=== PATIENT | male | born 1965 | race Caucasian/White ===

== ENCOUNTER 2017-07-10 09:02 | Day surgery (SDC) | payer OTHER ==
[~2017-07-10] VITALS: Ht 177.8 cm; Wt 61.7 kg
[~2017-07-10 09:02] MED LIST: ARPZ10T PO; CITA40TA19 PO; CLON0.5T3 PO; CPR500T PO; FLUC200T45 PO; HYDR25CA5 PO; METO10TA3 PO; NF-ESOM40C PO; NFPRILOC40 PO; NITR-65 PO; PANT40TA2 PO; QUET100T PO; SERT100T PO; SERT50TA9 PO; SUCR1TAB36 PO; TRAM50TA2 PO; TRAZ150T42 PO; TRM50T PO
[2017-07-10] MEDS ORDERED: LACTATED RINGERS 1,000 ML IV STA (09:16)
--- NOTE | 2017-07-10 09:20 | Progress Note-Pre Operative ---
Pre-Operative Progress Note H&P Reviewed The H&P was reviewed, patient examined and no changes noted. Date Seen by Provider: Jul 10, 2017 Time Seen by Provider: 09:20 Date H&P Reviewed: Jul 10, 2017 Time H&P Reviewed: 09:20 Pre-Operative Diagnosis: epigastric abdominal pain, reflux, melena JEFFREY RICHMOND DO Jul 10, 2017 09:20
[2017-07-10 09:24] VITALS: BP 116/77
[2017-07-10] MEDS ORDERED: HURRICAINE EXT TUBE (BENZOCAINE) ONE (09:27)
[2017-07-10] MEDS ORDERED: HURRICAINE EXT TUBE (BENZOCAINE) XX PRN (09:30)
[2017-07-10] MEDS ORDERED: PROPOFOL INJECTION 50 ML IV ONE (09:31)
[2017-07-10] MEDS ORDERED: MIDAZOLAM 2 MG/2 ML (VERSED) VIAL ONE (09:32)
--- NOTE | 2017-07-10 09:35 | Progress Note-Post Operative ---
Post-Operative Progess Note Surgeon (s)/Flare Maker (s) Surgeon JEFFREY RICHMOND DO Flare Maker: na Pre-Operative Diagnosis epigastric abdominal pain, reflux, melena Post-Operative Diagnosis antral mucosal change, hiatal hernia Procedure & Operative Findings Date of Procedure 07/10/17 Procedure Performed/Findings egd c biopsy antrum Anesthesia Type per galvanizing pot runner Estimated Blood Loss Estimated blood loss (mL): none Specimens/Packing Specimens Removed antrum JEFFREY RICHMOND DO Jul 10, 2017 09:35
--- NOTE | 2017-07-10 10:39 | Progress Note-Post Operative ---
Post-Operative Progess Note Surgeon (s)/Rim Roller Setter (s) Surgeon JEFFREY RICHMOND DO Rim Roller Setter: na Pre-Operative Diagnosis epigastric abdominal pain, reflux, melena Post-Operative Diagnosis small hiatal hernia, small bowel with healing ulceration, healing antral ulcer c small punctate ulcerations, esophageal inflammation likely mathis's colonoscopy normal except slight mucosal change descending colon Procedure & Operative Findings Date of Procedure 07/10/17 Procedure Performed/Findings egd c biopsies, colonoscopy with cold biopsy descending colon Anesthesia Type per heat treater helper Estimated Blood Loss Estimated blood loss (mL): scant Specimens/Packing Specimens Removed antrum, body stomach, distal esophagus, descending colon JEFFREY RICHMOND DO Jul 10, 2017 10:39
[2017-07-10] MEDS ORDERED: SUCR1TAB36 PO (10:40)
[2017-07-10] MEDS ORDERED: PANT40TA2 PO (10:40)
--- NOTE | 2017-07-10 10:41 | Discharge Inst-Simple/Standard ---
Discharge Inst-Standard Discharge Medications New, Converted or Re-Newed RX: Transmitted to Pharmacy Patient Instructions/Follow Up Plan of Care/Instructions/FU: 3 weeks Malissa Activity as Tolerated: Yes Discharge Diet: Regular Diet JEFFREY RICHMOND DO Jul 10, 2017 10:41
[2017-07-10 10:50] VITALS: BP 101/62
[2017-07-10 11:20] VITALS: BP 102/63
[2017-07-10 11:30] VITALS: BP 102/63
--- NOTE | 2017-07-10 22:08 | OPERATIVE REPORT ---
DATE OF SERVICE: 07/10/2017 PREOPERATIVE DIAGNOSES: Epigastric abdominal pain, reflux, melena. POSTOPERATIVE DIAGNOSES: Small hiatal hernia, small bowel with healing antral ulceration with small punctate ulcerations present as well, esophageal inflammation likely Damian's, colonoscopy normal except for some slight mucosal changes of the descending colon. PROCEDURE: EGD with biopsies, colonoscopy with cold biopsy descending colon. SURGEON: Jeffrey Leonardo DO. ANESTHESIA: Per CROP DUSTER. ESTIMATED BLOOD LOSS: Scant. COMPLICATIONS: None. INDICATIONS: The patient is a 51-year-old male who has history of SMA syndrome. He underwent significant bowel surgery resecting small bowel. He understands risks and benefits of procedures going to be performed today and wished to proceed. Consent was signed and on the chart. DESCRIPTION OF PROCEDURE: The patient was taken to the endoscopy suite, placed in left lateral recumbent position. Timeout was performed. Scope was inserted in mouth, down the esophagus, stomach, through the pylorus into the first portion of the duodenum that then had the appearance of two limbs of small bowel that were attached to it. Down one limb, there was question of slight AV malformation or a small ulceration. There is no active bleeding present. The other limb had normal appearance that was able to be visualized. The scope was then slowly retracted back. There was no other pathology from this point to the pylorus. In the antrum, the antrum had small punctate ulcerations and also the appearance of a small healing ulcer almost completely healed. Biopsy of this area was obtained. The scope was also retroflexed noting some mucosal changes to the body of the stomach, which biopsy was obtained. Small hiatal hernia noted. The scope was then returned to its normal position, slowly withdrawn into the distal esophagus, which had erythematous changes consistent with Damian's. There was one area that had a little bit of firmness by feel. Multiple biopsies were obtained from this area circumferentially. The scope was slowly retracted back noting no other pathology. Digital rectal exam was performed and there were no palpable polyps, mass or ulcerations. The scope was inserted in the rectum and advanced all the way to the cecum with minimal difficulty. Prep was adequate with irrigation and suction. The scope was then slowly retracted back. There were no polyps, masses or ulcerations in the cecum, ascending and transverse colon. Within the descending colon there was some slight mucosal change in one small section. Therefore, a cold biopsy was obtained. Scope was continued and slowly retracted back noting no other pathology. There were no polyps, masses or ulcerations within the descending or sigmoid colon. Once in the rectum, scope was also retroflexed noting no other pathology. Scope was then returned to its normal position, slowly withdrawn until completely removed. RECOMMENDATIONS: The patient will be started on Protonix 40 mg daily and Carafate 1 gram four times a day. We would recommend repeating EGD in approximately three to six months and depending upon pathology. The patient's colonoscopy, if family history of colon cancer or any issues, we would recommend repeat colonoscopy in 5 years. If he begins having symptoms or any change in bowels, we would consider repeating at that time. If he has no family history or no problems, we would recommend repeat colonoscopy in 10 years. The patient will follow up in the office in approximately 3 weeks. If he has any problems prior to that, he should be seen at that time. Job ID: [id number] DocumentID: [id number] Dictated Date: 07/10/2017 10:48:43 Band Straightener Date: 07/10/2017 19:32:30 Dictated By: JEFFREY LEONARDO DO
== END 2017-07-10 11:30 | disposition home or self-care (01) ==
LOC: ENDO 09:02
PROVIDERS: ATTEND Surgery
DX: K92.1 Melena (principal); K21.9 Gastro-esophageal reflux disease without esophagitis; K44.9 Diaphragmatic hernia without obstruction or gangrene; K25.9 Gastric ulcer, unspecified as acute or chronic, without hemorrhage or perforation; F17.210 Nicotine dependence, cigarettes, uncomplicated
CPT/HCPCS: 88305

== ENCOUNTER 2018-10-04 06:26 | Outpatient (CLI) | payer BC ==
[~2018-10-04] VITALS: Ht 177.8 cm; Wt 61.7 kg
[2018-10-04] MEDS ORDERED: ZINC50TA4 PO (14:14)
[2018-10-04] MEDS ORDERED: MULT-351 PO (14:14)
[2018-10-04] MEDS ORDERED: ASCO500C17 PO (14:14)
== END 2018-10-04 14:59 | disposition home or self-care (01) ==
LOC: PREOP 06:26
PROVIDERS: ATTEND Surgery
DX: Z01.818 Encounter for other preprocedural examination (principal)

== ENCOUNTER 2018-10-08 14:27 | Day surgery (SDC) | payer BC ==
[~2018-10-08] VITALS: Ht 177.8 cm; Wt 61.7 kg
[~2018-10-08 14:27] MED LIST changes: +ASCO500C17 PO; +MULT-351 PO; +ZINC50TA4 PO
--- OUTSIDE RECORDS SUMMARY | 2018-10-08 14:29 | XMS REPORT ---
Author Author GORDON KEATING [facility] Address [address] [place] [address] Care Team Providers Care Manufacturing Process Technician Name Role Phone GORDON KEATING Unavailable PROBLEMS Type Condition ICD9-CM Code FBX09-PP Code Onset Dates Condition Status SNOMED Code Problem Other chronic pain G89.29 Active 37991721 Problem Paranoid ideation F22 Active 903878729 Problem Anxiety, generalized F41.1 Active 53849228 Problem Damian''s esophagus without dysplasia K22.70 Active 040215120 Problem Mixed hyperlipidemia E78.2 Active 821859180 Problem Eosinophilia D72.1 Active 271340919 Problem Low back pain M54.5 Active 282757078 Problem GERD with esophagitis K21.0 Active 094379030 Problem Insomnia, unspecified type G47.00 Active 070163248 Problem Chronic fatigue R53.82 Active 87588960 Problem Moderate episode of recurrent major depressive disorder F33.1 Active 964587246 Problem Erectile dysfunction, unspecified erectile dysfunction type N52.9 Active 070656895 Problem Arthritis M19.90 Active 6584789 ALLERGIES No Known Allergies ENCOUNTERS Encounter Location Date Diagnosis [facility] [id number] [place] [address] Jul, Acute sinusitis J01.90 and Acute bronchitis J20.9 [facility] [id number] [place] [address] 16[address] Jul, Arthritis M19.90 [facility] [address] [address] Jun, Arthritis M19.90 [facility] [address] [id number] [place] [address]- 1404 May, Damian''s esophagus without dysplasia K22.70 ; Other chronic pain G89.29 ; Low back pain M54.5 ; Arthritis M19.90 ; Insomnia, unspecified type G47.00 ; GERD with esophagitis K21.0 and Anxiety, generalized F41.1 [place] [address] [address] May, [place] [address] [address] Jan, Other chronic pain G89.29 [place] [address] [address]- 4843 Nov, Other chronic pain G89.29 [place] [address] [address] Oct, Other chronic pain G89.29 [place] [address] [address] Sep, Moderate episode of recurrent major depressive disorder F33.1 ; GERD with esophagitis K21.0 ; Erectile dysfunction, unspecified erectile dysfunction type N52.9 ; Other chronic pain G89.29 ; Damian''s esophagus without dysplasia K22.70 and Mixed hyperlipidemia E78.2 [place] [address] [address]- [address] Sep, Low back pain M54.5 [place] [address] [address] Aug, GERD with esophagitis K21.0 ; Reactive depression F32.9 ; Chronic fatigue R53.82 ; Arthritis M19.90 ; Other chronic pain G89.29 and Low back pain M54.5 [place] [id number] [place] [address]- [address] Jul, Encounter to establish care with new doctor Z76.89 [place] [address] [address] Jun, Other chronic pain G89.29 [place] [address] [address]- 58[address] Jun, Other chronic pain G89.29 [place] [address] [address] [id number] [place] [address]- [address] May, GERD with esophagitis K21.0 and Other chronic pain G89.29 [place] [address] [id number] [place] [address] 23[address]- 1277 Apr, Low back pain M54.5 [place] [address] [address]- [address] Apr, Reactive depression F32.9 [place] [address] [address]- [address] Mar, Encounter to establish care with new doctor Z76.89 ; Weight loss, unintentional R63.4 ; Moderate episode of recurrent major depressive disorder F33.1 ; Chronic fatigue R53.82 ; Low back pain M54.5 ; Arthritis M19.90 ; Controlled substance agreement signed Z79.899 and High risk medication use Z79.899 [place] [address] [id number] [place] [address] 00248- 7666 Mar, Low back pain M54.5 [place] [address] [id number] [place] [address] 67148- 9[address] Mar, Reactive depression F32.9 ; Paranoid ideation F22 and Anxiety, generalized F41.1 [place] [address] [id number] [place] [address] 80943- 7196 Mar, [place] [address] [id number] [place] [address] 95510- 3922 Feb, [place] [address] [id number] [place] [address]28- 7904 Feb, [place] [address] [id number] [place] [address] 85717- 4626 Feb, Epigastric pain R10.13 ; Weight loss R63.4 and Eustachian tube dysfunction, left H69.82 [place] [id number] [place] [address] 98828- 4594 Jan, Reactive depression F32.9 and Low back pain M54.5 [place] [address] [id number] [place] [address] 61159- 6089 Sep, Reactive depression F32.9 and Irritable bowel syndrome without diarrhea K58.9 [place] [address] [id number] [place] [address] 44850- 7738 Aug, [place] [address] [id number] [place] [address] 76657- 6778 May, [place] [address] [id number] [place] [address] 87795- 4248 May, [place] [address] [id number] [place] [address] 47102- 6721 Mar, [place] [address] [id number] [place] [address] 72294- 8281 Mar, Leukocytosis, unspecified type D72.829 [place] [id number] [place] [address] 12348- 9072 Mar, Leukocytosis, unspecified type D72.829 [place] [address] [id number] [place] [address] 97159- 1329 Feb, Weight loss R63.4 ; Syncope, unspecified syncope type R55 ; Low back pain M54.5 ; Other chronic pain G89.29 and Reactive depression F32.9 [place] [address] [id number] [place] [address] 54294- 1566 Jul, [place] [address] [id number] [place] [address] 76529- 8891 May, Arthritis M19.90 [place] [address] [address] [id number] [place] [address] 11682- 5554 Apr, Chronic pain 338.29 [place] [address] [address] [id number] [place] [address] 36773- 3196 Apr, Anxiety state, unspecified 300.00 [facility] [address] [address] 17 Jan, 2015 Anxiety state, unspecified 300.00 [facility] [address] [address] 15 Jan, 2015 Chronic pain 338.29 and Anxiety state, unspecified 300.00 [facility] [address] [address] 12 Jan, 2015 [facility] [address] [address] 1611 Nov, [facility] [address] [address] 2199 Nov, [facility] [address] [address]- 7856 Oct, [facility] [address] [address]- 1455 Oct, [facility] [address] [address]- 5008 Oct, [facility] [address] [address]- 4990 Oct, [facility] [address] [address]- 0929 Sep, [facility] [place] [facility] [address] [address]- 7076 Sep, [facility] [place] [facility] [address] [address]- 7699 Sep, [facility] [place] [facility] [address] [address] Sep, [facility] [place] [facility] [address] [address]- 0364 May, [facility] [place] [facility] [address] [facility] [id number] [place] [address]- 5265 May, [facility] [place] [facility] [address] [id number] [place] [address]- 3814 Apr, [facility] [place] [facility] [address] [id number] [place] [address] Apr, [facility] [place] [facility] [address] [id number] [place] [address]- 4457 Jan, [facility] [place] [facility] [address] [id number] [place] [address]- 2958 Jan, [facility] [place] [facility] [address] [id number] [place] [address]- 7827 Jan, [facility] [place] [facility] [address] [id number] [place] [address]- 5432 Jan, [facility] [place] [facility] [address] [id number] [place] [address]- 6984 Jan, [facility] [place] [facility] [address] [id number] [place] [address]- 0418 December, [facility] [place] [facility] [address] [id number] [place] [address]- 5692 December, [facility] [place] [facility] [address] [id number] [place] [address]- 1729 Sep, [facility] [place] [facility] [address] [id number] [place] [address]- 2585 Sep, [facility] [place] [facility] [address] [id number] [place] [address] Aug, [facility] [place] [facility] [address] [id number] [place] [address]- 9754 Aug, [facility] [place] [facility] [address] [id number] [place] [address]- 3973 Jun, [facility] [place] [facility] [address] [id number] [place] [address]- 7258 Jun, [facility] [address] [id number] [place] [address]- 7850 May, [facility] [place] [facility] [address] [id number] [place] [address]- 6596 May, [facility] [place] [facility] [address] [facility] [id number] [place] [address] 2546 May, [facility] [place] [facility] [address] [id number] [place] [address]- 4367 Feb, [facility] [place] [facility] [address] [id number] [place] [address]- 6752 Jan, [facility] [place] [facility] [address] [id number] [place] [address]- 8766 Jan, [facility] [place] [facility] [address] [id number] [place] [address]- 7766 Jan, [facility] [place] [facility] [address] [id number] [place] [address]- 5165 Nov, [facility] [place] [facility] [address] [id number] [place] [address]- 8421 Sep, [facility] [place] [facility] [address] [id number] [place] [address]- 0876 Aug, [facility] [place] [facility] [address] [id number] [address]- 4047 Jul, [facility] [place] [facility] [address] [id number] [address]- 1421 Jul, [facility] [place] [facility] [address] [id number] [place] [address]- 1735 Jul, [facility] [place] [facility] [address] [facility] [id number] [place] [address]- 9752 Jul, [facility] [place] [facility] [address] [facility] [id number] [place] [address]- 3303 Jul, [facility] [place] [facility] [id number] Jul, [facility] [address] [address]- 8071 Jun, [facility] [address] [address]- 5309 Jun, [facility] [address] [address]- 6581 Jun, [facility] [address] [address]- 1187 Jun, [facility] [address] [address]- 0993 Feb, [facility] [address] [address]- 1212 Jan, [facility] [address] [address]- 6243 Jan, [facility] [address] [address]- 8982 Feb, [facility] [address] [address]- 4968 Jan, IMMUNIZATIONS No Known Immunizations SOCIAL HISTORY Never Assessed REASON FOR VISIT congestion,chest tightness, cough, head feels full, dizzy feeling, pt doesn't report any fevers but night sweats last night, vomitted yellow mucus that was thick Shelly Argueta PLAN OF CARE Activity Details Follow Up if not improving with PCP or reg follow up Reason: VITAL SIGNS Height 69 in 2018-08-02 Weight 147.2 lbs 2018-08-02 Temperature 97.9 degrees Fahrenheit 2018-08-02 Heart Rate 83 bpm 2018-08-02 Respiratory Rate 20 2018-08-02 BMI 21.74 kg/m2 2018-08-02 Blood pressure systolic 96 mmHg 2018-08-02 Blood pressure diastolic 62 mmHg 2018-08-02 MEDICATIONS Medication Instructions Dosage Frequency Start Date End Date Duration Status Pantoprazole Sodium 40 mg Orally Once a day 1 tablet 24h Aug, 90 days Active Vistaril 25 MG Orally 2 times a day 1 capsule as needed 12h 30 days Active PredniSONE 20 MG Orally Once a day 2 tablet 24h Jul, 5 days Active Doxycycline Monohydrate 100 MG Orally every 12 hrs 1 capsule 12h Jul, 10 day(s) Active Vitamin B Complex Active Tramadol HCl 50 mg Orally 2 times a day 1 tablet as needed 12h 28 days Active Reglan 5 mg Orally 4 times a day, ac & HS 2 tablets Feb, Active Fish Oil 1000 MG Orally Once a day 1 capsule 24h 30 day(s) Active Multi For Him 50+ - as directed Active RESULTS No Results PROCEDURES No Known procedures INSTRUCTIONS MEDICATIONS ADMINISTERED No Known Medications MEDICAL (GENERAL) HISTORY Type Description Date Medical History cardiovascular disorder-murmur as a child Medical History migraine headaches Medical History epilepsy and recurrent seizures as a child Medical History urologic disorder-hx of kidney infections Medical History endocrine disorder-hypoglycemia Surgical History muscle biopsy for trichinosis?? Surgical History abdominal surgery: bowel- unknown cause Surgical History EGD/colonoscopy 07/2017 Hospitalization History Hospitalization for surgery only
--- OUTSIDE RECORDS SUMMARY | 2018-10-08 14:30 | XMS REPORT ---
Author Author TIEN MARTÍNEZ Organization [facility] Address [address] [place] [address] Care Team Providers Care Logistics Clerk Name Role Phone TIEN MARTÍNEZ Unavailable PROBLEMS Type Condition ICD9-CM Code [id number] Code Onset Dates Condition Status SNOMED Code Problem Other chronic pain G89.29 Active 75904874 Problem Paranoid ideation F22 Active 106161493 Problem Anxiety, generalized F41.1 Active 78489601 Problem Damian''s esophagus without dysplasia K22.70 Active 340175352 Problem Mixed hyperlipidemia E78.2 Active 571838677 Problem Eosinophilia D72.1 Active 025687832 Problem Low back pain M54.5 Active 255004648 Problem GERD with esophagitis K21.0 Active 393735327 Problem Insomnia, unspecified type G47.00 Active 524864507 Problem Chronic fatigue R53.82 Active 54433317 Problem Moderate episode of recurrent major depressive disorder F33.1 Active 237494417 Problem Erectile dysfunction, unspecified erectile dysfunction type N52.9 Active 554120596 Problem Arthritis M19.90 Active 3341864 ALLERGIES No Information ENCOUNTERS Encounter Location Date Diagnosis [place] [id number] [place] [address] 02204- 3847 Jun, Arthritis M19.90 [facility] [id number] [place] [address] 72657- 7781 May, Damian''s esophagus without dysplasia K22.70 ; Other chronic pain G89.29 ; Low back pain M54.5 ; Arthritis M19.90 ; Insomnia, unspecified type G47.00 ; GERD with esophagitis K21.0 and Anxiety, generalized F41.1 [facility] [id number] [place] [address] 12514- 6345 May, [facility] [id number] [place] [address] 61500- 7254 Jan, Other chronic pain G89.29 [place] [id number] [place] [address] 06559- 8639 Nov, Other chronic pain G89.29 [place] [id number] [place] [address] 40142- 9159 Oct, Other chronic pain G89.29 [place] [id number] [place] [address] 72717- 8359 Sep, Moderate episode of recurrent major depressive disorder F33.1 ; GERD with esophagitis K21.0 ; Erectile dysfunction, unspecified erectile dysfunction type N52.9 ; Other chronic pain G89.29 ; Damian''s esophagus without dysplasia K22.70 and Mixed hyperlipidemia E78.2 [place] [id number] [place] [address] 56012- 2050 Sep, Low back pain M54.5 [place] [id number] [place] [address] 61243- 2311 Aug, GERD with esophagitis K21.0 ; Reactive depression F32.9 ; Chronic fatigue R53.82 ; Arthritis M19.90 ; Other chronic pain G89.29 and Low back pain M54.5 [place] [id number] [place] [address] 49314- 5623 Jul, Encounter to establish care with new doctor Z76.89 [place] [id number] [place] [address] 07938- 6050 Jun, Other chronic pain G89.29 [place] [id number] [place] [address] 67935- 1059 Jun, Other chronic pain G89.29 [place] [id number] [place] [address] 64170- 7529 May, GERD with esophagitis K21.0 and Other chronic pain G89.29 [place] [id number] [place] [address] 04121- 0716 Apr, Low back pain M54.5 [facility] [id number] [place] [address] 79028- 0403 Apr, Reactive depression F32.9 [place] [id number] [place] [address] 94079- 1047 Mar, Encounter to establish care with new doctor Z76.89 ; Weight loss, unintentional R63.4 ; Moderate episode of recurrent major depressive disorder F33.1 ; Chronic fatigue R53.82 ; Low back pain M54.5 ; Arthritis M19.90 ; Controlled substance agreement signed Z79.899 and High risk medication use Z79.899 [place] [address] 75779- 3854 Mar, Low back pain M54.5 [place] [address] 60803- 7168 Mar, Reactive depression F32.9 ; Paranoid ideation F22 and Anxiety, generalized F41.1 [place] [id number] [place] [address] 67388- 9795 Mar, [place] [id number] [place] [address] 41513- 7287 Feb, [place] [id number] [place] [address] 66388- 1090 Feb, [place] [address] 90546- 0786 Feb, Epigastric pain R10.13 ; Weight loss R63.4 and Eustachian tube dysfunction, left H69.82 [place] [address] 22324- 5709 Jan, Reactive depression F32.9 and Low back pain M54.5 [place] [id number] [place] [address] 11979- 8123 14 Sep, 2016 Reactive depression F32.9 and Irritable bowel syndrome without diarrhea K58.9 [facility] [id number] [place] [address] 30927- 2072 Aug, [facility] [id number] [place] [address] 86133- 4846 May, [facility] [id number] [place] [address] 51658- 0872 May, [facility] [address] 07108- 1745 Mar, [place] [id number] [place] [address] 94751- 8759 Mar, Leukocytosis, unspecified type D72.829 [place] [id number] [place] [address] 67219- 3469 Mar, Leukocytosis, unspecified type D72.829 [place] [id number] [place] [address] 44727- 6814 Feb, Weight loss R63.4 ; Syncope, unspecified syncope type R55 ; Low back pain M54.5 ; Other chronic pain G89.29 and Reactive depression F32.9 [place] [id number] [place] [address] 64203- 0383 Jul, [place] [id number] [place] [address] 08260- 3762 May, Arthritis M19.90 [place] [id number] [place] [address] 13205- 4691 Apr, Chronic pain 338.29 [place] [id number] [place] [address] 35951- 5505 Apr, Anxiety state, unspecified 300.00 [place] [id number] [place] [address] 31105- 3918 Jan, Anxiety state, unspecified 300.00 [place] [id number] [place] [address] 38769- 4984 Jan, Chronic pain 338.29 and Anxiety state, unspecified 300.00 [facility] [address] [address]- 4151 12 Jan, 2015 [facility] [address] [facility] [id number] [address]- 6272 14 Nov, 2014 [facility] [address] [facility] [id number], [place] [address]- 1316 Nov, [facility] [address] [facility] [id number], [place] [address]- 5227 Oct, [facility] [address] [place] [address] 67567- 0668 Oct, [facility] [id number] [address]- 4508 Oct, [facility] [address] [place] [address] 15460- 3695 Oct, [facility] [id number] [address]- 3085 Sep, [facility] [address] [address]- 9946 Sep, [facility] [address] [address]- 3623 Sep, [facility] [address] [address]- 1216 Sep, [facility] [id number], [place] [address]- 7736 May, [facility] [address] [address]- 7060 May, [facility] [id number], [place] [address]- 7530 Apr, [facility] [address] [place] [address]- 5200 Apr, [facility] [place] [facility] [address] [id number] [place] [address]- 1894 Jan, [facility] [place] [facility] [address] [id number] [place] [address]- 8670 Jan, [facility] [place] [facility] [address] [id number] [place] [address]- 2993 Jan, [facility] [place] [facility] [address] [id number] [place] [address]- 9793 Jan, [facility] [place] [facility] [address] [id number] [place] [address]- 7205 Jan, [facility] [place] [facility] [address] [id number] [place] [address]- 5257 December, [facility] [place] [facility] [address] [id number] [place] [address]- 5070 December, [facility] [place] [facility] [address] [id number] [place] [address]- 1604 Sep, [facility] [place] [facility] [address] [id number] [place] [address]- 1332 Sep, [facility] [place] [facility] [address] [id number], [place] [address]- 5944 Aug, [facility] [place] [facility] [address] [id number], [place] [address]- 1681 Aug, [facility] [place] [facility] [address] [id number], [place] [address]- 9857 Jun, [facility] [place] [facility] [address] [id number] [place] [address]- 9523 Jun, [facility] [place] [facility] [address] [id number] [place] [address]- 5379 May, [facility] [place] [facility] [address] [id number], [place] [address]- 7390 May, [facility] [place] [facility] [address] [id number], [place] [address]- 7586 May, [facility] [address] [id number] [place] [address]- 5283 Feb, [facility] [place] [facility] [address] [id number] [place] [address]- 1093 Jan, [facility] [place] [facility] [address] [facility] [id number] [place] [address]- 4616 Jan, [facility] [place] [facility] [address] [id number] [place] [address]- 2718 Jan, [facility] [place] [facility] [address] [id number] [place] [address]- 0648 Nov, [facility] [place] [facility] [address] [id number] [place] [address]- 4892 Sep, [facility] [address] [facility] [id number] [place] [address]- 7944 Aug, [facility] [place] [facility] [address] [id number] [place] [address]- 3343 Jul, [facility] [address] [id number] [place] [address]- 4672 Jul, [facility] [place] [facility] [address] [facility] [id number] [place] [address]- 3663 Jul, [facility] [place] [facility] [address] [id number] [place] [address]- 6476 Jul, [facility] [place] [facility] [address] [id number] [place] [address]- 2548 Jul, [facility] [place] [facility] [address] [id number] [place] 7301 Jul, [facility] [place] [facility] [address] [facility] [id number] [place] 4155 Jun, [facility] [place] [facility] [address] [facility] [id number] [place] 9501 Jun, [facility] [place] [facility] [id number], [place] [address]- 5076 Jun, [facility] [id number], [place] [address]- 7358 Jun, [facility] [address], [place] [address]- 6592 Feb, [facility] [id number], [place] [address]- 2134 Jan, [facility] [id number], [place] [address]- 3237 Jan, [facility] [id number], [place] [address]- 9166 Feb, [facility] [id number], [place] [address]- 7725 Jan, IMMUNIZATIONS No Known Immunizations SOCIAL HISTORY Never Assessed REASON FOR VISIT Controlled Med Refill 07/25 PLAN OF CARE VITAL SIGNS MEDICATIONS Medication Instructions Dosage Frequency Start Date End Date Duration Status Tramadol HCl 50 mg Orally 2 times a day 1 tablet as needed 12h 28 days Active RESULTS No Results PROCEDURES No Known [...]
--- OUTSIDE RECORDS SUMMARY | 2018-10-08 14:30 | XMS REPORT ---
Author Author IVORY JOHNSON [facility] Address [address] [place] [address] Care Team Providers Care Database Security Administrator Name Role Phone ALEX IVORY Unavailable PROBLEMS Type Condition ICD9-CM Code [id number] Code Onset Dates Condition Status SNOMED Code Problem Eosinophilia D72.1 Active 366123429 Problem Other chronic pain G89.29 Active 60031203 Problem Low back pain M54.5 Active 881053149 Problem Damian''s esophagus without dysplasia K22.70 Active 083990350 Problem Mixed hyperlipidemia E78.2 Active 880659144 Problem Erectile dysfunction, unspecified erectile dysfunction type N52.9 Active 948550403 Problem Moderate episode of recurrent major depressive disorder F33.1 Active 334587100 Problem Anxiety, generalized F41.1 Active 50613917 Problem Paranoid ideation F22 Active 763999802 Problem Arthritis M19.90 Active 4685381 Problem Chronic fatigue R53.82 Active 36079404 ALLERGIES No Information ENCOUNTERS Encounter Location Date Diagnosis [place] [id number] [place] [address] 27742- 4159 May, [facility] [id number] [place] [address] 79970- 2287 May, [facility] [id number] [place] [address] 93021- 7435 Jan, Other chronic pain G89.29 [facility] [id number] [place] [address] 41068- 0911 Nov, Other chronic pain G89.29 [facility] [address] 66110- 2631 Oct, Other chronic pain G89.29 [place] [address] 30208- 1661 Sep, Moderate episode of recurrent major depressive disorder F33.1 ; GERD with esophagitis K21.0 ; Erectile dysfunction, unspecified erectile dysfunction type N52.9 ; Other chronic pain G89.29 ; Damian''s esophagus without dysplasia K22.70 and Mixed hyperlipidemia E78.2 [place] [id number] [place] [address] 12029- 8555 Sep, Low back pain M54.5 [place] [address] 67774- 4301 Aug, GERD with esophagitis K21.0 ; Reactive depression F32.9 ; Chronic fatigue R53.82 ; Arthritis M19.90 ; Other chronic pain G89.29 and Low back pain M54.5 [place] [address] 14862- 1685 Jul, Encounter to establish care with new doctor Z76.89 [place] [address] 37344- 4515 Jun, Other chronic pain G89.29 [place] [address] 27802- 9736 Jun, Other chronic pain G89.29 [place] [address] 64540- 6957 May, GERD with esophagitis K21.0 and Other chronic pain G89.29 [place] [id number] [place] [address] 38115- 5007 Apr, Low back pain M54.5 [place] [address] 72547- 8852 Apr, Reactive depression F32.9 [place] [id number] [place] [address] 02482- 0386 Mar, Encounter to establish care with new doctor Z76.89 ; Weight loss, unintentional R63.4 ; Moderate episode of recurrent major depressive disorder F33.1 ; Chronic fatigue R53.82 ; Low back pain M54.5 ; Arthritis M19.90 ; Controlled substance agreement signed Z79.899 and High risk medication use Z79.899 [place] [address] 50364- 3396 Mar, Low back pain M54.5 [place] [id number] [place] [address] 71024- 8742 Mar, Reactive depression F32.9 ; Paranoid ideation F22 and Anxiety, generalized F41.1 [place] [id number] [place] [address] 71819- 5396 Mar, [place] [address] 48965- 1069 Feb, [place] [address] 88564- 3330 Feb, [place] [address] 61156- 0607 Feb, Epigastric pain R10.13 ; Weight loss R63.4 and Eustachian tube dysfunction, left H69.82 [place] [address] 11595- 4481 Jan, Reactive depression F32.9 and Low back pain M54.5 [place] [id number] [place] [address] 14758- 2204 14 Sep, 2016 Reactive depression F32.9 and Irritable bowel syndrome without diarrhea K58.9 [place] [id number] [place] [address] 80521- 9298 Aug, [place] [address] 23915- 6943 May, [facility] [id number] [place] [address] 02620- 5576 May, [place] [address] 00864- 8198 Mar, [facility] [id number] [place] [address] 94688- 5062 Mar, Leukocytosis, unspecified type D72.829 [facility] [id number] [place] [address] 75547- 0749 Mar, Leukocytosis, unspecified type D72.829 [facility] [id number] [place] [address] 07045- 3563 Feb, Weight loss R63.4 ; Syncope, unspecified syncope type R55 ; Low back pain M54.5 ; Other chronic pain G89.29 and Reactive depression F32.9 [facility] [address] 62288- 1062 Jul, [place] [id number] [place] [address] 35064- 1705 May, Arthritis M19.90 [facility] [address] 21100- 3292 Apr, Chronic pain 338.29 [facility] [id number] [place] [address] 13523- 4460 Apr, Anxiety state, unspecified 300.00 [facility] [id number] [place] [address] 33575- 7034 17 Jan, 2015 Anxiety state, unspecified 300.00 [facility] [id number] [place] [address] 94445- 5803 15 Jan, 2015 Chronic pain 338.29 and Anxiety state, unspecified 300.00 [facility] [id number] [place] [address] 17191- 6455 12 Jan, 2015 [facility] [id number] [place] [address] 32968- 0955 14 Nov, 2014 [facility] [id number] [place] [address] 77788- 7506 Nov, [facility] [address] [place] [address]- 1068 Oct, [facility] [place] [facility] [address] [id number] [place] [address]- 0289 Oct, 2014 [facility] [place] [facility] [address] [id number] [place] [address]- 1923 Oct, 2014 [facility] [place] [facility] [address] [id number] [place] [address]- 9516 Oct, 2014 [facility] [place] [facility] [address] [id number] [place] [address]- 9144 Sep, 2014 [facility] [place] [facility] [address] [id number] [place] [address]- 3291 Sep, 2014 [facility] [place] [facility] [address] [facility] [id number] [place] [address]- 5972 Sep, 2014 [facility] [place] [facility] [address] [facility] [id number] [place] [address]- 5462 Sep, 2014 [facility] [place] [facility] [address] [facility] [id number] [place] [address]- 6218 May, [facility] [place] [facility] [address] [facility] [id number] [place] [address]- 5441 May, [facility] [place] [facility] [address] [facility] [id number] [place] [address]- 9465 Apr, [facility] [place] [facility] [address] [facility] [id number] [place] [address]- 9473 Apr, [facility] [place] [facility] [address] [facility] [id number] [place] [address]- 3619 Jan, [facility] [place] [facility] [address] [facility] [id number] [place] 3395 Jan, [facility] [place] [facility] [address] [facility] [id number] [place] [address]- 1502 Jan, [facility] [place] [facility] [address] [facility] [id number] [place] [address]- 2228 Jan, [facility] [place] [facility] [address] [id number] [place] [address]- 5596 Jan, [facility] [place] [facility] [address] [id number] [place] [address]- 0712 December, [facility] [place] [facility] [address] [id number] [place] [address]- 1770 December, [facility] [place] [facility] [address] [id number] [place] [address]- 9556 Sep, [facility] [place] [facility] [address] [id number] [place] [address]- 9405 Sep, [facility] [place] [facility] [address] [id number] [place] [address]- 3336 Aug, [facility] [place] [facility] [address] [id number] [place] [address]- 1287 Aug, [facility] [place] [facility] [address] [id number] [place] [address]- 7059 Jun, [facility] [place] [facility] [address] [id number] [place] [address]- 2260 Jun, [facility] [place] [facility] [address] [id number] [place] [address]- 1797 May, [facility] [place] [facility] [address] [id number] [place] [address]- 0026 May, [facility] [place] [facility] [address] [id number] [place] [address]- 7256 May, [facility] [place] [facility] [address] [id number] [place] [address]- 1380 Feb, [facility] [place] [facility] [address] [id number] [place] [address]- 5536 Jan, [facility] [place] [facility] [address] [id number] [place] [address]- 5116 Jan, [facility] [place] [facility] [address] [id number] [place] [address]- 1732 Jan, [facility] [address] [id number] [place] [address]- 8162 Nov, [facility] [place] [facility] [address] [id number] [place] [address] Sep, [facility] [place] [facility] [address] [id number] [place] [address] Aug, [facility] [place] [facility] [address] [id number] [place] [address] Jul, [facility] [place] [facility] [address] [id number] [place] [address] Jul, [facility] [place] [facility] [address] [id number] [place] [address] Jul, [facility] [address] [id number] [place] [address] Jul, [facility] [place] [facility] [address] [id number] [place] [address] Jul, [facility] [place] [facility] [address] [id number] [place] [address] Jul, [facility] [place] [facility] [address] [id number] [place] [address] Jun, [facility] [place] [facility] [address] [id number] [place] [address] Jun, [facility] [place] [facility] [address] [id number] [place] [address] Jun, [facility] [place] [facility] [address] [id number] [place] [address] Jun, [facility] [place] [facility] [address] [id number] [place] [address] Feb, [facility] [place] [facility] [address] [id number] [place] [address] Jan, [facility] [place] [facility] [address] [facility] [id number] [place] [address] Jan, [facility] [address] [facility] [id number] [address] Feb, [facility] [address] [facility] [id number] [place] [address] Jan, IMMUNIZATIONS No Known Immunizations SOCIAL HISTORY Never Assessed REASON FOR VISIT NIS- Narcotic refill denied PLAN OF CARE VITAL SIGNS MEDICATIONS Unknown Medications RESULTS No Results PROCEDURES No Known procedures [...]
--- OUTSIDE RECORDS SUMMARY | 2018-10-08 14:30 | XMS REPORT ---
Author Author LISA SIMEON Organization [facility] Address [address] [place] [address] Care Team Providers Care Senior Patient Account Representative Name Role Phone LISA SIMEON Unavailable PROBLEMS Type Condition ICD9-CM Code VZN03-DV Code Onset Dates Condition Status SNOMED Code Problem Eosinophilia D72.1 Active 351282855 Problem Other chronic pain G89.29 Active 59218688 Problem Low back pain M54.5 Active 490139002 Problem Damian''s esophagus without dysplasia K22.70 Active 799167178 Problem Mixed hyperlipidemia E78.2 Active 474681504 Problem Erectile dysfunction, unspecified erectile dysfunction type N52.9 Active 384274002 Problem Moderate episode of recurrent major depressive disorder F33.1 Active 766204672 Problem Anxiety, generalized F41.1 Active 79600146 Problem Paranoid ideation F22 Active 239184126 Problem Arthritis M19.90 Active 0975460 Problem Chronic fatigue R53.82 Active 80877318 ALLERGIES No Information ENCOUNTERS Encounter Location Date Diagnosis [place] [address] 97679- 8049 Jan, Other chronic pain G89.29 [place] [address] [place] [id number] [place] [address] 84532- 3979 Nov, Other chronic pain G89.29 [facility] [id number] [place] [address] 96455- 9627 Oct, Other chronic pain G89.29 [place] [address] 41082- 6346 Sep, Moderate episode of recurrent major depressive disorder F33.1 ; GERD with esophagitis K21.0 ; Erectile dysfunction, unspecified erectile dysfunction type N52.9 ; Other chronic pain G89.29 ; Damian''s esophagus without dysplasia K22.70 and Mixed hyperlipidemia E78.2 [place] [address] [place] [id number] [place] [address] 93921- 0983 Sep, Low back pain M54.5 [place] [address] [place] [id number] [place] [address] 71101- 3866 Aug, GERD with esophagitis K21.0 ; Reactive depression F32.9 ; Chronic fatigue R53.82 ; Arthritis M19.90 ; Other chronic pain G89.29 and Low back pain M54.5 [place] [address] 73491- 9788 Jul, Encounter to establish care with new doctor Z76.89 [place] [address] 59009- 4507 Jun, Other chronic pain G89.29 [place] [address] 35300- 4012 Jun, Other chronic pain G89.29 [place] [address] 03330- 0105 May, GERD with esophagitis K21.0 and Other chronic pain G89.29 [place] [address] 41817- 9086 Apr, Low back pain M54.5 [place] [address] [place] [id number] [place] [address] 38374- 5897 Apr, Reactive depression F32.9 [place] [address] 78050- 2482 Mar, Encounter to establish care with new doctor Z76.89 ; Weight loss, unintentional R63.4 ; Moderate episode of recurrent major depressive disorder F33.1 ; Chronic fatigue R53.82 ; Low back pain M54.5 ; Arthritis M19.90 ; Controlled substance agreement signed Z79.899 and High risk medication use Z79.899 [place] [address] 19763- 0289 Mar, Low back pain M54.5 [facility] [address] [id number] [place] [address] 36359- 5105 Mar, Reactive depression F32.9 ; Paranoid ideation F22 and Anxiety, generalized F41.1 [facility] [address] [id number] [place] [address] 95580- 0389 Mar, [facility] [address] [place] [id number] [place] [address] 92578- 5011 Feb, [facility] [address] [place] [id number] [place] [address] 62531- 0148 Feb, [facility] [address] 15816- 3719 Feb, Epigastric pain R10.13 ; Weight loss R63.4 and Eustachian tube dysfunction, left H69.82 [facility] [address] [place] [id number] [place] [address] 71243- 6538 Jan, Reactive depression F32.9 and Low back pain M54.5 [facility] [address] [place] [id number] [place] [address] 06205- 5928 14 Sep, 2016 Reactive depression F32.9 and Irritable bowel syndrome without diarrhea K58.9 [facility] [address] [place] [id number] [place] [address] 62704- 7158 Aug, [facility] [address] [place] [id number] [place] [address] 45319- 2356 May, [facility] [address] [id number] [place] [address] 82416- 5025 May, [facility] [address] [place] [id number] [place] [address] 79148- 4353 Mar, [facility] [address] [place] [id number] [place] [address] 66409- 7482 Mar, Leukocytosis, unspecified type D72.829 [facility] [address] [place] [id number] [place] [address] 21063- 4562 Mar, Leukocytosis, unspecified type D72.829 [place] [address] [place] [id number] [place] [address] 51069- 2832 Feb, Weight loss R63.4 ; Syncope, unspecified syncope type R55 ; Low back pain M54.5 ; Other chronic pain G89.29 and Reactive depression F32.9 [place] [address] 45704- 1811 Jul, [facility] [address] 84494- 8051 May, Arthritis M19.90 [place] [address] 97342- 1497 Apr, Chronic pain 338.29 [place] [address] [place] [id number] [place] [address] 76699- 7047 Apr, Anxiety state, unspecified 300.00 [facility] [address] [place] [id number] [place] [address] 17083- 7971 Jan, Anxiety state, unspecified 300.00 [facility] [address] [place] [id number] [place] [address] 35772- 0474 Jan, Chronic pain 338.29 and Anxiety state, unspecified 300.00 [facility] [address] [place] [id number] [place] [address] 40079- 7289 Jan, [facility] [address] [place] [id number] [place] [address] 00941- 4210 Nov, [facility] [address] [place] [id number] [place] [address] 99279- 1189 Nov, [facility] [address] [place] [id number] [place] [address] 273730- 7369 Oct, [facility] [address] [place] [id number] [place] [address] 64723- 9383 Oct, [facility] [address] [place] [address] [place] [address] 1533 13 Oct, 2014 [facility] [place] [facility] [address] [id number] [place] [address]- 3815 Oct, [facility] [place] [facility] [address] [id number] [place] [address]- 3925 Sep, 2014 [facility] [place] [facility] [address] [id number] [place] [address]- 1713 Sep, 2014 [facility] [place] [facility] [address] [id number] [place] [address]- 0433 Sep, 2014 [facility] [place] [facility] [address] [id number] [place] [address]- 9688 Sep, 2014 [facility] [place] [facility] [address] [facility] [id number] [place] [address]- 4490 May, [facility] [place] [facility] [address] [id number] [place] [address]- 4308 May, [facility] [place] [facility] [address] [id number] [place] [address]- 3002 Apr, [facility] [place] [facility] [address] [id number] [place] [address]- 3437 Apr, [facility] [place] [facility] [address] [facility] [id number] [place] [address]- 0109 Jan, [facility] [place] [facility] [address] [id number] [place] [address]- 5220 Jan, [facility] [place] [facility] [address] [id number] [place] [address]- 4278 Jan, [facility] [place] [facility] [address] [id number] [place] [address]- 5354 Jan, [facility] [place] [facility] [address] [id number] [place] [address]- 1931 Jan, [facility] [place] [facility] [address] [id number] [place] [address]- 2158 December, [facility] [place] [facility] [address] [id number] [place] [address]- 5673 December, [facility] [place] [facility] [address] [id number] [place] [address]- 5514 Sep, [facility] [place] [facility] [address] [id number] [place] [address]- 6859 Sep, [facility] [place] [facility] [address] [id number] [place] [address]- 2011 Aug, [facility] [place] [facility] [address] [id number] [place] [address]- 0371 Aug, [facility] [place] [facility] [address] [id number] [place] [address]- 6060 Jun, [facility] [place] [facility] [address] [id number] [place] [address]- 3256 Jun, [facility] [place] [facility] [address] [id number] [place] [address]- 0498 May, [facility] [place] [facility] [address] [id number] [place] [address]- 9902 May, [facility] [place] [facility] [address] [id number] [place] [address]- 3334 May, [facility] [place] [facility] [address] [id number], [place] [address]- 7099 Feb, [facility] [place] [facility] [address] [id number], [place] [address]- 1117 Jan, [facility] [place] [facility] [address] [id number] [place] [address]- 7203 Jan, [facility] [place] [facility] [address] [id number], [place] [address]- 8106 Jan, [facility] [place] [facility] [address] [id number] [place] [address]- 6794 Nov, [facility] [place] [facility] [address] [id number] [place] [address]- 4995 Sep, [facility] [place] [facility] [address] [id number] [place] [address]- 0105 Aug, [facility] [place] [facility] [address] [id number] [place] [address]- 8086 Jul, [facility] [place] [facility] [address] [id number] [place] [address]- 7346 Jul, [facility] [place] [facility] [address] [id number] [place] [address]- 9256 Jul, [facility] [place] [facility] [address] [id number] [place] [address]- 8106 Jul, [facility] [place] [facility] [address] [id number] [place] [address]- 3274 Jul, [facility] [place] [facility] [address] [id number] [place] [address]- 5120 Jul, [facility] [place] [facility] [address] [id number] [place] [address]- 0857 Jun, [facility] [place] [facility] [address] [id number] [place] [address]- 7359 Jun, [facility] [place] [facility] [address] [id number] [place] [address]- 0563 Jun, [facility] [place] [facility] [address] [id number] [place] [address]- 9426 Jun, [facility] [place] [facility] [address] [id number] [place] [address]- 9571 Feb, [facility] [place] [facility] [address] [id number] [place] [address]- 2767 Jan, [facility] [place] [facility] [address] [id number] [place] [address]- 7836 Jan, [facility] [place] [facility] [address] [id number] [place] [address]- 2741 Feb, [facility] [address] [facility] [id number] [place] [address]- 8942 16 Jan, 2011 IMMUNIZATIONS No Known Immunizations SOCIAL HISTORY Never Assessed REASON FOR VISIT Controlled Med Refill PLAN OF CARE VITAL SIGNS MEDICATIONS Medication [...]
--- OUTSIDE RECORDS SUMMARY | 2018-10-08 14:30 | XMS REPORT ---
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 Name Role Phone TIEN MARTÍNEZ Unavailable PROBLEMS Type Condition ICD9-CM Code FDT36-QM Code Onset Dates Condition Status SNOMED Code Problem Other chronic pain G89.29 Active 27805342 Problem Paranoid ideation F22 Active 472143318 Problem Anxiety, generalized F41.1 Active 37526757 Problem Damian''s esophagus without dysplasia K22.70 Active 287145011 Problem Mixed hyperlipidemia E78.2 Active 301497215 Problem Eosinophilia D72.1 Active 422349248 Problem Low back pain M54.5 Active 225409957 Problem GERD with esophagitis K21.0 Active 370914355 Problem Insomnia, unspecified type G47.00 Active 724989077 Problem Chronic fatigue R53.82 Active 69708890 Problem Moderate episode of recurrent major depressive disorder F33.1 Active 500733740 Problem Erectile dysfunction, unspecified erectile dysfunction type N52.9 Active 001379103 Problem Arthritis M19.90 Active 7112900 ALLERGIES No Known Allergies ENCOUNTERS Encounter Location Date Diagnosis [place] [address] [place] [id number] [place] [address] 57945- 2833 18 May, 2018 Damian''s esophagus without dysplasia K22.70 ; Other chronic pain G89.29 ; Low back pain M54.5 ; Arthritis M19.90 ; Insomnia, unspecified type G47.00 ; GERD with esophagitis K21.0 and Anxiety, generalized F41.1 [facility] [address] [place] [id number] [place] [address] 71507- 8880 May, [facility] [address] [place] [id number] [place] [address] 33302- 4430 07 Jan, 2018 Other chronic pain G89.29 [facility] [address] [place] [address] [address]14- 8730 Nov, Other chronic pain G89.29 [place] [address] 03089- 3387 Oct, Other chronic pain G89.29 [place] [address] 83963- 9455 Sep, Moderate episode of recurrent major depressive disorder F33.1 ; GERD with esophagitis K21.0 ; Erectile dysfunction, unspecified erectile dysfunction type N52.9 ; Other chronic pain G89.29 ; Damian''s esophagus without dysplasia K22.70 and Mixed hyperlipidemia E78.2 [place] [address] 09846- 4255 Sep, Low back pain M54.5 [place] [address] 97433- 2765 Aug, GERD with esophagitis K21.0 ; Reactive depression F32.9 ; Chronic fatigue R53.82 ; Arthritis M19.90 ; Other chronic pain G89.29 and Low back pain M54.5 [place] [address] 11304- 8384 Jul, Encounter to establish care with new doctor Z76.89 [place] [address] [place] [id number] [place] [address] 62218- 0049 Jun, Other chronic pain G89.29 [place] [address] 61379- 0146 Jun, Other chronic pain G89.29 [place] [address] [place] [id number] [place] [address] 63111- 4655 May, GERD with esophagitis K21.0 and Other chronic pain G89.29 [place] [address] [place] [id number] [place] [address] 56887- 1984 Apr, Low back pain M54.5 [place] [address] 37406- 3432 Apr, Reactive depression F32.9 [place] [address] [place] [id number] [place] [address] 95884- 0622 Mar, Encounter to establish care with new doctor Z76.89 ; Weight loss, unintentional R63.4 ; Moderate episode of recurrent major depressive disorder F33.1 ; Chronic fatigue R53.82 ; Low back pain M54.5 ; Arthritis M19.90 ; Controlled substance agreement signed Z79.899 and High risk medication use Z79.899 [place] [address] [place] [id number] [place] [address] 13346- 0255 Mar, Low back pain M54.5 [place] [address] [place] [id number] [place] [address] 08785- 8647 Mar, Reactive depression F32.9 ; Paranoid ideation F22 and Anxiety, generalized F41.1 [place] [address] 17954- 8601 Mar, [place] [address] [place] [id number] [place] [address] 21412- 0444 Feb, [place] [address] 48601- 2919 Feb, [place] [address] [place] [id number] [place] [address] 05730- 1214 Feb, Epigastric pain R10.13 ; Weight loss R63.4 and Eustachian tube dysfunction, left H69.82 [place] [address] [place] [id number] [place] [address] 80396- 6407 Jan, Reactive depression F32.9 and Low back pain M54.5 [place] [address] 14453- 6873 14 Sep, 2016 Reactive depression F32.9 and Irritable bowel syndrome without diarrhea K58.9 [place] [address] [place] [id number] [place] [address] 06173- 5099 Aug, [place] [address] [address]- 9281 May, [facility] [address] [place] [id number] [place] [address] 92893- 4462 May, [facility] [address] [place] [address] 47685- 5524 Mar, [facility] [address] [place] [id number] [place] [address] 73435- 7039 Mar, Leukocytosis, unspecified type D72.829 [facility] [address] [place] [id number] [place] [address] 79255- 8866 Mar, Leukocytosis, unspecified type D72.829 [facility] [address] [place] [id number] [place] [address] 38787- 6312 Feb, Weight loss R63.4 ; Syncope, unspecified syncope type R55 ; Low back pain M54.5 ; Other chronic pain G89.29 and Reactive depression F32.9 [place] [address] [place] [id number] [place] [address] 29537- 5683 Jul, [place] [address] [place] [id number] [place] [address] 22187- 5412 May, Arthritis M19.90 [place] [address] [place] [id number] [place] [address] 65961- 1776 Apr, Chronic pain 338.29 [facility] [address] [place] [id number] [place] [address] 47281- 6999 Apr, Anxiety state, unspecified 300.00 [facility] [address] [place] [address] 18245- 6246 Jan, Anxiety state, unspecified 300.00 [facility] [address] [place] [id number] [place] [address] 90067- 6010 Jan, Chronic pain 338.29 and Anxiety state, unspecified 300.00 [facility] [address] [place] [id number] [place] [address] 47523- 2821 Jan, [facility] [place] [facility] [address] [id number] [place] [address]- 4243 14 Nov, 2014 [facility] [place] [facility] [address] [id number] [place] [address]- 0426 Nov, [facility] [place] [facility] [address] [facility] [id number] [place] [address]- 0015 Oct, [facility] [place] [facility] [address] [facility] [id number] [place] [address]- 5808 Oct, [facility] [place] [facility] [address] [id number] [place] [address]- 2892 Oct, [facility] [place] [facility] [address] [facility] [id number] [place] [address]- 0269 Oct, [facility] [place] [facility] [id number] [place] [address]- 4843 Sep, [facility] [place] [facility] [address] [facility] [id number] [place] [address]- 8879 Sep, [facility] [place] [facility] [address] [facility] [id number] [place] [address]- 9101 Sep, [facility] [place] [facility] [address] [facility] [id number] [place] [address]- 8737 Sep, [facility] [place] [facility] [address] [facility] [id number] [place] [address]- 5217 May, [facility] [place] [facility] [address] [facility] [id number], [place] [address]- 4833 May, [facility] [place] [facility] [address] [facility] [id number], [place] [address]- 6052 Apr, [facility] [place] [facility] [address] [facility] [id number] [place] [address]- 3083 Apr, [facility] [place] [facility] [address] [facility] [id number][place] [address]- 3312 Jan, [facility] [place] [facility] [address] [id number] [place] [address]- 6875 Jan, [facility] [place] [facility] [address] [id number] [place] [address]- 4611 Jan, [facility] [place] [facility] [address] [id number] [place] [address]- 1553 Jan, [facility] [place] [facility] [address] [id number] [place] [address]- 2292 Jan, [facility] [place] [facility] [address] [id number] [place] [address]- 9348 December, [facility] [place] [facility] [address] [id number] [place] [address]- 6626 December, [facility] [place] [facility] [address] [id number] [place] [address]- 7529 Sep, [facility] [place] [facility] [address] [id number] [place] [address]- 1645 Sep, [facility] [place] [facility] [address] [id number] [place] [address]- 5221 Aug, [facility] [place] [facility] [address] [id number] [place] [address]- 7420 Aug, [facility] [place] [facility] [address] [id number] [place] [address]- 4762 Jun, [facility] [place] [facility] [address] [id number] [place] [address]- 0834 Jun, [facility] [place] [facility] [address] [id number] [place] [address]- 0091 May, [facility] [place] [facility] [address] [id number] [place] [address]- 9033 May, [facility] [place] [facility] [address] [id number] [place] [address]- 2014 May, [facility] [place] [facility] [address] [id number] [place] [address]- 2546 Feb, [facility] [place] [facility] [address] [id number] [place] [address]- 9824 Jan, [facility] [place] [facility] [address] [id number] [place] [address]- 9856 Jan, [facility] [place] [facility] [address] [id number] [place] [address]- 6416 Jan, [facility] [place] [facility] [address] [id number] [place] [address]- 7828 Nov, [facility] [place] [facility] [address] [id number] [place] [address]- 2512 Sep, [facility] [place] [facility] [address] [id number] [place] [address] Aug, [facility] [place] [facility] [address] [id number] [place] [address] Jul, [facility] [place] [facility] [address] [id number] [place] [address] Jul, [facility] [place] [facility] [address] [id number] [place] [address] Jul, [facility] [place] [facility] [address] [id number] [place] [address] Jul, [facility] [place] [facility] [address] [id number] [place] [address] Jul, [facility] [place] [facility] [address] [id number] [place] [address] Jul, [facility] [place] [facility] [address] [id number] [place] [address] Jun, [facility] [place] [facility] [address] [id number] [place] [address] Jun, [facility] [place] [facility] [address] [id number] [place] [address] Jun, [facility] [place] [facility] [address] [facility] [id number] [place] [address] Jun, [facility] [address] [facility] [id number] [address] Feb, [facility] [address] [id number] [address] Jan, [facility] [address] [id number] [address] Jan, [facility] [address] [id number] [address] Feb, [facility] [id number] [address] Jan, IMMUNIZATIONS No Known Immunizations SOCIAL HISTORY Never Assessed REASON FOR VISIT New provider visit-[place],RMA, pt needs refill on meds PLAN OF CARE Activity Details Follow Up 3 months or as indicated by lab Reason: VITAL SIGNS Height 69 in 2018-06-13 Weight 142.7 lbs 2018-06-13 Temperature 98.2 degrees Fahrenheit 2018-06-13 Heart Rate 58 bpm 2018-06-13 Respiratory Rate 20 2018-06-13 Oximetry on room air:97 % 2018-06-13 BMI 21.07 kg/m2 2018-06-13 Blood pressure systolic 110 mmHg 2018-06-13 Blood pressure diastolic 60 mmHg 2018-06-13 MEDICATIONS Medication Instructions Dosage Frequency Start Date End Date Duration Status Vistaril 25 MG Orally 2 times a day 1 capsule as needed 12h 30 days Not-Taking Tramadol HCl 50 mg Orally 2 times a day 1 tablet as needed 12h 28 days Active Vitamin B Complex Not-Taking Reglan 5 mg Orally 4 times a day, ac & HS 2 tablets Feb, Active Quetiapine Fumarate 100 mg Orally Once a day Take 1 tablet by mouth at bedtime. 24h 90 days Active Zoloft 100 mg Orally Once a day 1 tablet 24h 14 Sep, 2016 Not-Taking Pantoprazole Sodium 40 mg Orally Once a day 1 tablet 24h Aug, 90 days Active RESULTS No Results PROCEDURES No [...]
--- OUTSIDE RECORDS SUMMARY | 2018-10-08 14:30 | XMS REPORT ---
Author Author TIEN MARTÍNEZ Organization [facility] Address [address] [place] [address] Care Team Providers Care Electrotype Molder Name Role Phone TIEN MARTÍNEZ Unavailable PROBLEMS Type Condition ICD9-CM Code SJG73-MD Code Onset Dates Condition Status SNOMED Code Problem Other chronic pain G89.29 Active 77597226 Problem Paranoid ideation F22 Active 333823842 Problem Anxiety, generalized F41.1 Active 49985329 Problem Damian''s esophagus without dysplasia K22.70 Active 187454154 Problem Mixed hyperlipidemia E78.2 Active 490835558 Problem Eosinophilia D72.1 Active 810664203 Problem Low back pain M54.5 Active 272672637 Problem GERD with esophagitis K21.0 Active 142016670 Problem Insomnia, unspecified type G47.00 Active 260325809 Problem Chronic fatigue R53.82 Active 36660034 Problem Moderate episode of recurrent major depressive disorder F33.1 Active 013880333 Problem Erectile dysfunction, unspecified erectile dysfunction type N52.9 Active 858003492 Problem Arthritis M19.90 Active 7830257 ALLERGIES No Information ENCOUNTERS Encounter Location Date Diagnosis [place] [id number] [place] [address]11- 8449 Jul, Arthritis M19.90 [facility] [id number] [place] [address] 30770- 2480 Jun, Arthritis M19.90 [facility] [id number] [place] [address] 51472- 9284 May, Damian''s esophagus without dysplasia K22.70 ; Other chronic pain G89.29 ; Low back pain M54.5 ; Arthritis M19.90 ; Insomnia, unspecified type G47.00 ; GERD with esophagitis K21.0 and Anxiety, generalized F41.1 [place] [address] [place] [address] May, [place] [id number] [place] [address] 20800- 1002 Jan, Other chronic pain G89.29 [place] [id number] [place] [address] 54232- 7104 Nov, Other chronic pain G89.29 [place] [address] 35173- 4707 Oct, Other chronic pain G89.29 [place] [address] 55508- 8711 Sep, Moderate episode of recurrent major depressive disorder F33.1 ; GERD with esophagitis K21.0 ; Erectile dysfunction, unspecified erectile dysfunction type N52.9 ; Other chronic pain G89.29 ; Damian''s esophagus without dysplasia K22.70 and Mixed hyperlipidemia E78.2 [place] [address] 50834- 2354 Sep, Low back pain M54.5 [place] [address] 36870- 5255 Aug, GERD with esophagitis K21.0 ; Reactive depression F32.9 ; Chronic fatigue R53.82 ; Arthritis M19.90 ; Other chronic pain G89.29 and Low back pain M54.5 [place] [id number] [place] [address] 09095- 8592 Jul, Encounter to establish care with new doctor Z76.89 [place] [id number] [place] [address] 23171- 4596 Jun, Other chronic pain G89.29 [place] [id number] [place] [address] 01328- 1093 Jun, Other chronic pain G89.29 [place] [id number] [place] [address] 06383- 4175 20 Oct, 2017 GERD with esophagitis K21.0 and Other chronic pain G89.29 [place] [id number] [place] [address] 04287- 8636 Apr, Low back pain M54.5 [place] [id number] [place] [address] 78535- 2734 Apr, Reactive depression F32.9 [place] [address] 35411- 8800 Mar, Encounter to establish care with new doctor Z76.89 ; Weight loss, unintentional R63.4 ; Moderate episode of recurrent major depressive disorder F33.1 ; Chronic fatigue R53.82 ; Low back pain M54.5 ; Arthritis M19.90 ; Controlled substance agreement signed Z79.899 and High risk medication use Z79.899 [place] [address] 89591- 5796 Mar, Low back pain M54.5 [place] [address] 48009- 1769 Mar, Reactive depression F32.9 ; Paranoid ideation F22 and Anxiety, generalized F41.1 [place] [id number] [place] [address] 40555- 0627 Mar, [place] [id number] [place] [address] 93098- 9738 Feb, [place] [address] 76287- 2434 Feb, [place] [id number] [place] [address] 03035- 7103 Feb, Epigastric pain R10.13 ; Weight loss R63.4 and Eustachian tube dysfunction, left H69.82 [place] [id number] [place] [address] 20683- 1519 Jan, Reactive depression F32.9 and Low back pain M54.5 [place] [id number] [place] [address] 3968 14 Sep, 2016 Reactive depression F32.9 and Irritable bowel syndrome without diarrhea K58.9 [facility] [id number] [place] [address] 15306- 1783 Aug, [facility] [id number] [place] [address] 00866- 3230 May, [facility] [id number] [place] [address] 06689- 9612 May, [facility] [id number] [place] [address] 08154- 1283 Mar, [place] [id number] [place] [address] 90148- 6782 Mar, Leukocytosis, unspecified type D72.829 [place] [id number] [place] [address] 68103- 1574 Mar, Leukocytosis, unspecified type D72.829 [place] [id number] [place] [address] 82950- 6474 Feb, Weight loss R63.4 ; Syncope, unspecified syncope type R55 ; Low back pain M54.5 ; Other chronic pain G89.29 and Reactive depression F32.9 [place] [id number] [place] [address] 15974- 3852 Jul, [place] [id number] [place] [address] 17308- 4548 May, Arthritis M19.90 [facility] [id number] [place] [address] 26358- 7114 Apr, Chronic pain 338.29 [place] [id number] [place] [address] 66134- 3118 Apr, Anxiety state, unspecified 300.00 [facility] [id number] [place] [address] 01134- 8814 Jan, Anxiety state, unspecified 300.00 [facility] [id number] [place] [address]- 68[address] 15 Jan, 2015 Chronic pain 338.29 and Anxiety state, unspecified 300.00 [facility] [address] [facility] [id number] [place] [address]- 3989 12 Jan, 2015 [facility] [id number] [place] [address]- 2357 Nov, [facility] [address] [facility] [id number] [place] [address]- 9629 Nov, [facility] [id number] [place] [address], [place] [address]- 3296 Oct, [facility] [id number] [address]- 0382 Oct, [facility] [id number] [place] [address], [place] [address]- 5405 Oct, [facility] [id number] [address]- 5545 Oct, [facility] [id number] [address]- 4002 Sep, [facility] [address] [place] [address]- 6524 Sep, [facility] [address] [place] [address]- 0353 Sep, [facility] [id number] [address]- 5415 Sep, [facility] [address] May, [facility] [address] [place] [address] 1986 May, [facility] [address] [place] [address]- 4296 Apr, [facility] [place] [facility] [address] [id number] [place] [address]- 6375 Apr, [facility] [place] [facility] [address] [id number] [place] [address]- 3514 Jan, [facility] [place] [facility] [address] [id number] [place] [address] Jan, [facility] [place] [facility] [address] [id number] [place] [address]- 1182 Jan, [facility] [place] [facility] [address] [id number] [place] [address]- 1285 Jan, [facility] [place] [facility] [address] [id number] [place] [address]- 8683 Jan, [facility] [place] [facility] [address] [id number] [place] [address]- 9044 December, [facility] [place] [facility] [address] [id number] [place] [address]- 0635 December, [facility] [place] [facility] [address] [id number] [place] [address]- 4239 Sep, [facility] [place] [facility] [address] [id number] [place] [address]- 6338 Sep, [facility] [place] [facility] [address] [id number] [place] [address]- 0107 Aug, [facility] [place] [facility] [address] [id number], [place] [address]- 1440 Aug, [facility] [place] [facility] [address] [id number] [place] [address]- 9532 Jun, [facility] [place] [facility] [address] [id number] [place] [address]- 4682 Jun, [facility] [place] [facility] [address] [id number] [place] [address]- 8762 May, [facility] [place] [facility] [address] [id number] [place] [address]- 1573 May, [facility] [address] [id number] [place] [address]- 4269 May, [facility] [place] [facility] [address] [id number] [place] [address]- 2466 Feb, [facility] [address] [id number] [place] [address]- 8517 Jan, [facility] [place] [facility] [address] [id number] [place] [address]- 4350 Jan, [facility] [address] [id number] [place] [address]- 9365 Jan, [facility] [place] [facility] [address] [id number] [place] [address]- 8804 Nov, [facility] [address] [id number] [place] [address]- 0641 Sep, [facility] [address] [id number] [place] [address]- 6865 Aug, [facility] [address] [id number] [place] [address]- 6254 Jul, [facility] [address] [id number] [place] [address]- 8467 Jul, [facility] [place] [facility] [address] [id number] [place] [address] 2546 Jul, [facility] [place] [facility] [address] [id number] [place] [address]- 254 Jul, [facility] [place] [facility] [address] [id number] [place] [address] 2546 Jul, [facility] [place] [facility] [address] [id number] [place] [address]- 2542 Jul, [facility] [place] [facility] [address] [id number] [place] [address]- 3316 Jun, [facility] [id number] [address]- 1037 Jun, [facility] [id number] [address]- 0676 Jun, [facility] [id number] [address]- 2697 Jun, [facility] [address], [place] [address] 2546 Feb, [facility] [id number] [address]- 4581 Jan, [facility] [address], [place] [address]- 6649 Jan, [facility] [address], [place] [address]- 6718 Feb, [facility] [id number] [address]- 9124 Jan, IMMUNIZATIONS No Known Immunizations SOCIAL HISTORY Never Assessed REASON FOR VISIT Lab (walk-in) PLAN OF CARE Activity Details Pending Test PDM - 09 PANEL (PROFILE 1) VITAL SIGNS MEDICATIONS Unknown Medications RESULTS No Results PROCEDURES Procedure Date Ordered Result Body Site 09 PANEL (PROFILE 1) Jul 31, 2018 INSTRUCTIONS MEDICATIONS ADMINISTERED No Known Medications MEDICAL [...]
--- OUTSIDE RECORDS SUMMARY | 2018-10-08 14:31 | XMS REPORT ---
Author GORDON Benoit [facility] eClinicalWorks Address Unknown Phone Unavailable Care Team Providers Care Vulcanizer Name Role Phone GORDON SALMON CP Unavailable Allergies, Adverse Reactions, Alerts Substance Reaction Event Type N.K.D.A. Info Not Available Non Drug Allergy Problems Problem Type Condition Code Onset Dates Condition Status Problem Other malaise and fatigue 780.79 Active Problem Other abnormal glucose 790.29 Active Problem Chronic pain 338.29 Active Problem Impotence of organic origin 607.84 Active Assessment Arthritis M19.90 Active Medications Medication Code System Code Instructions Start Date End Date Status Dosage Zoloft [facility] [address]-94 50 MG Orally Once a day February 10, 2015 2 tablets Tramadol HCl [facility] [address]-62 50 MG Orally every 6 hrs 1 tablet as needed Vistaril [facility] [address]-32 25 MG Orally 2 times a day 1 capsule as needed Procedures Procedure Coding System Code Date Office Visit, Est Pt., Level 2 CPT-4 28199 Jun 10, 2015 Vital Signs Date/Time: Jun 10, 2015 Temperature 98.0 F Weight 158 lbs Height 69 in BMI 23.33 Index Blood Pressure Diastolic 68 mmHg Blood Pressure Systolic 112 mmHg Cardiac Monitoring Heart Rate 60 bpm Results No Known Results Summary Purpose eClinicalWorks Submission
--- OUTSIDE RECORDS SUMMARY | 2018-10-08 14:31 | XMS REPORT ---
Author Author LISA SIMEON Organization [facility] Address [address] [place] [address] Care Team Providers Care Producer Assistant Name Role Phone LISA SIMEON Unavailable PROBLEMS Type Condition ICD9-CM Code AWK70-BS Code Onset Dates Condition Status SNOMED Code Problem Eosinophilia D72.1 Active 862200096 Problem Other chronic pain G89.29 Active 46269228 Problem Low back pain M54.5 Active 995827968 Problem Damian''s esophagus without dysplasia K22.70 Active 537210691 Problem Mixed hyperlipidemia E78.2 Active 379104330 Problem Erectile dysfunction, unspecified erectile dysfunction type N52.9 Active 892830345 Problem Moderate episode of recurrent major depressive disorder F33.1 Active 948862452 Problem Anxiety, generalized F41.1 Active 21047627 Problem Paranoid ideation F22 Active 477940065 Problem Arthritis M19.90 Active 7077764 Problem Chronic fatigue R53.82 Active 83899615 ALLERGIES No Information ENCOUNTERS Encounter Location Date Diagnosis [place] [address] 11875- 2746 Jan, Other chronic pain G89.29 [place] [address] [place] [id number] [place] [address] 15620- 5754 Nov, Other chronic pain G89.29 [facility] [address] [place] [id number] [place] [address] 56852- 0745 Oct, Other chronic pain G89.29 [place] [address] 91784- 5025 Sep, Moderate episode of recurrent major depressive disorder F33.1 ; GERD with esophagitis K21.0 ; Erectile dysfunction, unspecified erectile dysfunction type N52.9 ; Other chronic pain G89.29 ; Damian''s esophagus without dysplasia K22.70 and Mixed hyperlipidemia E78.2 [place] [address] [place] [id number] [place] [address] 94374- 9843 Sep, Low back pain M54.5 [place] [address] [place] [id number] [place] [address] 94056- 0106 Aug, GERD with esophagitis K21.0 ; Reactive depression F32.9 ; Chronic fatigue R53.82 ; Arthritis M19.90 ; Other chronic pain G89.29 and Low back pain M54.5 [place] [address] 24054- 1071 Jul, Encounter to establish care with new doctor Z76.89 [place] [address] 97406- 4252 Jun, Other chronic pain G89.29 [place] [address] 76951- 8217 Jun, Other chronic pain G89.29 [place] [address] 66769- 5123 May, GERD with esophagitis K21.0 and Other chronic pain G89.29 [place] [address] 40192- 7774 Apr, Low back pain M54.5 [place] [address] [place] [id number] [place] [address] 78215- 0579 Apr, Reactive depression F32.9 [place] [address] 18148- 3590 Mar, Encounter to establish care with new doctor Z76.89 ; Weight loss, unintentional R63.4 ; Moderate episode of recurrent major depressive disorder F33.1 ; Chronic fatigue R53.82 ; Low back pain M54.5 ; Arthritis M19.90 ; Controlled substance agreement signed Z79.899 and High risk medication use Z79.899 [place] [address] 51052- 0108 Mar, Low back pain M54.5 [facility] [address] [place] [id number] [place] [address] 73248- 4747 Mar, Reactive depression F32.9 ; Paranoid ideation F22 and Anxiety, generalized F41.1 [facility] [address] [place] [id number] [place] [address] 06241- 1045 Mar, [facility] [address] [place] [address] [id number] [place] [address] 85973- 8510 Feb, [facility] [address] [place] [address] [id number] [place] [address] 98816- 8734 Feb, [facility] [address] 69432- 7568 Feb, Epigastric pain R10.13 ; Weight loss R63.4 and Eustachian tube dysfunction, left H69.82 [facility] [address] [place] [id number] [place] [address] 61446- 6125 Jan, Reactive depression F32.9 and Low back pain M54.5 [facility] [address] [place] [id number] [place] [address] 47030- 3761 14 Sep, 2016 Reactive depression F32.9 and Irritable bowel syndrome without diarrhea K58.9 [facility] [address] [place] [id number] [place] [address] 74913- 1034 Aug, [facility] [address] [place] [id number] [place] [address] 17713- 1097 May, [facility] [address] [place] [id number] [place] [address] 26204- 1695 May, [facility] [address] [place] [id number] [place] [address] 08097- 3198 Mar, [facility] [address] [place] [id number] [place] [address] 38293- 0773 Mar, Leukocytosis, unspecified type D72.829 [facility] [address] [place] [id number] [place] [address] 61494- 7635 Mar, Leukocytosis, unspecified type D72.829 [place] [address] [place] [id number] [place] [address] 98502- 7421 Feb, Weight loss R63.4 ; Syncope, unspecified syncope type R55 ; Low back pain M54.5 ; Other chronic pain G89.29 and Reactive depression F32.9 [place] [address] 75014- 1650 Jul, [facility] [address] 84708- 9493 May, Arthritis M19.90 [place] [address] 28178- 2902 Apr, Chronic pain 338.29 [place] [address] [place] [id number] [place] [address] 05280- 4585 Apr, Anxiety state, unspecified 300.00 [facility] [address] [place] [id number] [place] [address] 93002- 5787 Jan, Anxiety state, unspecified 300.00 [facility] [address] [place] [id number] [place] [address] 65794- 4114 Jan, Chronic pain 338.29 and Anxiety state, unspecified 300.00 [facility] [address] [place] [id number] [place] [address] 27751- 5912 Jan, [facility] [address] [place] [id number] [place] [address] 26907- 7893 Nov, [facility] [address] [place] [id number] [place] [address] 03056- 4493 Nov, [facility] [address] [place] [id number] [place] [address] 608627- 7187 Oct, [facility] [address] [place] [id number] [place] [address] 05019- 8074 Oct, [facility] [address] [place] [address] [address] 7570 13 Oct, 2014 [facility] [place] [facility] [address] [id number] [place] [address]- 6855 Oct, [facility] [place] [facility] [address] [id number] [place] [address]- 8451 Sep, 2014 [facility] [place] [facility] [address] [id number] [place] [address]- 6513 Sep, 2014 [facility] [place] [facility] [address] [id number] [place] [address]- 5330 Sep, 2014 [facility] [place] [facility] [address] [id number] [place] [address]- 3309 Sep, 2014 [facility] [place] [facility] [address] [facility] [id number] [place] [address]- 7483 May, [facility] [place] [facility] [address] [id number] [place] [address]- 5144 May, [facility] [place] [facility] [address] [id number] [place] [address]- 5952 Apr, [facility] [place] [facility] [address] [id number] [place] [address]- 9766 Apr, [facility] [place] [facility] [address] [facility] [id number] [place] [address]- 6479 Jan, [facility] [place] [facility] [address] [id number] [place] [address]- 3441 Jan, [facility] [place] [facility] [address] [id number] [place] [address]- 9619 Jan, [facility] [place] [facility] [address] [id number] [place] [address]- 1030 Jan, [facility] [place] [facility] [address] [id number] [place] [address]- 3402 Jan, [facility] [place] [facility] [address] [id number] [place] [address]- 2599 December, [facility] [place] [facility] [address] [id number] [place] [address]- 1304 December, [facility] [place] [facility] [address] [id number] [place] [address]- 4949 Sep, [facility] [place] [facility] [address] [id number] [place] [address]- 0723 Sep, [facility] [place] [facility] [address] [id number] [place] [address]- 0047 Aug, [facility] [place] [facility] [address] [id number] [place] [address]- 1793 Aug, [facility] [place] [facility] [address] [id number] [place] [address]- 3145 Jun, [facility] [place] [facility] [address] [id number] [place] [address]- 9361 Jun, [facility] [place] [facility] [address] [id number] [place] [address]- 8915 May, [facility] [place] [facility] [address] [id number] [place] [address]- 2976 May, [facility] [place] [facility] [address] [id number] [place] [address]- 8752 May, [facility] [place] [facility] [address] [id number] [address]- 6652 Feb, [facility] [place] [facility] [address] [id number] [address]- 8397 Jan, [facility] [place] [facility] [address] [id number] [place] [address]- 7109 Jan, [facility] [place] [facility] [address] [id number] [address]- 6896 Jan, [facility] [place] [facility] [address] [id number] [place] [address]- 4985 Nov, [facility] [place] [facility] [address] [id number] [place] [address]- 9445 Sep, [facility] [place] [facility] [address] [id number] [place] [address]- 6466 Aug, [facility] [place] [facility] [address] [id number] [place] [address]- 7716 Jul, [facility] [place] [facility] [address] [id number] [place] [address]- 9716 Jul, [facility] [place] [facility] [address] [id number] [place] [address]- 4586 Jul, [facility] [place] [facility] [address] [id number] [place] [address]- 1576 Jul, [facility] [place] [facility] [address] [id number] [place] [address]- 1356 Jul, [facility] [place] [facility] [address] [id number] [place] [address]- 7946 Jul, [facility] [place] [facility] [address] [id number] [place] [address]- 4978 Jun, [facility] [place] [facility] [address] [id number] [place] [address]- 7923 Jun, [facility] [place] [facility] [address] [id number] [place] [address]- 3281 Jun, [facility] [place] [facility] [address] [id number] [place] [address]- 6076 Jun, [facility] [place] [facility] [address] [id number] [place] [address]- 0172 Feb, [facility] [place] [facility] [address] [id number] [place] [address]- 4872 Jan, [facility] [place] [facility] [address] [id number] [place] [address]- 0056 Jan, [facility] [place] [facility] [address] [id number] [place] [address]- 2935 Feb, [facility] [address] [facility] [id number] [place] [address]- 2347 16 Jan, 2011 IMMUNIZATIONS No Known Immunizations [...]
--- OUTSIDE RECORDS SUMMARY | 2018-10-08 14:31 | XMS REPORT ---
Author Author LISA SIMEON Organization [facility] Address [address] [place] [address] Care Team Providers Care Heading And Priming Operator Name Role Phone LISA SIMEON Unavailable PROBLEMS Type Condition ICD9-CM Code CBS26-MM Code Onset Dates Condition Status SNOMED Code Problem Eosinophilia D72.1 Active 887006078 Problem Other chronic pain G89.29 Active 95446295 Problem Low back pain M54.5 Active 625546965 Problem Damian''s esophagus without dysplasia K22.70 Active 948309063 Problem Mixed hyperlipidemia E78.2 Active 296761656 Problem Erectile dysfunction, unspecified erectile dysfunction type N52.9 Active 476443982 Problem Moderate episode of recurrent major depressive disorder F33.1 Active 410557631 Problem Anxiety, generalized F41.1 Active 18764835 Problem Paranoid ideation F22 Active 750526770 Problem Arthritis M19.90 Active 4045395 Problem Chronic fatigue R53.82 Active 95724002 ALLERGIES No Information ENCOUNTERS Encounter Location Date Diagnosis [place] [address] 00962- 8078 Jan, Other chronic pain G89.29 [place] [address] [place] [id number] [place] [address] 34952- 6100 Nov, Other chronic pain G89.29 [facility] [address] [place] [id number] [place] [address] 20869- 8389 Oct, Other chronic pain G89.29 [place] [address] 04295- 2778 Sep, Moderate episode of recurrent major depressive disorder F33.1 ; GERD with esophagitis K21.0 ; Erectile dysfunction, unspecified erectile dysfunction type N52.9 ; Other chronic pain G89.29 ; Damian''s esophagus without dysplasia K22.70 and Mixed hyperlipidemia E78.2 [place] [address] [place] [id number] [place] [address] 13902- 1642 Sep, Low back pain M54.5 [place] [address] [place] [id number] [place] [address] 42473- 2778 Aug, GERD with esophagitis K21.0 ; Reactive depression F32.9 ; Chronic fatigue R53.82 ; Arthritis M19.90 ; Other chronic pain G89.29 and Low back pain M54.5 [place] [address] 02601- 2489 Jul, Encounter to establish care with new doctor Z76.89 [place] [address] 84696- 7327 Jun, Other chronic pain G89.29 [place] [address] 50857- 8132 Jun, Other chronic pain G89.29 [place] [address] 54456- 8470 May, GERD with esophagitis K21.0 and Other chronic pain G89.29 [place] [address] 13901- 0514 Apr, Low back pain M54.5 [place] [address] [place] [id number] [place] [address] 90621- 6035 Apr, Reactive depression F32.9 [place] [address] 86690- 6768 Mar, Encounter to establish care with new doctor Z76.89 ; Weight loss, unintentional R63.4 ; Moderate episode of recurrent major depressive disorder F33.1 ; Chronic fatigue R53.82 ; Low back pain M54.5 ; Arthritis M19.90 ; Controlled substance agreement signed Z79.899 and High risk medication use Z79.899 [place] [address] 45627- 2196 Mar, Low back pain M54.5 [facility] [address] [place] [id number] [place] [address] 77379- 4419 Mar, Reactive depression F32.9 ; Paranoid ideation F22 and Anxiety, generalized F41.1 [facility] [address] [place] [id number] [place] [address] 56996- 1405 Mar, [facility] [address] [place] [id number] [place] [address] 03328- 8466 Feb, [facility] [address] [place] [id number] [place] [address] 25476- 5215 Feb, [facility] [address] 28507- 8557 Feb, Epigastric pain R10.13 ; Weight loss R63.4 and Eustachian tube dysfunction, left H69.82 [facility] [address] [place] [id number] [place] [address] 67712- 5329 Jan, Reactive depression F32.9 and Low back pain M54.5 [facility] [address] [place] [id number] [place] [address] 93761- 9000 14 Sep, 2016 Reactive depression F32.9 and Irritable bowel syndrome without diarrhea K58.9 [facility] [address] [place] [id number] [place] [address] 67248- 2712 Aug, [facility] [address] [place] [id number] [place] [address] 99030- 1486 May, [facility] [address] [place] [id number] [place] [address] 40044- 0929 May, [facility] [address] [place] [id number] [place] [address] 34536- 7918 Mar, [facility] [address] [place] [id number] [place] [address] 87565- 8614 Mar, Leukocytosis, unspecified type D72.829 [facility] [address] [place] [id number] [place] [address] 96689- 9798 Mar, Leukocytosis, unspecified type D72.829 [place] [address] [place] [id number] [place] [address] 20107- 7507 Feb, Weight loss R63.4 ; Syncope, unspecified syncope type R55 ; Low back pain M54.5 ; Other chronic pain G89.29 and Reactive depression F32.9 [place] [address] 46420- 4094 Jul, [facility] [address] 84439- 8464 May, Arthritis M19.90 [place] [address] 32103- 7277 Apr, Chronic pain 338.29 [place] [address] [place] [id number] [place] [address] 54572- 8827 Apr, Anxiety state, unspecified 300.00 [facility] [address] [place] [id number] [place] [address] 20079- 8065 Jan, Anxiety state, unspecified 300.00 [facility] [address] [place] [id number] [place] [address] 18279- 0370 Jan, Chronic pain 338.29 and Anxiety state, unspecified 300.00 [facility] [address] [place] [id number] [place] [address] 70255- 0120 Jan, [facility] [address] [place] [id number] [place] [address] 51645- 7020 Nov, [facility] [address] [place] [id number] [place] [address] 36307- 5502 Nov, [facility] [address] [place] [id number] [place] [address] 197121- 7066 Oct, [facility] [address] [id number] [place] [address] 54443- 5924 Oct, [facility] [address] [place] [address] [place] [address]- 8689 13 Oct, 2014 [facility] [place] [facility] [address] [id number] [place] [address]- 8582 Oct, [facility] [place] [facility] [address] [id number] [place] [address]- 3591 Sep, 2014 [facility] [place] [facility] [address] [id number] [place] [address]- 6375 Sep, 2014 [facility] [place] [facility] [address] [id number] [place] [address]- 3981 Sep, 2014 [facility] [place] [facility] [address] [id number] [place] [address]- 3710 Sep, 2014 [facility] [place] [facility] [address] [facility] [id number] [place] [address]- 9994 May, [facility] [place] [facility] [address] [id number] [place] [address]- 3532 May, [facility] [place] [facility] [address] [id number] [place] [address]- 7524 Apr, [facility] [place] [facility] [address] [id number] [place] [address]- 1521 Apr, [facility] [place] [facility] [address] [facility] [id number] [place] [address]- 5091 Jan, [facility] [place] [facility] [address] [id number] [place] [address]- 5471 Jan, [facility] [place] [facility] [address] [id number] [place] [address]- 0411 Jan, [facility] [place] [facility] [address] [id number] [place] [address]- 9465 Jan, [facility] [place] [facility] [address] [id number] [place] [address]- 0010 Jan, [facility] [place] [facility] [address] [id number] [place] [address]- 5740 December, [facility] [place] [facility] [address] [id number] [place] [address]- 6274 December, [facility] [place] [facility] [address] [id number] [place] [address]- 6757 Sep, [facility] [place] [facility] [address] [id number] [place] [address]- 7824 Sep, [facility] [place] [facility] [address] [id number] [place] [address]- 5333 Aug, [facility] [place] [facility] [address] [id number] [place] [address]- 6122 Aug, [facility] [place] [facility] [address] [id number] [place] [address]- 5080 Jun, [facility] [place] [facility] [address] [id number] [place] [address]- 8024 Jun, [facility] [place] [facility] [address] [id number] [place] [address]- 9756 May, [facility] [place] [facility] [address] [id number] [place] [address]- 7680 May, [facility] [place] [facility] [address] [id number] [place] [address]- 0870 May, [facility] [place] [facility] [address] [id number] [place] [address]- 2019 Feb, [facility] [place] [facility] [address] [id number] [place] [address]- 8711 Jan, [facility] [place] [facility] [address] [id number] [place] [address]- 8811 Jan, [facility] [place] [facility] [address] [id number] [place] [address]- 7038 Jan, [facility] [place] [facility] [address] [id number] [place] [address]- 8179 Nov, [facility] [place] [facility] [address] [id number] [place] [address]- 1063 Sep, [facility] [place] [facility] [address] [id number] [place] [address]- 7732 Aug, [facility] [place] [facility] [address] [id number] [place] [address]- 8536 Jul, [facility] [place] [facility] [address] [id number] [place] [address]- 3836 Jul, [facility] [place] [facility] [address] [id number] [place] [address]- 2346 Jul, [facility] [place] [facility] [address] [id number] [place] [address]- 4616 Jul, [facility] [place] [facility] [address] [id number] [place] [address] Jul, [facility] [place] [facility] [address] [id number] [place] [address] Jul, [facility] [place] [facility] [address] [id number] [place] [address] Jun, [facility] [place] [facility] [address] [id number] [place] [address] 2017 Jun, [facility] [place] [facility] [address] [id number] [place] [address] Jun, [facility] [place] [facility] [address] [id number] [place] [address] Jun, [facility] [place] [facility] [address] [id number] [place] [address] Feb, [facility] [place] [facility] [address] [id number] [place] [address] Jan, [facility] [place] [facility] [address] [id number] [place] [address] Jan, [facility] [place] [facility] [address] [id number] [place] [address] Feb, [facility] [address] [facility] [id number] [place] [address] 16 Jan, 2011 IMMUNIZATIONS No Known Immunizations SOCIAL HISTORY Never Assessed REASON FOR VISIT Controlled Med Refill PLAN OF CARE VITAL SIGNS MEDICATIONS Medication Instructions Dosage Frequency Start Date End Date Duration Status Tramadol HCl 50 mg Orally 2 times a day 1 tablet as needed 12h Nov, 28 days Active RESULTS No Results PROCEDURES [...]
--- OUTSIDE RECORDS SUMMARY | 2018-10-08 14:31 | XMS REPORT ---
Author Author LISA SIMEON Organization [facility] Address [address] [place] [address] Care Team Providers Care Pharmacy Laboratory Technician Name Role Phone LISA SIMEON Unavailable PROBLEMS Type Condition ICD9-CM Code LJB18-PH Code Onset Dates Condition Status SNOMED Code Problem Eosinophilia D72.1 Active 869128726 Problem Other chronic pain G89.29 Active 23427567 Problem Low back pain M54.5 Active 622401918 Problem Damian''s esophagus without dysplasia K22.70 Active 809626116 Problem Mixed hyperlipidemia E78.2 Active 234829338 Problem Erectile dysfunction, unspecified erectile dysfunction type N52.9 Active 356919111 Problem Moderate episode of recurrent major depressive disorder F33.1 Active 807347935 Problem Anxiety, generalized F41.1 Active 49746322 Problem Paranoid ideation F22 Active 373183940 Problem Arthritis M19.90 Active 5563684 Problem Chronic fatigue R53.82 Active 03576793 ALLERGIES No Known Allergies ENCOUNTERS Encounter Location Date Diagnosis [place] [id number] [address] Nov, Other chronic pain G89.29 [facility] [address] [place] [id number] [place] [address]- 2682 Oct, Other chronic pain G89.29 [facility] [address] [address] Sep, Moderate episode of recurrent major depressive disorder F33.1 ; GERD with esophagitis K21.0 ; Erectile dysfunction, unspecified erectile dysfunction type N52.9 ; Other chronic pain G89.29 ; Damian''s esophagus without dysplasia K22.70 and Mixed hyperlipidemia E78.2 [facility] [address] [place] [place] [id number] [place] [address] 68698- 9776 Sep, Low back pain M54.5 [place] [address] [place] [id number] [place] [address]85- 8369 Aug, GERD with esophagitis K21.0 ; Reactive depression F32.9 ; Chronic fatigue R53.82 ; Arthritis M19.90 ; Other chronic pain G89.29 and Low back pain M54.5 [place] [address] [place] [id number] [place] [address] 34681- 9958 Jul, Encounter to establish care with new doctor Z76.89 [place] [address] [address] Jun, Other chronic pain G89.29 [place] [address] [address] Jun, Other chronic pain G89.29 [place] [address] [address]- [address] May, GERD with esophagitis K21.0 and Other chronic pain G89.29 [place] [address] [id number] [place] [address]48- 2019 Apr, Low back pain M54.5 [place] [address] [address]- [address] Apr, Reactive depression F32.9 [place] [address] [place] [id number] [place] [address] 37886- 5394 Mar, Encounter to establish care with new doctor Z76.89 ; Weight loss, unintentional R63.4 ; Moderate episode of recurrent major depressive disorder F33.1 ; Chronic fatigue R53.82 ; Low back pain M54.5 ; Arthritis M19.90 ; Controlled substance agreement signed Z79.899 and High risk medication use Z79.899 [place] [address] [place] [id number] [place] [address] 86866- 9186 Mar, Low back pain M54.5 [place] [address] [address]- 83[address] Mar, Reactive depression F32.9 ; Paranoid ideation F22 and Anxiety, generalized F41.1 [facility] [address] [place] [id number] [place] [address] 46360- 8748 Mar, [facility] [address] [place] [id number] [place] [address] 01763- 1764 Feb, [facility] [address] [place] [id number] [place] [address] 36658- 6776 Feb, [facility] [address] [place] [id number] [place] [address] 95157- 1608 Feb, Epigastric pain R10.13 ; Weight loss R63.4 and Eustachian tube dysfunction, left H69.82 [place] [address] [place] [id number] [place] [address] 11403- 2802 Jan, Reactive depression F32.9 and Low back pain M54.5 [place] [address] [place] [id number] [place] [address] 48397- 6684 14 Sep, 2016 Reactive depression F32.9 and Irritable bowel syndrome without diarrhea K58.9 [place] [address] [place] [id number] [place] [address] 79195- 8009 Aug, [facility] [address] [place] [id number] [place] [address] 25004- 5898 May, [facility] [address] [place] [id number] [place] [address] 17805- 1888 May, [facility] [address] [place] [id number] [place] [address] 14880- 2264 Mar, [facility] [address] [place] [id number] [place] [address] 70528- 7574 Mar, Leukocytosis, unspecified type D72.829 [facility] [id number] [place] [address] 73418- 3663 Mar, Leukocytosis, unspecified type D72.829 [place] [address] [place] [id number] [place] [address] Feb, Weight loss R63.4 ; Syncope, unspecified syncope type R55 ; Low back pain M54.5 ; Other chronic pain G89.29 and Reactive depression F32.9 [facility] [address] [place] [id number] [place] [address] 51697- 5145 Jul, [facility] [address] 84094- 5752 May, Arthritis M19.90 [facility] [address] 51419- 6[address] Apr, Chronic pain 338.29 [facility] [address] 47464- 7720 Apr, Anxiety state, unspecified 300.00 [facility] [address] [place] [id number] [place] [address] 41924- 4789 17 Jan, 2015 Anxiety state, unspecified 300.00 [facility] [address] [id number] [place] [address]- [address] 15 Jan, 2015 Chronic pain 338.29 and Anxiety state, unspecified 300.00 [facility] [address] [place] [id number] [place] [address] 98371- 1070 Jan, [facility] [address] [place] [id number] [place] [address] 86662- 1034 14 Nov, 2014 [facility] [address] [id number] [place] [address] 68423- 9570 Nov, [facility] [address] [place] [id number] [place] [address] 81177- 3584 Oct, [facility] [address] [place] [id number] [place] [address] 76181- 1403 Oct, [facility] [address] [place] [id number] [place] [address] 45040- 4515 Oct, [facility] [address] [place] [id number] [place] [address] 49808- 8433 Oct, [facility] [place] [facility] [address] [id number] [place] [address]- 4955 Sep, [facility] [place] [facility] [address] [id number] [place] [address]- 3964 Sep, 2014 [facility] [place] [facility] [address] [id number] [place] [address]- 6190 Sep, [facility] [place] [facility] [address] [id number] [place] [address]- 0828 Sep, [facility] [place] [facility] [address] [id number] [place] [address]- 8379 May, [facility] [place] [facility] [address] [id number] [place] [address]- 9259 May, [facility] [place] [facility] [address] [id number] [place] [address]- 7004 Apr, [facility] [place] [facility] [address] [id number] [place] [address]- 0231 Apr, [facility] [place] [facility] [address] [id number] [place] [address]- 3089 Jan, [facility] [place] [facility] [address] [facility] [id number] [place] [address]- 0266 Jan, [facility] [place] [facility] [address] [id number] [place] [address]- 1294 Jan, [facility] [place] [facility] [address] [id number] [place] [address]- 3241 Jan, [facility] [place] [facility] [address] [id number] [place] [address]- 9886 Jan, [facility] [place] [facility] [address] [id number] [place] [address]- 5805 December, [facility] [place] [facility] [address] [id number] [place] [address]- 6931 December, [facility] [place] [facility] [address] [id number] [place] [address]- 2289 Sep, [facility] [place] [facility] [address] [id number] [place] [address]- 1174 Sep, [facility] [place] [facility] [address] [id number] [place] [address]- 7627 Aug, [facility] [place] [facility] [address] [id number] [place] [address]- 6432 Aug, [facility] [place] [facility] [address] [id number] [place] [address]- 0907 Jun, [facility] [place] [facility] [address] [id number] [place] [address]- 1392 Jun, [facility] [place] [facility] [address] [id number] [place] [address]- 9725 May, [facility] [place] [facility] [address] [id number] [place] [address]- 9996 May, [facility] [place] [facility] [address] [id number] [place] [address]- 3531 May, [facility] [place] [facility] [address] [id number] [place] [address]- 5114 Feb, [facility] [place] [facility] [address] [id number] [place] [address]- 8958 Jan, [facility] [place] [facility] [address] [id number], [place] [address]- 0465 Jan, [facility] [place] [facility] [address] [id number] [place] [address]- 3162 Jan, [facility] [place] [facility] [address] [id number] [place] [address]- 3426 Nov, [facility] [place] [facility] [address] [id number] [place] [address]- 9003 Sep, [facility] [place] [facility] [address] [id number], [place] [address]- 2[address] Aug, [facility] [address] [facility] [id number] [place] [address]- 2826 Jul, [facility] [address] [facility] [id number] [place] [address]- 7696 Jul, [facility] [address] [facility] [id number] [place] [address]- 7016 Jul, [facility] [address] [facility] [id number] [place] [address]- 8404 Jul, [facility] [address] [facility] [id number] [place] [address]- 2895 Jul, [facility] [address] [facility] [id number] [place] [address]- 3801 Jul, [facility] [address] [place] [address]- 6795 Jun, [facility] [address] [facility] [id number], [place] [address]- 0687 Jun, [facility] [address] [facility] [id number], [place] [address]- 4598 Jun, [facility] [address] [facility] [id number], [place] [address]- 1507 Jun, [facility] [address] [facility] [id number], [place] [address]- 1587 Feb, [facility] [address] [facility] [id number], [place] [address]- 3678 Jan, [facility] [address] [facility] [id number][place] [address] Jan, [facility] [address] [facility] [id number][place] [address] Feb, [facility] [address] [facility] [id number], [place] [address]- 63[address] 16 Jan, 2011 IMMUNIZATIONS No Known Immunizations SOCIAL HISTORY Never Assessed REASON FOR VISIT Pain management (chronic)---DBennettSAADIA PLAN OF CARE Activity Details Follow Up 3 Months Reason:chm/dm VITAL SIGNS Height 69 in 2017-06-15 Weight 136 lbs 2017-06-15 Temperature 98.0 degrees Fahrenheit 2017-06-15 Heart Rate 70 bpm 2017-06-15 Respiratory Rate 20 2017-06-15 BMI 20.08 kg/m2 2017-06-15 Blood pressure systolic 96 mmHg 2017-06-15 Blood pressure diastolic 60 mmHg 2017-06-15 MEDICATIONS Medication Instructions Dosage Frequency Start Date End Date Duration Status Quetiapine Fumarate 100 MG Take 1 tablet by mouth at bedtime. 30 Active Tramadol HCl 50 mg Orally 2 times a day 1 tablet as needed 12h Active Reglan 10 mg Orally 4 times a day, ac & HS 1 tablet Feb, 30 days Active Vitamin B Complex Active Zoloft 100 mg Orally Once a day 1 tablet 24h 14 Sep, 2016 90 days Active Nexium 24HR 20 MG Orally Once a day 1 capsule 24h Active RESULTS No Results PROCEDURES No Known [...]
--- OUTSIDE RECORDS SUMMARY | 2018-10-08 14:32 | XMS REPORT ---
Author GORDON Benoit [facility] eClinicalWorks Address Unknown Phone Unavailable Care Team Providers Care Back Seam Stitcher Name Role Phone GORDON SALMON CP Unavailable Allergies, Adverse Reactions, Alerts Substance Reaction Event Type N.K.D.A. Info Not Available Non Drug Allergy Problems Problem Type Condition Code Onset Dates Condition Status Problem Other malaise and fatigue 780.79 Active Problem Other abnormal glucose 790.29 Active Problem Chronic pain 338.29 Active Problem Impotence of organic origin 607.84 Active Assessment Chronic pain 338.29 Active Medications Medication Code System Code Instructions Start Date End Date Status Dosage Zoloft [facility] [address]-70 50 MG Orally Once a day February 10, 2015 2 tablets Tramadol HCl [facility] [address]-24 50 MG Orally every 6 hrs 1 tablet as needed Vistaril [facility] [address]-74 25 MG Orally 2 times a day 1 capsule as needed Trazodone HCl [facility] [address]-21 100 MG Orally Once a day May 17, 2015 1 tablet at bedtime Procedures Procedure Coding System Code Date Office Visit, Est Pt., Level 2 CPT-4 89059 May 18, 2015 Vital Signs Date/Time: May 18, 2015 Temperature 98.0 F Weight 155 lbs Height 69 in BMI 22.89 Index Blood Pressure Diastolic 62 mmHg Blood Pressure Systolic 110 mmHg Cardiac Monitoring Heart Rate 62 bpm Results No Known Results Summary Purpose eClinicalWorks Submission
--- OUTSIDE RECORDS SUMMARY | 2018-10-08 14:32 | XMS REPORT ---
Author Author GORDON SALMON [facility] eClinicalWorks Address Unknown Phone Unavailable Care Team Providers Care Harmonica Maker Name Role Phone GORDON SALMON CP Unavailable Allergies, Adverse Reactions, Alerts Substance Reaction Event Type N.K.D.A. Info Not Available Non Drug Allergy Problems Problem Type Condition Code Onset Dates Condition Status Assessment Reactive depression F32.9 Active Problem Other chronic pain G89.29 Active Problem Reactive depression F32.9 Active Problem Low back pain M54.5 Active Assessment Low back pain M54.5 Active Assessment Other chronic pain G89.29 Active Assessment Weight loss R63.4 Active Assessment Syncope, unspecified syncope type R55 Active Medications Medication Code System Code Instructions Start Date End Date Status Dosage Tramadol HCl [facility] [address]-49 50 MG Orally every 6 hrs 1 tablet as needed Procedures Procedure Coding System Code Date ASSAY THYROID STIM HORMONE CPT-4 62104 March 23, 2016 COMPLETE CBC W/AUTO DIFF WBC CPT-4 56329 March 23, 2016 COMPREHEN METABOLIC PANEL CPT-4 79887 March 23, 2016 Office Visit, Est Pt., Level 4 CPT-4 85287 March 23, 2016 VENIPUNCT, ROUTINE* CPT-4 37399 March 23, 2016 Vital Signs Date/Time: March 23, 2016 Cardiac Monitoring Heart Rate 80 bpm Weight 141.1 lbs Height 69 in BMI 20.83 Index Blood Pressure Diastolic 60 mmHg Blood Pressure Systolic 112 mmHg Results No Known Results Summary Purpose eClinicalWorks Submission
--- OUTSIDE RECORDS SUMMARY | 2018-10-08 14:32 | XMS REPORT ---
Author Author GORDON SALMON [facility] Address [address] [place] [address] Care Team Providers Care It Architect Name Role Phone GORDON SALMON Unavailable PROBLEMS Type Condition ICD9-CM Code QFY27-OY Code Onset Dates Condition Status SNOMED Code Problem Reactive depression F32.9 Active 37733099 Problem Low back pain M54.5 Active 085720469 Problem Other chronic pain G89.29 Active 63411679 Problem Arthritis M19.90 Active 9931722 Problem Chronic fatigue R53.82 Active 14313425 Problem Paranoid ideation F22 Active 986380561 Problem Irritable bowel syndrome without diarrhea K58.9 Active 93406560 Problem Moderate episode of recurrent major depressive disorder F33.1 Active 378674118 Problem Anxiety, generalized F41.1 Active 70800511 ALLERGIES No Known Allergies SOCIAL HISTORY Never Assessed PLAN OF CARE Activity Details Follow Up 2 Months Reason: VITAL SIGNS Height 69 in 2016-10-10 Weight 143.0 lbs 2016-10-10 Temperature 98.2 degrees Fahrenheit 2016-10-10 Heart Rate 84 bpm 2016-10-10 Respiratory Rate 20 2016-10-10 BMI 21.12 kg/m2 2016-10-10 Blood pressure systolic 116 mmHg 2016-10-10 Blood pressure diastolic 68 mmHg 2016-10-10 MEDICATIONS Medication Instructions Dosage Frequency Start Date End Date Duration Status Tramadol HCl 50 MG Orally every 6 hrs 1 tablet as needed 6h Active Zoloft 100 mg Orally Once a day 1 tablet 24h Sep, 180 days Active Librax 5-2.5 MG Orally Twice a day 1 capsule before meals 12h Sep, December, 30 day(s) Active RESULTS No Results PROCEDURES No Known procedures IMMUNIZATIONS No Known Immunizations MEDICAL (GENERAL) HISTORY Type Description Date Medical History cardiovascular disorder-murmur as a child Medical History migraine headaches Medical History epilepsy and recurrent seizures as a child Medical History urologic disorder-hx of kidney infections Medical History endocrine disorder-hypoglycemia Surgical History muscle biopsy for trichinosis?? Surgical History abdominal surgery: bowel- unknown cause Hospitalization History Hospitalization for surgery only
--- OUTSIDE RECORDS SUMMARY | 2018-10-08 14:32 | XMS REPORT ---
Author Author GORDON SALMON Organization [employer] Address Unknown Phone Unavailable Care Team Providers Care Battery Loader Name Role Phone GORDON SALMON CP Unavailable Allergies No Known Allergies Problems Problem Type Condition Code Onset Dates Condition Status Problem Other chronic pain G89.29 Active Problem Reactive depression F32.9 Active Problem Low back pain M54.5 Active Assessment Leukocytosis, unspecified type D72.829 Active Medications No Known Medications Results No Known Results Summary Purpose eClinicalWorks Submission
--- OUTSIDE RECORDS SUMMARY | 2018-10-08 14:32 | XMS REPORT ---
Author Author LISA SIMEON Organization [facility] Address [address] [place] [address] Care Team Providers Care Foil Wrapper Name Role Phone LISA SIMEON Unavailable PROBLEMS Type Condition ICD9-CM Code KXE33-SZ Code Onset Dates Condition Status SNOMED Code Problem Eosinophilia D72.1 Active 360280153 Problem Other chronic pain G89.29 Active 29382801 Problem Low back pain M54.5 Active 811470543 Problem Damian''s esophagus without dysplasia K22.70 Active 237601705 Problem Mixed hyperlipidemia E78.2 Active 019340419 Problem Erectile dysfunction, unspecified erectile dysfunction type N52.9 Active 649347200 Problem Moderate episode of recurrent major depressive disorder F33.1 Active 723503618 Problem Anxiety, generalized F41.1 Active 64576039 Problem Paranoid ideation F22 Active 692794413 Problem Arthritis M19.90 Active 0193462 Problem Chronic fatigue R53.82 Active 71601745 ALLERGIES No Information ENCOUNTERS Encounter Location Date Diagnosis [place] [id number] [place] [address] 51978- 2131 Jan, [place] [id number] [place] [address] 23600- 9776 Nov, Other chronic pain G89.29 [place] [id number] 18[address]- 7140 Oct, Other chronic pain G89.29 [place] [address] 89202- 3040 Sep, Moderate episode of recurrent major depressive disorder F33.1 ; GERD with esophagitis K21.0 ; Erectile dysfunction, unspecified erectile dysfunction type N52.9 ; Other chronic pain G89.29 ; Damian''s esophagus without dysplasia K22.70 and Mixed hyperlipidemia E78.2 [place] [id number] [place] [address] 63285- 9549 Sep, Low back pain M54.5 [place] [address] 54691- 6866 Aug, GERD with esophagitis K21.0 ; Reactive depression F32.9 ; Chronic fatigue R53.82 ; Arthritis M19.90 ; Other chronic pain G89.29 and Low back pain M54.5 [place] [address] 01330- 9029 Jul, Encounter to establish care with new doctor Z76.89 [place] [address] 59824- 3157 Jun, Other chronic pain G89.29 [place] [address] 04661- 2901 Jun, Other chronic pain G89.29 [place] [address] 61340- 1838 May, GERD with esophagitis K21.0 and Other chronic pain G89.29 [place] [address] 10775- 3624 Apr, Low back pain M54.5 [place] [id number] [place] [address] 88637- 2679 Apr, Reactive depression F32.9 [place] [id number] [place] [address] 72069- 0071 Mar, Encounter to establish care with new doctor Z76.89 ; Weight loss, unintentional R63.4 ; Moderate episode of recurrent major depressive disorder F33.1 ; Chronic fatigue R53.82 ; Low back pain M54.5 ; Arthritis M19.90 ; Controlled substance agreement signed Z79.899 and High risk medication use Z79.899 [place] [id number] [place] [address] 02226- 4397 Mar, Low back pain M54.5 [facility] [id number] [place] [address] 49118- 1493 Mar, Reactive depression F32.9 ; Paranoid ideation F22 and Anxiety, generalized F41.1 [facility] [id number] [place] [address] 72433- 3386 Mar, [facility] [id number] [place] [address] 57433- 3219 Feb, [facility] [id number] [place] [address] 26674- 6152 Feb, [place] [address] 58778- 1186 Feb, Epigastric pain R10.13 ; Weight loss R63.4 and Eustachian tube dysfunction, left H69.82 [place] [id number] [place] [address] 70913- 2870 Jan, Reactive depression F32.9 and Low back pain M54.5 [facility] [id number] [place] [address] 86411- 5267 14 Sep, 2016 Reactive depression F32.9 and Irritable bowel syndrome without diarrhea K58.9 [facility] [id number] [place] [address] 89907- 0725 Aug, [facility] [id number] [place] [address] 98067- 9456 May, [facility] [id number] [place] [address] 84571- 3230 May, [facility] [id number] [place] [address] 93106- 0394 Mar, [facility] [id number] [place] [address] 30548- 9298 Mar, Leukocytosis, unspecified type D72.829 [facility] [id number] [place] [address] 62759- 0325 Mar, Leukocytosis, unspecified type D72.829 [facility] [id number] [place] [address] 98681- 6632 Feb, Weight loss R63.4 ; Syncope, unspecified syncope type R55 ; Low back pain M54.5 ; Other chronic pain G89.29 and Reactive depression F32.9 [place] [address] 54248- 4066 Jul, [facility] [address] 56691- 2574 May, Arthritis M19.90 [place] [address] 67856- 0899 Apr, Chronic pain 338.29 [place] [address] 74965- 9206 Apr, Anxiety state, unspecified 300.00 [facility] [address] 50013- 4143 Jan, Anxiety state, unspecified 300.00 [facility] [id number] [place] [address] 48964- 6162 Jan, Chronic pain 338.29 and Anxiety state, unspecified 300.00 [facility] [id number] [place] [address] 55348- 7840 Jan, [facility] [id number] [place] [address] 39615- 0619 14 Nov, 2014 [facility] [id number] [place] [address] 53580- 5643 Nov, [facility] [address] 35150- 4386 Oct, [facility] [id number] [place] [address] 81291- 9679 Oct, [facility] [address] 55551- 5363 Oct, [facility] [place] [facility] [address] [id number] [place] [address]- 2613 Oct, [facility] [place] [facility] [address] [id number] [place] [address]- 6287 Sep, 2014 [facility] [place] [facility] [address] [id number] [place] [address]- 9815 Sep, [facility] [place] [facility] [address] [id number] [place] [address]- 6648 Sep, [facility] [place] [facility] [address] [id number] [place] [address]- 6144 Sep, [facility] [place] [facility] [address] [id number] [place] [address]- 5751 May, [facility] [place] [facility] [address] [id number] [place] [address]- 5210 May, [facility] [place] [facility] [address] [id number] [place] [address]- 6988 Apr, [facility] [place] [facility] [address] [id number] [place] [address]- 0939 Apr, [facility] [place] [facility] [address] [facility] [id number] [place] [address]- 4438 Jan, [facility] [place] [facility] [address] [id number] [place] [address]- 3609 Jan, [facility] [place] [facility] [address] [id number] [place] [address]- 0673 Jan, [facility] [place] [facility] [address] [id number] [place] [address]- 5877 Jan, [facility] [place] [facility] [address] [id number] [place] [address]- 2296 Jan, [facility] [place] [facility] [address] [facility] [id number] [place] [address]- 2776 December, [facility] [place] [facility] [address] [id number] [place] [address]- 5726 December, [facility] [place] [facility] [address] [id number] [place] [address]- 1143 Sep, [facility] [place] [facility] [address] [id number] [place] [address]- 0419 Sep, [facility] [place] [facility] [address] [id number] [place] [address]- 3418 Aug, [facility] [place] [facility] [address] [id number] [place] [address]- 4239 Aug, [facility] [place] [facility] [address] [id number] [place] [address]- 9843 Jun, [facility] [place] [facility] [address] [id number] [place] [address]- 5438 Jun, [facility] [place] [facility] [address] [id number] [place] [address]- 1631 May, [facility] [place] [facility] [address] [id number] [place] [address]- 0594 May, [facility] [place] [facility] [address] [id number] [place] [address]- 7048 May, [facility] [place] [facility] [address] [id number] [place] [address]- 5100 Feb, [facility] [place] [facility] [address] [id number] [place] [address]- 6970 Jan, [facility] [place] [facility] [address] [id number] [place] [address]- 6297 Jan, [facility] [place] [facility] [address] [id number] [place] [address]- 9401 Jan, [facility] [place] [facility] [address] [id number] [place] [address]- 2849 Nov, [facility] [place] [facility] [address] [id number] [place] [address]- 1240 Sep, [facility] [place] [facility] [address] [id number] [place] [address]- 5937 Aug, [facility] [place] [facility] [address] [id number] [place] [address]- 3506 Jul, [facility] [place] [facility] [address] [id number] [place] [address]- 2786 Jul, [facility] [place] [facility] [address] [id number] [place] [address]- 4456 Jul, [facility] [place] [facility] [address] [id number] [place] [address]- 1811 Jul, [facility] [place] [facility] [address] [id number] [place] [address]- 0517 Jul, [facility] [place] [facility] [address] [id number] [place] [address]- 9149 Jul, [facility] [place] [facility] [address] [id number] [place] [address]- 3167 Jun, [facility] [place] [facility] [address] [id number] [place] [address]- 1066 Jun, [facility] [place] [facility] [address] [id number] [place] [address]- 2515 Jun, [facility] [place] [facility] [address] [id number] [place] [address]- 7820 Jun, [facility] [place] [facility] [address] [id number] [place] [address]- 9476 Feb, [facility] [place] [facility] [address] [id number] [place] [address]- 9276 Jan, [facility] [place] [facility] [address] [id number] [place] [address]- 7643 Jan, [facility] [place] [facility] [address] [id number] [place] [address]- 9087 Feb, [facility] [place] [facility] [address] [facility] [id number] [place] [address]- 5026 16 Jan, 2011 IMMUNIZATIONS No Known Immunizations SOCIAL HISTORY Never Assessed REASON FOR VISIT Repository Medication PLAN OF CARE VITAL SIGNS MEDICATIONS Medication Instructions Dosage Frequency Start Date End Date Duration Status Zoloft 100 mg Orally Once a day 1 tablet 24h Sep, 90 days Active RESULTS No Results PROCEDURES [...]
--- OUTSIDE RECORDS SUMMARY | 2018-10-08 14:32 | XMS REPORT ---
Author GORDON Benoit Organization [employer] Address Unknown Phone Unavailable Care Team Providers Care Scalder Name Role Phone GORDON SALMON CP Unavailable Allergies No Known Allergies Problems Problem Type Condition Code Onset Dates Condition Status Problem Other chronic pain G89.29 Active Problem Reactive depression F32.9 Active Problem Low back pain M54.5 Active Medications No Known Medications Results No Known Results Summary Purpose [employer] Submission
--- OUTSIDE RECORDS SUMMARY | 2018-10-08 14:32 | XMS REPORT ---
Author GORDON Benoit Organization [employer] Address Unknown Phone Unavailable Care Team Providers Care Hydraulic Technician Name Role Phone GORDON SALMON CP Unavailable Allergies No Known Allergies Problems Problem Type Condition Code Onset Dates Condition Status Problem Other chronic pain G89.29 Active Problem Reactive depression F32.9 Active Problem Low back pain M54.5 Active Medications No Known Medications Results No Known Results Summary Purpose [employer] Submission
--- OUTSIDE RECORDS SUMMARY | 2018-10-08 14:32 | XMS REPORT ---
Author Author GORDON SALMON [facility] [employer] Address Unknown Phone Unavailable Care Team Providers Care Sales Representative Adding Machines Name Role Phone GORDON SALMON CP Unavailable Allergies No Known Allergies Problems Problem Type Condition Code Onset Dates Condition Status Problem Other chronic pain G89.29 Active Problem Reactive depression F32.9 Active Problem Low back pain M54.5 Active Assessment Leukocytosis, unspecified type D72.829 Active Medications No Known Medications Procedures Procedure Coding System Code Date C-REACTIVE PROTEIN CPT-4 93648 Apr 06, 2016 VENIPUNCT, ROUTINE* CPT-4 13325 Apr 06, 2016 COMPLETE CBC W/AUTO DIFF WBC CPT-4 23830 Apr 06, 2016 Results No Known Results Summary Purpose [employer] Submission
--- OUTSIDE RECORDS SUMMARY | 2018-10-08 14:32 | XMS REPORT ---
Author Author LISA SIMEON Organization [facility] Address [address] [place] [address] Care Team Providers Care Solo Truck Driver Name Role Phone LISA SIMEON Unavailable PROBLEMS Type Condition ICD9-CM Code [id number] Code Onset Dates Condition Status SNOMED Code Problem Eosinophilia D72.1 Active 954001725 Problem Other chronic pain G89.29 Active 99123143 Problem Low back pain M54.5 Active 823780996 Problem Damian''s esophagus without dysplasia K22.70 Active 062481321 Problem Mixed hyperlipidemia E78.2 Active 312022526 Problem Erectile dysfunction, unspecified erectile dysfunction type N52.9 Active 859476847 Problem Moderate episode of recurrent major depressive disorder F33.1 Active 497980333 Problem Anxiety, generalized F41.1 Active 95306447 Problem Paranoid ideation F22 Active 230205021 Problem Arthritis M19.90 Active 9453207 Problem Chronic fatigue R53.82 Active 61686123 ALLERGIES No Known Allergies ENCOUNTERS Encounter Location Date Diagnosis [place] [id number] [place] [address] 58946- 2568 Oct, Other chronic pain G89.29 [facility] [id number] [place] [address] 81272- 0215 Sep, Moderate episode of recurrent major depressive disorder F33.1 ; GERD with esophagitis K21.0 ; Erectile dysfunction, unspecified erectile dysfunction type N52.9 ; Other chronic pain G89.29 ; Damian''s esophagus without dysplasia K22.70 and Mixed hyperlipidemia E78.2 [facility] [id number] [place] [address] 43486- 4599 Sep, Low back pain M54.5 [facility] [id number] [place] [address] 16357- 0658 Aug, GERD with esophagitis K21.0 ; Reactive depression F32.9 ; Chronic fatigue R53.82 ; Arthritis M19.90 ; Other chronic pain G89.29 and Low back pain M54.5 [place] [id number] [place] [address] 12111- 6163 Jul, Encounter to establish care with new doctor Z76.89 [place] [address] 64999- 1605 Jun, Other chronic pain G89.29 [place] [address] 29812- 5866 Jun, Other chronic pain G89.29 [place] [address] 03624- 6357 May, GERD with esophagitis K21.0 and Other chronic pain G89.29 [place] [address] 64515- 2647 Apr, Low back pain M54.5 [place] [id number] [place] [address] 08505- 5801 Apr, Reactive depression F32.9 [place] [address] 83074- 2161 Mar, Encounter to establish care with new doctor Z76.89 ; Weight loss, unintentional R63.4 ; Moderate episode of recurrent major depressive disorder F33.1 ; Chronic fatigue R53.82 ; Low back pain M54.5 ; Arthritis M19.90 ; Controlled substance agreement signed Z79.899 and High risk medication use Z79.899 [place] [id number] [place] [address] 54137- 9247 Mar, Low back pain M54.5 [place] [address] 18814- 6299 Mar, Reactive depression F32.9 ; Paranoid ideation F22 and Anxiety, generalized F41.1 [place] [address] [place] [address]- 2071 Mar, [facility] [id number] [place] [address] 53279- 1615 Feb, [facility] [id number] [place] [address] 77979- 4600 Feb, [facility] [id number] [place] [address] 18994- 9610 Feb, Epigastric pain R10.13 ; Weight loss R63.4 and Eustachian tube dysfunction, left H69.82 [facility] [id number] [place] [address] 20961- 5616 Jan, Reactive depression F32.9 and Low back pain M54.5 [place] [id number] [place] [address] 93687- 4170 Sep, Reactive depression F32.9 and Irritable bowel syndrome without diarrhea K58.9 [facility] [id number] [place] [address] 57012- 5088 Aug, [facility] [id number] [place] [address] 34524- 1884 May, [facility] [id number] [place] [address] 17808- 7471 May, [facility] [address] [place] [address] 31121- 2217 Mar, [facility] [id number] [place] [address] 09531- 4940 Mar, Leukocytosis, unspecified type D72.829 [facility] [id number] [place] [address] 86631- 9300 Mar, Leukocytosis, unspecified type D72.829 [facility] [address] [place] [address] 92037- 3824 Feb, Weight loss R63.4 ; Syncope, unspecified syncope type R55 ; Low back pain M54.5 ; Other chronic pain G89.29 and Reactive depression F32.9 [facility] [id number] [place] [address] 24024- 1549 Jul, [facility] [id number] [place] [address] 70925- 3598 May, Arthritis M19.90 [facility] [id number] [place] [address] 81499- 4414 Apr, Chronic pain 338.29 [facility] [id number] [place] [address] 17654 2545 Apr, Anxiety state, unspecified 300.00 [facility] [id number] [place] [address] 75594- 5438 17 Jan, 2015 Anxiety state, unspecified 300.00 [facility] [id number] [place] [address] 57739- 4645 Jan, Chronic pain 338.29 and Anxiety state, unspecified 300.00 [facility] [id number] [place] [address] 84754- 4051 12 Jan, 2015 [facility] [id number] [place] [address] 18281- 0989 14 Nov, 2014 [facility] [address] [place] [address] 64764- 0298 Nov, [facility] [id number] [place] [address] 67703- 1072 Oct, [facility] [id number] [place] [address] 12560- 2886 25 Oct, 2014 [facility] [id number] [place] [address] 65765- 4340 Oct, [facility] [address] [place] [address] 60410- 7691 13 Oct, 2014 [facility] [id number] [place] [address] 77572- 5919 Sep, [facility] [place] [facility] [address] [id number] [place] [address]- 2681 Sep, [facility] [place] [facility] [address] [id number] [place] [address]- 9528 Sep, [facility] [place] [facility] [address] [facility] [id number] [place] [address]- 6944 Sep, [facility] [place] [facility] [address] [id number] [place] [address]- 5903 May, [facility] [place] [facility] [address] [id number] [place] [address]- 5256 May, [facility] [place] [facility] [address] [id number] [place] [address]- 4985 Apr, [facility] [place] [facility] [address] [id number] [place] [address]- 0550 Apr, [facility] [place] [facility] [address] [id number] [place] [address]- 9915 Jan, [facility] [place] [facility] [address] [id number] [place] [address]- 9216 Jan, [facility] [place] [facility] [address] [facility] [id number] [place] [address]- 5955 Jan, [facility] [place] [facility] [address] [id number], [place] [address]- 7284 Jan, [facility] [place] [facility] [address] [id number], [place] [address]- 6699 Jan, [facility] [place] [facility] [address] [id number] [place] [address]- 4540 December, [facility] [place] [facility] [address] [facility] [id number] [place] [address]- 7253 December, [facility] [place] [facility] [address] [facility] [id number] [place] [address]- 6772 Sep, [facility] [place] [facility] [address] [id number] [place] [address]- 2546 Sep, [facility] [address] [id number] [place] [address]- 0696 Aug, [facility] [place] [facility] [address] [id number] [place] [address]- 2546 Aug, [facility] [place] [facility] [address] [id number] [place] [address]- 2546 Jun, [facility] [place] [facility] [address] [id number] [place] [address]- 2546 Jun, [facility] [place] [facility] [address] [id number] [place] [address]- 3206 May, [facility] [place] [facility] [address] [id number] [place] [address]- 2546 May, [facility] [place] [facility] [address] [id number] [place] [address]- 2546 May, [facility] [place] [facility] [address] [id number] [place] [address]- 1902 Feb, [facility] [place] [facility] [address] [id number] [place] [address]- 4896 Jan, [facility] [place] [facility] [address] [id number] [place] [address]- 2546 Jan, [facility] [place] [facility] [address] [id number] [place] [address]- 2546 Jan, [facility] [place] [facility] [address] [id number] [place] [address]- 2546 Nov, [facility] [place] [facility] [address] [id number] [place] [address]- 2546 Sep, [facility] [place] [facility] [address] [id number] [place] [address]- 2546 Aug, [facility] [place] [facility] [address] [id number] [place] [address]- 6786 Jul, [facility] [address] [id number] [address]- 2962 Jul, [facility] [address] [address]- 3193 Jul, [facility] [address] 3976 Jul, [facility] [address] [address]- 4642 Jul, [facility] [address] [address]- 8352 Jul, [facility] [address] [place] [address] 053779- 1458 Jun, [facility] [address] [address]- 8869 Jun, [facility] [address] [address]- 2496 Jun, [facility] [address] [address]- 9982 Jun, [facility] [address] [address]- 0191 Feb, [facility] [address] [address]- 6013 Jan, [facility] [id number] [address]- 1704 Jan, [facility] [id number] [address]- 4889 Feb, [facility] [address] [address] 2021 Jan, IMMUNIZATIONS No Known Immunizations SOCIAL HISTORY Never Assessed REASON FOR VISIT Transition of Care---BAR Silva PLAN OF CARE Activity Details Follow Up 4 Weeks Reason:Lab follow up VITAL SIGNS Height 69 in 2017-04-19 Weight 130.1 lbs 2017-04-19 Temperature 98.5 degrees Fahrenheit 2017-04-19 Heart Rate 80 bpm 2017-04-19 Respiratory Rate 18 2017-04-19 BMI 19.21 kg/m2 2017-04-19 Blood pressure systolic 118 mmHg 2017-04-19 Blood pressure diastolic 74 mmHg 2017-04-19 MEDICATIONS Medication Instructions Dosage Frequency Start Date End Date Duration Status Nexium 24HR 20 MG Orally Once a day 1 capsule 24h Active Reglan 10 mg Orally 4 times a day, ac & HS 1 tablet Feb, 30 days Active Seroquel 100 mg Orally Once a day, hs 1 tablet Jan, 30 day(s ) Active Tramadol HCl 50 mg Orally 2 times a day 1 tablet as needed 12h 21 Apr, 2017 28 days Active Vitamin B Complex Active Zoloft 100 mg Orally Once a day 1 tablet 24h 14 Sep, 2016 90 days Active RESULTS Name Result Date Reference Range AMERITOX 2017-04-19 PROCEDURES Procedure Date Ordered Result Body Site Hemoglobin Test Send Out 0 dollar Apr 19, 2017 COMPLETE CBC W/AUTO DIFF WBC Apr 19, 2017 No Charge Apr 19, 2017 ASSAY THYROID STIM HORMONE Apr 19, 2017 COMPREHEN METABOLIC PANEL Apr 19, 2017 ASSAY OF MAGNESIUM Apr 19, 2017 LIPID PANEL Apr 19, 2017 INSTRUCTIONS MEDICATIONS ADMINISTERED No Known Medications MEDICAL [...]
--- OUTSIDE RECORDS SUMMARY | 2018-10-08 14:32 | XMS REPORT ---
Author Author LISA SIMEON Organization [facility] Address [address] [place] [address] Care Team Providers Care Auditor Appraiser Name Role Phone LISA SIMEON Unavailable PROBLEMS Type Condition ICD9-CM Code [id number] Code Onset Dates Condition Status SNOMED Code Problem Eosinophilia D72.1 Active 444230605 Problem Other chronic pain G89.29 Active 91748175 Problem Low back pain M54.5 Active 469886618 Problem Damian''s esophagus without dysplasia K22.70 Active 001073638 Problem Mixed hyperlipidemia E78.2 Active 231744675 Problem Erectile dysfunction, unspecified erectile dysfunction type N52.9 Active 495026404 Problem Moderate episode of recurrent major depressive disorder F33.1 Active 974605108 Problem Anxiety, generalized F41.1 Active 39711577 Problem Paranoid ideation F22 Active 747150441 Problem Arthritis M19.90 Active 0932429 Problem Chronic fatigue R53.82 Active 81912711 ALLERGIES No Information ENCOUNTERS Encounter Location Date Diagnosis [place] [address] 12406- 4209 Jan, Other chronic pain G89.29 [place] [id number] [place] [address] 08096- 4065 Nov, Other chronic pain G89.29 [facility] [id number] [place] [address] 77598- 3526 Oct, Other chronic pain G89.29 [place] [address] 86987- 6225 Sep, Moderate episode of recurrent major depressive disorder F33.1 ; GERD with esophagitis K21.0 ; Erectile dysfunction, unspecified erectile dysfunction type N52.9 ; Other chronic pain G89.29 ; Damian''s esophagus without dysplasia K22.70 and Mixed hyperlipidemia E78.2 [place] [id number] [place] [address] 24595- 5894 Sep, Low back pain M54.5 [place] [id number] [place] [address] 23219- 0876 Aug, GERD with esophagitis K21.0 ; Reactive depression F32.9 ; Chronic fatigue R53.82 ; Arthritis M19.90 ; Other chronic pain G89.29 and Low back pain M54.5 [place] [address] 85898- 3019 Jul, Encounter to establish care with new doctor Z76.89 [place] [address] 60955- 8286 Jun, Other chronic pain G89.29 [place] [address] 95925- 4022 Jun, Other chronic pain G89.29 [place] [address] 98873- 2998 May, GERD with esophagitis K21.0 and Other chronic pain G89.29 [place] [address] 27842- 9415 Apr, Low back pain M54.5 [place] [id number] [place] [address] 17264- 7972 Apr, Reactive depression F32.9 [place] [address] 91158- 1038 Mar, Encounter to establish care with new doctor Z76.89 ; Weight loss, unintentional R63.4 ; Moderate episode of recurrent major depressive disorder F33.1 ; Chronic fatigue R53.82 ; Low back pain M54.5 ; Arthritis M19.90 ; Controlled substance agreement signed Z79.899 and High risk medication use Z79.899 [place] [address] 02210- 5983 Mar, Low back pain M54.5 [facility] [id number] [place] [address] 36795- 4105 Mar, Reactive depression F32.9 ; Paranoid ideation F22 and Anxiety, generalized F41.1 [facility] [id number] [place] [address] 05572- 0412 Mar, [facility] [id number] [place] [address] 45769- 8787 Feb, [facility] [id number] [place] [address] 57812- 0999 Feb, [facility] [address] 85607- 8196 Feb, Epigastric pain R10.13 ; Weight loss R63.4 and Eustachian tube dysfunction, left H69.82 [facility] [id number] [place] [address] 99654- 4428 Jan, Reactive depression F32.9 and Low back pain M54.5 [facility] [id number] [place] [address] 30322- 8446 14 Sep, 2016 Reactive depression F32.9 and Irritable bowel syndrome without diarrhea K58.9 [facility] [id number] [place] [address] 26618- 1279 Aug, [facility] [id number] [place] [address] 53517- 7113 May, [facility] [id number] [place] [address] 94912- 6583 May, [facility] [id number] [place] [address] 53479- 4762 Mar, [facility] [id number] [place] [address] 59799- 2749 Mar, Leukocytosis, unspecified type D72.829 [facility] [id number] [place] [address] 98180- 1023 Mar, Leukocytosis, unspecified type D72.829 [place] [id number] [place] [address] 62622- 7531 Feb, Weight loss R63.4 ; Syncope, unspecified syncope type R55 ; Low back pain M54.5 ; Other chronic pain G89.29 and Reactive depression F32.9 [place] [address] 33750- 6886 Jul, [facility] [address] 75649- 5411 May, Arthritis M19.90 [place] [address] 48313- 1648 Apr, Chronic pain 338.29 [place] [id number] [place] [address] 65887- 7124 Apr, Anxiety state, unspecified 300.00 [facility] [id number] [place] [address] 53585- 7019 Jan, Anxiety state, unspecified 300.00 [facility] [id number] [place] [address] 93558- 3816 Jan, Chronic pain 338.29 and Anxiety state, unspecified 300.00 [facility] [id number] [place] [address] 04307- 5837 Jan, [facility] [id number] [place] [address] 24763- 1420 Nov, [facility] [id number] [place] [address] 43314- 3518 Nov, [facility] [id number] [place] [address] 180541- 6848 Oct, [facility] [id number] [place] [address] 03529- 2304 Oct, [facility] [address] [place] [id number] [facility] [place] [address]- 2228 13 Oct, 2014 [facility] [place] [facility] [address] [id number] [place] [address]- 1378 Oct, [facility] [place] [facility] [address] [id number] [place] [address]- 8859 Sep, 2014 [facility] [place] [facility] [address] [id number] [place] [address]- 9963 Sep, 2014 [facility] [place] [facility] [address] [id number] [place] [address]- 3641 Sep, 2014 [facility] [place] [facility] [address] [id number] [place] [address]- 7518 Sep, 2014 [facility] [place] [facility] [address] [facility] [id number] [place] [address]- 7737 May, [facility] [place] [facility] [address] [id number] [place] [address]- 1496 May, [facility] [place] [facility] [address] [id number] [place] [address]- 7322 Apr, [facility] [place] [facility] [address] [id number] [place] [address]- 9526 Apr, [facility] [place] [facility] [address] [facility] [id number] [place] [address]- 5019 Jan, [facility] [place] [facility] [address] [id number] [place] [address]- 8968 Jan, [facility] [place] [facility] [address] [id number] [place] [address]- 3614 Jan, [facility] [place] [facility] [address] [id number] [place] [address]- 3303 Jan, [facility] [place] [facility] [address] [id number] [place] [address]- 6713 Jan, [facility] [place] [facility] [address] [id number] [place] [address]- 7233 December, [facility] [place] [facility] [address] [id number] [place] [address]- 2678 December, [facility] [place] [facility] [address] [id number] [place] [address]- 8692 Sep, [facility] [place] [facility] [address] [id number] [place] [address]- 0320 Sep, [facility] [place] [facility] [address] [id number] [place] [address]- 1252 Aug, [facility] [place] [facility] [address] [id number] [place] [address]- 2744 Aug, [facility] [place] [facility] [address] [id number] [place] [address]- 7546 Jun, [facility] [place] [facility] [address] [id number] [place] [address]- 9870 Jun, [facility] [place] [facility] [address] [id number] [place] [address]- 7168 May, [facility] [place] [facility] [address] [id number] [place] [address]- 1050 May, [facility] [place] [facility] [address] [id number] [place] [address]- 5884 May, [facility] [place] [facility] [address] [id number], [place] [address]- 4222 Feb, [facility] [place] [facility] [address] [id number], [place] [address]- 9123 Jan, [facility] [place] [facility] [address] [id number] [place] [address]- 6076 Jan, [facility] [place] [facility] [address] [id number], [place] [address]- 6633 Jan, [facility] [place] [facility] [address] [id number] [place] [address] Nov, [facility] [place] [facility] [address] [id number] [place] [address] Sep, [facility] [place] [facility] [address] [id number] [place] [address] Aug, [facility] [place] [facility] [address] [id number] [place] [address] Jul, [facility] [place] [facility] [address] [id number] [place] [address] Jul, [facility] [place] [facility] [address] [id number] [place] [address] Jul, [facility] [place] [facility] [address] [id number] [place] [address] Jul, [facility] [place] [facility] [address] [id number] [place] [address] Jul, [facility] [place] [facility] [address] [id number] [place] [address] Jul, [facility] [place] [facility] [address] [id number] [place] [address] Jun, [facility] [place] [facility] [address] [id number] [place] [address] Jun, [facility] [place] [facility] [address] [id number] [place] [address] Jun, [facility] [place] [facility] [address] [id number] [place] [address] Jun, [facility] [place] [facility] [address] [id number] [place] [address] Feb, [facility] [place] [facility] [address] [id number] [place] [address] Jan, [facility] [place] [facility] [address] [id number] [place] [address] Jan, [facility] [place] [facility] [address] [id number] [place] [address] Feb, [facility] [address] [facility] [place]NOTE 2[place] [id number] [place] [address] Jan, 2011 IMMUNIZATIONS No Known Immunizations [...]
--- OUTSIDE RECORDS SUMMARY | 2018-10-08 14:33 | XMS REPORT ---
Author Author GORDON SALMON Organization [employer] Address Unknown Phone Unavailable Care Team Providers Care Marriage And Family Therapist Name Role Phone GORDON SALMON CP Unavailable Allergies No Known Allergies Problems Problem Type Condition Code Onset Dates Condition Status Problem Other chronic pain G89.29 Active Problem Reactive depression F32.9 Active Problem Low back pain M54.5 Active Medications Medication Code System Code Instructions Start Date End Date Status Dosage Tramadol HCl [facility][NOTE 3] [address]-61 50 MG Orally every 6 hrs 1 tablet as needed Results No Known Results Summary Purpose [employer] Submission
--- OUTSIDE RECORDS SUMMARY | 2018-10-08 14:33 | XMS REPORT ---
Author Author LISA SIMEON Organization [facility] Address [address] [place] [address] Care Team Providers Care Inspector Canned Food Reconditioning Name Role Phone LISA SIMEON Unavailable PROBLEMS Type Condition ICD9-CM Code LUZ88-GA Code Onset Dates Condition Status SNOMED Code Problem Eosinophilia D72.1 Active 299155070 Problem Other chronic pain G89.29 Active 50428609 Problem Low back pain M54.5 Active 839986678 Problem Damian''s esophagus without dysplasia K22.70 Active 937368823 Problem Mixed hyperlipidemia E78.2 Active 473484837 Problem Erectile dysfunction, unspecified erectile dysfunction type N52.9 Active 226627707 Problem Moderate episode of recurrent major depressive disorder F33.1 Active 770845272 Problem Anxiety, generalized F41.1 Active 92949535 Problem Paranoid ideation F22 Active 554269161 Problem Arthritis M19.90 Active 8939926 Problem Chronic fatigue R53.82 Active 89597098 ALLERGIES No Information ENCOUNTERS Encounter Location Date Diagnosis [place] [id number] [place] [address] 23625- 5717 Jan, [place] [id number] [place] [address] 92533- 7994 Nov, Other chronic pain G89.29 [place] [address] 02721- 4583 Oct, Other chronic pain G89.29 [place] [address] 68080- 7981 Sep, Moderate episode of recurrent major depressive disorder F33.1 ; GERD with esophagitis K21.0 ; Erectile dysfunction, unspecified erectile dysfunction type N52.9 ; Other chronic pain G89.29 ; Damian''s esophagus without dysplasia K22.70 and Mixed hyperlipidemia E78.2 [place] [id number] [place] [address] 81701- 8803 Sep, Low back pain M54.5 [place] [address] 95118- 7405 Aug, GERD with esophagitis K21.0 ; Reactive depression F32.9 ; Chronic fatigue R53.82 ; Arthritis M19.90 ; Other chronic pain G89.29 and Low back pain M54.5 [place] [address] 37167- 1825 Jul, Encounter to establish care with new doctor Z76.89 [place] [address] 98239- 1818 Jun, Other chronic pain G89.29 [place] [address] 21800- 6088 Jun, Other chronic pain G89.29 [place] [address] 56537- 9395 May, GERD with esophagitis K21.0 and Other chronic pain G89.29 [place] [address] 65208- 8007 Apr, Low back pain M54.5 [place] [id number] [place] [address] 80232- 9921 Apr, Reactive depression F32.9 [place] [id number] [place] [address] 49451- 9002 Mar, Encounter to establish care with new doctor Z76.89 ; Weight loss, unintentional R63.4 ; Moderate episode of recurrent major depressive disorder F33.1 ; Chronic fatigue R53.82 ; Low back pain M54.5 ; Arthritis M19.90 ; Controlled substance agreement signed Z79.899 and High risk medication use Z79.899 [place] [id number] [place] [address] 01730- 9668 Mar, Low back pain M54.5 [facility] [id number] [place] [address] 53729- 5328 Mar, Reactive depression F32.9 ; Paranoid ideation F22 and Anxiety, generalized F41.1 [facility] [id number] [place] [address] 38434- 7720 Mar, [facility] [id number] [place] [address] 45934- 4005 Feb, [facility] [id number] [place] [address] 43712- 4646 Feb, [place] [address] 78377- 1349 Feb, Epigastric pain R10.13 ; Weight loss R63.4 and Eustachian tube dysfunction, left H69.82 [place] [id number] [place] [address] 54983- 5969 Jan, Reactive depression F32.9 and Low back pain M54.5 [facility] [id number] [place] [address] 17209- 3979 14 Sep, 2016 Reactive depression F32.9 and Irritable bowel syndrome without diarrhea K58.9 [facility] [id number] [place] [address] 44349- 9356 Aug, [facility] [id number] [place] [address] 01523- 2256 May, [facility] [id number] [place] [address] 06286- 9206 May, [facility] [id number] [place] [address] 88408- 4349 Mar, [facility] [id number] [place] [address] 55619- 6859 Mar, Leukocytosis, unspecified type D72.829 [facility] [id number] [place] [address] 92288- 2414 Mar, Leukocytosis, unspecified type D72.829 [facility] [id number] [place] [address] 30615- 3301 Feb, Weight loss R63.4 ; Syncope, unspecified syncope type R55 ; Low back pain M54.5 ; Other chronic pain G89.29 and Reactive depression F32.9 [place] [address] 85873- 5413 Jul, [facility] [address] 24079- 8872 May, Arthritis M19.90 [place] [address] 05745- 0866 Apr, Chronic pain 338.29 [place] [address] 01165- 3456 Apr, Anxiety state, unspecified 300.00 [facility] [address] 16540- 9815 Jan, Anxiety state, unspecified 300.00 [facility] [id number] [place] [address] 08301- 3404 Jan, Chronic pain 338.29 and Anxiety state, unspecified 300.00 [facility] [id number] [place] [address] 77024- 8953 Jan, [facility] [id number] [place] [address] 24013- 5804 [address], [address] [facility] [id number] [place] [address] 85756- 1688 Nov, [facility] [address] 68228- 6038 Oct, [facility] [id number] [place] [address] 70441- 2074 Oct, [facility] [address] 22602- 7482 Oct, [facility] [place] [facility] [address] [id number] [place] [address]- 0861 Oct, [facility] [place] [facility] [address] [id number] [place] [address]- 4483 Sep, 2014 [facility] [place] [facility] [address] [id number] [place] [address]- 8747 Sep, [facility] [place] [facility] [address] [id number] [place] [address]- 3566 Sep, [facility] [place] [facility] [address] [id number] [place] [address]- 8683 Sep, [facility] [place] [facility] [address] [id number] [place] [address]- 2208 May, [facility] [place] [facility] [address] [id number] [place] [address]- 0197 May, [facility] [place] [facility] [address] [id number] [place] [address]- 2344 Apr, [facility] [place] [facility] [address] [id number] [place] [address]- 4253 Apr, [facility] [place] [facility] [address] [facility] [id number] [place] [address]- 9197 Jan, [facility] [place] [facility] [address] [id number] [place] [address]- 5276 Jan, [facility] [place] [facility] [address] [id number] [place] [address]- 0185 Jan, [facility] [place] [facility] [address] [id number] [place] [address]- 9865 Jan, [facility] [place] [facility] [address] [id number] [place] [address]- 5749 Jan, [facility] [place] [facility] [address] [facility] [id number] [place] [address]- 2913 December, [facility] [place] [facility] [address] [id number] [place] [address]- 3341 December, [facility] [place] [facility] [address] [id number] [place] [address]- 9908 Sep, [facility] [place] [facility] [address] [id number] [place] [address]- 0518 Sep, [facility] [place] [facility] [address] [id number] [place] [address]- 7705 Aug, [facility] [place] [facility] [address] [id number] [place] [address]- 4356 Aug, [facility] [place] [facility] [address] [id number] [place] [address]- 1466 Jun, [facility] [place] [facility] [address] [id number] [place] [address]- 9704 Jun, [facility] [place] [facility] [address] [id number] [place] [address]- 0555 May, [facility] [place] [facility] [address] [id number] [place] [address]- 1876 May, [facility] [place] [facility] [address] [id number] [place] [address]- 0796 May, [facility] [place] [facility] [address] [id number] [place] [address]- 3261 Feb, [facility] [place] [facility] [address] [id number] [place] [address]- 2844 Jan, [facility] [place] [facility] [address] [id number] [place] [address]- 5932 Jan, [facility] [place] [facility] [address] [id number] [place] [address]- 9195 Jan, [facility] [place] [facility] [address] [id number] [place] [address]- 5623 Nov, [facility] [place] [facility] [address] [id number] [place] [address]- 7028 Sep, [facility] [place] [facility] [address] [id number] [place] [address]- 0585 Aug, [facility] [place] [facility] [address] [id number] [place] [address]- 5816 Jul, [facility] [place] [facility] [address] [id number] [place] [address]- 9306 Jul, [facility] [place] [facility] [address] [id number] [place] [address]- 4802 Jul, [facility] [place] [facility] [address] [id number] [place] [address]- 7885 Jul, [facility] [place] [facility] [address] [id number] [place] [address]- 6979 Jul, [facility] [place] [facility] [address] [id number] [place] [address]- 8303 Jul, [facility] [place] [facility] [address] [id number] [place] [address]- 9956 Jun, [facility] [place] [facility] [address] [id number] [place] [address]- 6096 Jun, [facility] [place] [facility] [address] [id number] [place] [address]- 1427 Jun, [facility] [place] [facility] [address] [id number] [place] [address]- 5236 Jun, [facility] [place] [facility] [address] [id number] [place] [address]- 4348 Feb, [facility] [place] [facility] [address] [id number] [place] [address]- 1412 Jan, [facility] [place] [facility] [address] [id number] [place] [address]- 1187 Jan, [facility] [place] [facility] [address] [id number] [place] [address]- 9041 Feb, [facility] [place] [facility] [address] [facility] [id number] [place] [address]- 8222 16 Jan, 2011 IMMUNIZATIONS No Known Immunizations [...]
--- OUTSIDE RECORDS SUMMARY | 2018-10-08 14:33 | XMS REPORT ---
Author Author ZHENG YANCEY Organization [facility] Address [address] [place] [address] Care Team Providers Care Converter Operator Name Role Phone ZHENG YANCEY Unavailable PROBLEMS Type Condition ICD9-CM Code AMS66-NR Code Onset Dates Condition Status SNOMED Code Problem Eosinophilia D72.1 Active 664573328 Problem Other chronic pain G89.29 Active 28263455 Problem Low back pain M54.5 Active 202581478 Problem Damian''s esophagus without dysplasia K22.70 Active 431328265 Problem Mixed hyperlipidemia E78.2 Active 096589706 Problem Erectile dysfunction, unspecified erectile dysfunction type N52.9 Active 653151536 Problem Moderate episode of recurrent major depressive disorder F33.1 Active 256578906 Problem Anxiety, generalized F41.1 Active 32615124 Problem Paranoid ideation F22 Active 514363140 Problem Arthritis M19.90 Active 8222551 Problem Chronic fatigue R53.82 Active 73650267 ALLERGIES No Information ENCOUNTERS Encounter Location Date Diagnosis [place] [address] 85371- 8199 Oct, Other chronic pain G89.29 [place] [address] [place] [address] [id number] [place] [address] 99054- 7508 Sep, Moderate episode of recurrent major depressive disorder F33.1 ; GERD with esophagitis K21.0 ; Erectile dysfunction, unspecified erectile dysfunction type N52.9 ; Other chronic pain G89.29 ; Damian''s esophagus without dysplasia K22.70 and Mixed hyperlipidemia E78.2 [place] [id number] [place] [address] 67095- 3262 Sep, Low back pain M54.5 [facility] [id number] [place] [address] 76139- 9467 Aug, GERD with esophagitis K21.0 ; Reactive depression F32.9 ; Chronic fatigue R53.82 ; Arthritis M19.90 ; Other chronic pain G89.29 and Low back pain M54.5 [place] [id number] [place] [address] 39080- 1290 Jul, Encounter to establish care with new doctor Z76.89 [place] [address] 48928- 0283 Jun, Other chronic pain G89.29 [place] [address] 44864- 5977 Jun, Other chronic pain G89.29 [place] [address] 04764- 9917 May, GERD with esophagitis K21.0 and Other chronic pain G89.29 [place] [address] 36086- 9177 Apr, Low back pain M54.5 [place] [id number] [place] [address] 97099- 9887 Apr, Reactive depression F32.9 [place] [address] 00299- 3404 Mar, Encounter to establish care with new doctor Z76.89 ; Weight loss, unintentional R63.4 ; Moderate episode of recurrent major depressive disorder F33.1 ; Chronic fatigue R53.82 ; Low back pain M54.5 ; Arthritis M19.90 ; Controlled substance agreement signed Z79.899 and High risk medication use Z79.899 [place] [id number] [place] [address] 77417- 6775 Mar, Low back pain M54.5 [place] [id number] [place] [address] 81666- 1755 Mar, Reactive depression F32.9 ; Paranoid ideation F22 and Anxiety, generalized F41.1 [place] [address] [place] [address]- 0161 Mar, [facility] [id number] [place] [address] 21833- 5967 Feb, [facility] [id number] [place] [address] 17271- 0274 Feb, [facility] [address] [place] [id number] [place] [address] 95412- 9897 Feb, Epigastric pain R10.13 ; Weight loss R63.4 and Eustachian tube dysfunction, left H69.82 [facility] [address] [id number] [place] [address] 03386- 3460 Jan, Reactive depression F32.9 and Low back pain M54.5 [place] [id number] [place] [address] 53769- 7452 Sep, Reactive depression F32.9 and Irritable bowel syndrome without diarrhea K58.9 [facility] [id number] [place] [address] 85785- 2569 Aug, [facility] [id number] [place] [address] 81735- 3720 May, [facility] [id number] [place] [address] 84943- 4494 May, [facility] [id number] [place] [address] 70054- 9210 Mar, [facility] [id number] [place] [address] 14376- 2750 Mar, Leukocytosis, unspecified type D72.829 [facility] [id number] [place] [address] 31167- 0972 Mar, Leukocytosis, unspecified type D72.829 [facility] [address] [place] [address] 35326- 6694 Feb, Weight loss R63.4 ; Syncope, unspecified syncope type R55 ; Low back pain M54.5 ; Other chronic pain G89.29 and Reactive depression F32.9 [facility] [id number] [place] [address] 89386- 4828 Jul, [facility] [id number] [place] [address] 03233- 1479 May, Arthritis M19.90 [facility] [id number] [place] [address] 36291- 7445 Apr, Chronic pain 338.29 [facility] [id number] [place] [address] 26988- 6904 Apr, Anxiety state, unspecified 300.00 [facility] [id number] [place] [address] 41939- 3215 17 Jan, 2015 Anxiety state, unspecified 300.00 [facility] [id number] [place] [address] 93557- 0805 Jan, Chronic pain 338.29 and Anxiety state, unspecified 300.00 [facility] [id number] [place] [address] 51526- 0951 Jan, [facility] [id number] [place] [address] 53966- 6446 14 Nov, 2014 [facility] [address] [place] [address] 54780- 9562 Nov, [facility] [id number] [place] [address] 40253- 5204 Oct, [facility] [id number] [place] [address] 15415- 4112 25 Oct, 2014 [facility] [id number] [place] [address] 95002- 0220 Oct, [facility] [id number] [place] [address] 77077- 0010 13 Oct, 2014 [facility] [id number] [place] [address] 07550- 1329 Sep, [facility] [place] [facility] [address] [id number] [place] [address]- 5126 Sep, [facility] [place] [facility] [address] [id number] [place] [address]- 6537 Sep, [facility] [place] [facility] [address] [facility] [id number] [place] [address]- 4857 Sep, [facility] [place] [facility] [address] [id number] [place] [address]- 9237 May, [facility] [place] [facility] [address] [id number] [place] [address]- 5449 May, [facility] [place] [facility] [address] [id number] [place] [address]- 2501 Apr, [facility] [place] [facility] [address] [id number] [place] [address]- 5775 Apr, [facility] [place] [facility] [address] [id number] [place] [address]- 2317 Jan, [facility] [place] [facility] [address] [id number] [place] [address]- 3302 Jan, [facility] [place] [facility] [address] [facility] [id number] [place] [address]- 1567 Jan, [facility] [place] [facility] [address] [id number], [place] [address]- 8027 Jan, [facility] [place] [facility] [address] [id number], [place] [address]- 0908 Jan, [facility] [place] [facility] [address] [id number], [place] [address]- 8388 December, [facility] [place] [facility] [address] [id number] [place] [address]- 3565 December, [facility] [place] [facility] [address] [facility] [id number] [place] [address]- 7814 Sep, [facility] [place] [facility] [address] [id number] [place] [address]- 2546 Sep, [facility] [place] [facility] [address] [id number] [place] [address]- 8883 Aug, [facility] [place] [facility] [address] [id number] [place] [address]- 2546 Aug, [facility] [place] [facility] [address] [id number] [place] [address] 2546 Jun, [facility] [place] [facility] [address] [id number] [place] [address]- 2546 Jun, [facility] [place] [facility] [address] [id number] [place] [address]- 4085 May, [facility] [place] [facility] [address] [id number] [place] [address]- 3106 May, [facility] [place] [facility] [address] [id number] [place] [address]- 8396 May, [facility] [place] [facility] [address] [id number] [place] [address]- 4322 Feb, [facility] [place] [facility] [address] [id number] [place] [address]- 4171 Jan, [facility] [place] [facility] [address] [id number] [place] [address] 2546 Jan, [facility] [place] [facility] [address] [id number] [place] [address]- 2546 Jan, [facility] [place] [facility] [address] [id number] [place] [address]- 2546 Nov, [facility] [place] [facility] [address] [id number] [place] [address]- 2546 Sep, [facility] [place] [facility] [address] [id number] [place] [address]- 2546 Aug, [facility] [place] [facility] [address] [id number] [place] [address]- 5963 Jul, [facility] [id number] [address]- 5947 Jul, [facility] [address] [address]- 3753 Jul, [facility] [address], [place] [address]- 1274 Jul, [facility] [address] [id number] [address] Jul, [facility] [id number], [place] [address] Jul, [facility] [id number] [place] [address] Jun, [facility] [id number], [place] [address] Jun, [facility] [id number], [place] [address] Jun, [facility] [id number], [place] [address] Jun, [facility] [id number], [place] [address] Feb, [facility] [id number], [place] [address] Jan, [facility] [id number], [place] [address] Jan, [facility] [id number], [place] [address] Feb, [facility] [id number], [place] [address] Jan, IMMUNIZATIONS No Known Immunizations SOCIAL HISTORY Never Assessed REASON FOR VISIT intake PLAN OF CARE Activity Details Follow Up 2 Weeks Reason:Depression, anxiety, paranoid ideation VITAL SIGNS MEDICATIONS Unknown Medications RESULTS No Results PROCEDURES Procedure Date Ordered Result Body Site Psych diagnostic evaluation, established patient Mar 28, 2017 INSTRUCTIONS MEDICATIONS ADMINISTERED No Known Medications [...]
--- OUTSIDE RECORDS SUMMARY | 2018-10-08 14:33 | XMS REPORT ---
Author Author LISA SIMEON Organization [facility] Address [address] [place] [address] Care Team Providers Care Sales And Merchandising Associate Name Role Phone LISA SIMEON Unavailable PROBLEMS Type Condition ICD9-CM Code ZIN65-MQ Code Onset Dates Condition Status SNOMED Code Problem Eosinophilia D72.1 Active 292187674 Problem Other chronic pain G89.29 Active 74863934 Problem Low back pain M54.5 Active 748688355 Problem Damian''s esophagus without dysplasia K22.70 Active 327244624 Problem Mixed hyperlipidemia E78.2 Active 044086536 Problem Erectile dysfunction, unspecified erectile dysfunction type N52.9 Active 092949914 Problem Moderate episode of recurrent major depressive disorder F33.1 Active 170330119 Problem Anxiety, generalized F41.1 Active 67233271 Problem Paranoid ideation F22 Active 518403024 Problem Arthritis M19.90 Active 2092081 Problem Chronic fatigue R53.82 Active 40413615 ALLERGIES No Known Allergies ENCOUNTERS Encounter Location Date Diagnosis [place] [address] [address]- [address] Jan, Other chronic pain G89.29 [place] [address] [id number] [place] [address] 80381- 6883 Nov, Other chronic pain G89.29 [facility] [id number] [place] [address] 06957- 3646 Oct, Other chronic pain G89.29 [place] [address] 55793- 8892 Sep, Moderate episode of recurrent major depressive disorder F33.1 ; GERD with esophagitis K21.0 ; Erectile dysfunction, unspecified erectile dysfunction type N52.9 ; Other chronic pain G89.29 ; Damian''s esophagus without dysplasia K22.70 and Mixed hyperlipidemia E78.2 [place] [address] [place] [address] [id number] [place] [address] 06185- 9642 Sep, Low back pain M54.5 [place] [address] [place] [id number] [place] [address] 68576- 0556 Aug, GERD with esophagitis K21.0 ; Reactive depression F32.9 ; Chronic fatigue R53.82 ; Arthritis M19.90 ; Other chronic pain G89.29 and Low back pain M54.5 [place] [address] 25864- 4224 Jul, Encounter to establish care with new doctor Z76.89 [place] [address] 38022- 8168 Jun, Other chronic pain G89.[address] [address]- 1092 Jun, Other chronic pain G89.29 [place] [address] 37583- 4413 May, GERD with esophagitis K21.0 and Other chronic pain G89.29 [place] [address] 66618- 4909 Apr, Low back pain M54.5 [place] [address] [place] [id number] [place] [address] 28365- 3598 Apr, Reactive depression F32.9 [place] [address] 81171- 6044 Mar, Encounter to establish care with new doctor Z76.89 ; Weight loss, unintentional R63.4 ; Moderate episode of recurrent major depressive disorder F33.1 ; Chronic fatigue R53.82 ; Low back pain M54.5 ; Arthritis M19.90 ; Controlled substance agreement signed Z79.899 and High risk medication use Z79.899 [place] [address] 16153- 7267 Mar, Low back pain M54.5 [facility] [id number] [place] [address] 13476- 4348 Mar, Reactive depression F32.9 ; Paranoid ideation F22 and Anxiety, generalized F41.1 [facility] [address] [id number] [place] [address] 74790- 2960 Mar, [facility] [id number] [place] [address] 16348- 3262 Feb, [facility] [id number] [place] [address] 58928- 5327 Feb, [facility] [address] [place] [id number] [place] [address] 15910- 1971 Feb, Epigastric pain R10.13 ; Weight loss R63.4 and Eustachian tube dysfunction, left H69.82 [facility] [id number] [place] [address] 00019- 8377 Jan, Reactive depression F32.9 and Low back pain M54.5 [facility] [address] [place] [id number] [place] [address] 84658- 7220 14 Sep, 2016 Reactive depression F32.9 and Irritable bowel syndrome without diarrhea K58.9 [facility] [address] [place] [id number] [place] [address] 92838- 6217 Aug, [facility] [address] [place] [id number] [place] [address] 03784- 8875 May, [facility] [id number] [place] [address] 22056- 9044 May, [facility] [address] [place] [id number] [place] [address] 63851- 2566 Mar, [facility] [address] [place] [id number] [place] [address] 77917- 5250 Mar, Leukocytosis, unspecified type D72.829 [facility] [address] [place] [id number] [place] [address] 52187- 5836 Mar, Leukocytosis, unspecified type D72.829 [place] [address] [place] [address] [id number] [place] [address] 17406- 2094 Feb, Weight loss R63.4 ; Syncope, unspecified syncope type R55 ; Low back pain M54.5 ; Other chronic pain G89.29 and Reactive depression F32.9 [place] [address] 34057- 5803 Jul, [facility] [address] [place] [id number] [place] [address] 08477- 1396 May, Arthritis M19.90 [place] [address] 62684- 3551 Apr, Chronic pain 338.29 [place] [address] [place] [id number] [place] [address] 23635- 4035 Apr, Anxiety state, unspecified 300.00 [facility] [address] [place] [id number] [place] [address] 77357- 0524 Jan, Anxiety state, unspecified 300.00 [facility] [address] [place] [id number] [place] [address] 02111- 4748 Jan, Chronic pain 338.29 and Anxiety state, unspecified 300.00 [facility] [address] [place] [id number] [place] [address] 64829- 3112 Jan, [facility] [address] [place] [id number] [place] [address] 64858- 9878 Nov, [facility] [address] [place] [id number] [place] [address] 08101- 7383 Nov, [facility] [address] [place] [id number] [place] [address] 167446- 4525 Oct, [facility] [address] [place] [id number] [place] [address] 16963- 5754 Oct, [facility] [address] [place] [id number] [place] [address]- 0855 Oct, [facility] [place] [facility] [address] [id number] [place] [address]- 7596 Oct, [facility] [place] [facility] [address] [id number] [place] [address]44 Sep, 2014 [facility] [place] [facility] [address] [id number] [place] [address]- 5446 Sep, 2014 [facility] [place] [facility] [address] [id number] [place] [address]- 6525 Sep, [facility] [place] [facility] [address] [id number] [place] [address] Sep, [facility] [place] [facility] [address] [id number] [place] [address]- 1104 May, [facility] [place] [facility] [address] [id number] [place] [address]- 9522 May, [facility] [place] [facility] [address] [id number] [place] [address]- 5688 Apr, [facility] [place] [facility] [address] [id number] [place] [address]- 8403 Apr, [facility] [place] [facility] [address] [id number] [place] [address]- 0054 Jan, [facility] [place] [facility] [address] [id number] [place] [address]- 2660 Jan, [facility] [place] [facility] [address] [id number] [place] [address]- 3282 Jan, [facility] [place] [facility] [address] [id number] [place] 8147 Jan, [facility] [place] [facility] [address] [id number] [place] [address]- 1617 Jan, [facility] [place] [facility] [address] [id number] [place] [address]- 2220 December, [facility] [place] [facility] [address] [id number] [place] [address]- 2757 December, [facility] [place] [facility] [address] [id number] [place] [address]- 3405 Sep, [facility] [place] [facility] [address] [id number] [place] [address]- 7823 Sep, [facility] [place] [facility] [address] [id number] [place] [address]- 9539 Aug, [facility] [place] [facility] [address] [id number] [place] [address]- 4456 Aug, [facility] [place] [facility] [address] [id number] [place] [address]- 2745 Jun, [facility] [place] [facility] [address] [id number] [place] [address]- 4217 Jun, [facility] [place] [facility] [address] [id number] [place] [address]- 3378 May, [facility] [place] [facility] [address] [id number] [place] [address]- 5714 May, [facility] [place] [facility] [address] [id number] [place] [address]- 5811 May, [facility] [place] [facility] [address] [id number], [place] [address]- 9908 Feb, [facility] [place] [facility] [address] [id number], [place] [address]- 7544 Jan, [facility] [place] [facility] [address] [id number] [place] [address]- 2874 Jan, [facility] [place] [facility] [address] [id number], [place] [address]- 2581 Jan, [facility] [place] [facility] [address] [id number] [place] [address]- 0611 Nov, [facility] [place] [facility] [address] [id number] [place] [address]- 4931 Sep, [facility] [address] [id number] [place] [address]- 2158 Aug, [facility] [place] [facility] [address] [id number] [place] [address]- 6336 Jul, [facility] [place] [facility] [address] [id number] [place] [address]- 1286 Jul, [facility] [place] [facility] [address] [id number] [place] [address]- 5413 Jul, [facility] [place] [facility] [address] [id number] [place] [address]- 4716 Jul, [facility] [place] [facility] [address] [id number] [place] [address]- 7659 Jul, [facility] [address] [id number] [place] [address]- 7881 Jul, [facility] [place] [facility] [address] [id number] [place] [address]- 4644 Jun, [facility] [place] [facility] [address] [id number] [place] [address]- 3529 Jun, [facility] [place] [facility] [address] [id number] [place] [address]- 1005 Jun, [facility] [place] [facility] [address] [id number] [place] [address]- 8636 Jun, [facility] [place] [facility] [address] [id number] [place] [address]- 7289 Feb, [facility] [place] [facility] [address] [id number] [place] [address]- 0409 Jan, [facility] [place] [facility] [address] [id number] [place] [address]- 6920 Jan, [facility] [place] [facility] [address] [id number] [place] [address]- 8771 Feb, [facility] [place] [facility] [address] [facility] [id number] [place] [address]- 4127 16 Jan, 2011 IMMUNIZATIONS No Known Immunizations SOCIAL HISTORY Never Assessed REASON FOR VISIT Pain management (chronic) [place], Has been out of work, no access to medications, would like to access repository, Having problems with left elbow pain, has been using OTC salves, denies injury PLAN OF CARE Activity Details Follow Up 3 Months Reason:CHM/Pain VITAL SIGNS Height 69 in 2017-09-24 Weight 142.2 lbs 2017-09-24 Temperature 98 degrees Fahrenheit 2017-09-24 Heart Rate 84 bpm 2017-09-24 Respiratory Rate 20 2017-09-24 BMI 21.00 kg/m2 2017-09-24 Blood pressure systolic 118 mmHg 2017-09-24 Blood pressure diastolic 64 mmHg 2017-09-24 MEDICATIONS Medication Instructions Dosage Frequency Start Date End Date Duration Status Pantoprazole Sodium 40 mg Orally Once a day 1 tablet 24h Aug, 90 days Active Quetiapine Fumarate 100 mg Orally Once a day Take 1 tablet by mouth at bedtime. 24h 30 days Active Carafate 1 GM Orally Twice a day 1 tablet at bedtime on an empty stomach before meals 12h Active Vistaril 25 MG Orally 2 times a day 1 capsule as needed 12h 30 days Not-Taking Vitamin B Complex Not-Taking Zoloft 100 mg Orally Once a day 1 tablet 24h 14 Sep, 2016 30 days Active Tramadol HCl 50 mg Orally 2 times a day 1 tablet as needed 12h 26 Sep, 2017 28 days Active Reglan 10 mg Orally 4 times a day, ac & HS 1 tablet Feb, 30 days Active Carafate 1 GM Orally Twice a day 1 tablet at bedtime on an empty stomach before meals 12h Aug, Sep, 30 day(s) Active RESULTS No Results PROCEDURES Procedure Date Ordered Result Body Site COMPLETE CBC W/AUTO DIFF WBC Sep 24, 2017 COMPREHEN METABOLIC PANEL Sep 24, 2017 LIPID PANEL Sep 24, 2017 ASSAY THYROID STIM HORMONE Sep 24, 2017 VENIPUNCT, ROUTINE* Sep 24, 2017 INSTRUCTIONS MEDICATIONS ADMINISTERED No Known Medications [...]
--- OUTSIDE RECORDS SUMMARY | 2018-10-08 14:34 | XMS REPORT ---
Author Author LISA SIMEON Organization [facility] Address [address] [place] [address] Care Team Providers Care Smocking Machine Operator Name Role Phone LISA SIMEON Unavailable PROBLEMS Type Condition ICD9-CM Code [id number] Code Onset Dates Condition Status SNOMED Code Problem Eosinophilia D72.1 Active 775131135 Problem Other chronic pain G89.29 Active 09898732 Problem Low back pain M54.5 Active 991716114 Problem Damian''s esophagus without dysplasia K22.70 Active 381855754 Problem Mixed hyperlipidemia E78.2 Active 543427218 Problem Erectile dysfunction, unspecified erectile dysfunction type N52.9 Active 583243903 Problem Moderate episode of recurrent major depressive disorder F33.1 Active 960551629 Problem Anxiety, generalized F41.1 Active 73691738 Problem Paranoid ideation F22 Active 957519783 Problem Arthritis M19.90 Active 6319557 Problem Chronic fatigue R53.82 Active 92084793 ALLERGIES No Information ENCOUNTERS Encounter Location Date Diagnosis [place] [address] [place] [id number] [place] [address] 23109- 5673 Jan, [place] [address] [place] [id number] [place] [address] 79517- 7132 Nov, Other chronic pain G89.29 [place] [address] 91550- 5568 Oct, Other chronic pain G89.29 [place] [address] 59445- 4808 Sep, Moderate episode of recurrent major depressive disorder F33.1 ; GERD with esophagitis K21.0 ; Erectile dysfunction, unspecified erectile dysfunction type N52.9 ; Other chronic pain G89.29 ; Damian''s esophagus without dysplasia K22.70 and Mixed hyperlipidemia E78.2 [place] [address] [place] [id number] [place] [address] 73320- 9875 Sep, Low back pain M54.5 [place] [address] 02838- 3556 Aug, GERD with esophagitis K21.0 ; Reactive depression F32.9 ; Chronic fatigue R53.82 ; Arthritis M19.90 ; Other chronic pain G89.29 and Low back pain M54.5 [place] [address] 92606- 6098 Jul, Encounter to establish care with new doctor Z76.89 [place] [address] 39708- 1799 Jun, Other chronic pain G89.29 [place] [address] 52416- 5511 Jun, Other chronic pain G89.29 [place] [address] 61657- 7215 May, GERD with esophagitis K21.0 and Other chronic pain G89.29 [place] [address] 57508- 5077 Apr, Low back pain M54.5 [place] [address] [place] [id number] [place] [address] 64819- 0250 Apr, Reactive depression F32.9 [place] [address] [place] [id number] [place] [address] 71060- 7170 Mar, Encounter to establish care with new doctor Z76.89 ; Weight loss, unintentional R63.4 ; Moderate episode of recurrent major depressive disorder F33.1 ; Chronic fatigue R53.82 ; Low back pain M54.5 ; Arthritis M19.90 ; Controlled substance agreement signed Z79.899 and High risk medication use Z79.899 [place] [address] [place] [id number] [place] [address] 41140- 6663 Mar, Low back pain M54.5 [facility] [address] [place] [address] 36548- 2176 Mar, Reactive depression F32.9 ; Paranoid ideation F22 and Anxiety, generalized F41.1 [facility] [address] [place] [id number] [place] [address] 13575- 0513 Mar, [facility] [address] [place] [id number] [place] [address] 28813- 9548 Feb, [facility] [address] [place] [id number] [place] [address] 53861- 4163 Feb, [place] [address] 10802- 1022 Feb, Epigastric pain R10.13 ; Weight loss R63.4 and Eustachian tube dysfunction, left H69.82 [place] [address] [place] [id number] [place] [address] 01219- 4495 Jan, Reactive depression F32.9 and Low back pain M54.5 [facility] [address] [place] [id number] [place] [address] 77358- 5623 14 Sep, 2016 Reactive depression F32.9 and Irritable bowel syndrome without diarrhea K58.9 [facility] [address] [place] [id number] [place] [address] 56809- 1562 Aug, [facility] [address] [place] [id number] [place] [address] 49496- 9497 May, [facility] [address] [place] [id number] [place] [address] 57484- 2711 May, [facility] [address] [place] [id number] [place] [address] 42361- 2249 Mar, [facility] [address] [place] [id number] [place] [address] 22471- 3465 Mar, Leukocytosis, unspecified type D72.829 [facility] [id number] [place] [address] 69601- 7854 Mar, Leukocytosis, unspecified type D72.829 [facility] [address] [place] [id number] [place] [address] 27004- 5930 Feb, Weight loss R63.4 ; Syncope, unspecified syncope type R55 ; Low back pain M54.5 ; Other chronic pain G89.29 and Reactive depression F32.9 [place] [address] 98746- 5293 Jul, [facility] [address] 94090- 7840 May, Arthritis M19.90 [place] [address] 13561- 4844 Apr, Chronic pain 338.29 [place] [address] 84781- 8276 Apr, Anxiety state, unspecified 300.00 [facility] [address] 66530- 7153 Jan, Anxiety state, unspecified 300.00 [facility] [address] [place] [id number] [place] [address] 18167- 4991 Jan, Chronic pain 338.29 and Anxiety state, unspecified 300.00 [facility] [address] [address] [id number] [place] [address] 48927- 5391 Jan, [facility] [address] [address] [id number] [place] [address] 58608- 3430 14 Nov, 2014 [facility] [address] [place] [address] [id number] [place] [address] 34893- 3807 Nov, [facility] [address] 44438- 7793 Oct, [facility] [address] [id number] [place] [address] 46469- 0229 Oct, [facility] [address] 21734- 0059 Oct, [facility] [place] [facility] [address] [id number] [place] [address]- 0195 Oct, [facility] [place] [facility] [address] [id number] [place] [address]- 4949 Sep, 2014 [facility] [place] [facility] [address] [id number] [place] [address]- 7370 Sep, [facility] [place] [facility] [address] [id number] [place] [address]- 5718 Sep, [facility] [place] [facility] [address] [id number] [place] [address]- 0223 Sep, [facility] [place] [facility] [address] [id number] [place] [address]- 0658 May, [facility] [place] [facility] [address] [id number] [place] [address]- 6375 May, [facility] [place] [facility] [address] [id number] [place] [address]- 7771 Apr, [facility] [place] [facility] [address] [id number] [place] [address]- 8935 Apr, [facility] [place] [facility] [address] [facility] [id number] [place] [address]- 6803 Jan, [facility] [place] [facility] [address] [id number] [place] [address]- 5617 Jan, [facility] [place] [facility] [address] [id number] [place] [address]- 5306 Jan, [facility] [place] [facility] [address] [id number] [place] [address]- 9804 Jan, [facility] [place] [facility] [address] [id number] [place] [address]- 6714 Jan, [facility] [place] [facility] [address] [facility] [id number] [place] [address]- 9844 December, [facility] [place] [facility] [address] [id number] [place] [address]- 9827 December, [facility] [place] [facility] [address] [id number] [place] [address]- 1485 Sep, [facility] [place] [facility] [address] [id number] [place] [address]- 1069 Sep, [facility] [place] [facility] [address] [id number] [place] [address]- 2767 Aug, [facility] [place] [facility] [address] [id number] [place] [address]- 7271 Aug, [facility] [place] [facility] [address] [id number] [place] [address]- 5723 Jun, [facility] [place] [facility] [address] [id number] [place] [address]- 0910 Jun, [facility] [place] [facility] [address] [id number] [place] [address]- 5417 May, [facility] [place] [facility] [address] [id number] [place] [address]- 3470 May, [facility] [place] [facility] [address] [id number] [place] [address]- 8664 May, [facility] [place] [facility] [address] [id number] [place] [address]- 3815 Feb, [facility] [place] [facility] [address] [id number] [place] [address]- 5470 Jan, [facility] [place] [facility] [address] [id number] [place] [address] Jan, [facility] [place] [facility] [address] [id number] [place] [address] Jan, [facility] [place] [facility] [address] [id number] [place] [address] Nov, [facility] [place] [facility] [address] [id number] [place] [address] Sep, [facility] [place] [facility] [address] [id number] [place] [address] Aug, [facility] [place] [facility] [address] [id number] [place] [address] Jul, [facility] [place] [facility] [address] [id number] [place] [address] Jul, [facility] [place] [facility] [address] [id number] [place] [address] Jul, [facility] [place] [facility] [address] [id number] [place] [address] Jul, [facility] [place] [facility] [address] [id number] [place] [address] Jul, [facility] [place] [facility] [address] [id number] [place] [address] Jul, [facility] [place] [facility] [address] [id number] [place] [address] Jun, [facility] [place] [facility] [address] [id number] [place] [address] Jun, [facility] [place] [facility] [address] [id number] [place] [address] Jun, [facility] [place] [facility] [address] [id number] [place] [address] Jun, [facility] [place] [facility] [address] [id number] [place] [address] Feb, [facility] [place] [facility] [address] [id number] [place] [address] Jan, [facility] [place] [facility] [address] [id number] [place] [address] Jan, [facility] [place] [facility] [address] [id number] [place] [address] Feb, [facility] [place] [facility] [address] [facility] [id number] [place] [address] Jan, 2011 IMMUNIZATIONS No Known Immunizations [...]
--- OUTSIDE RECORDS SUMMARY | 2018-10-08 14:34 | XMS REPORT ---
Author Author GORDON SALMON Organization [employer] Address Unknown Phone Unavailable Care Team Providers Care Security Control Room Officer Name Role Phone GORDON SALMON CP Unavailable Allergies No Known Allergies Problems Problem Type Condition Code Onset Dates Condition Status Problem Other malaise and fatigue 780.79 Active Problem Other abnormal glucose 790.29 Active Problem Chronic pain 338.29 Active Problem Impotence of organic origin 607.84 Active Medications Medication Code System Code Instructions Start Date End Date Status Dosage Tramadol HCl [facility] [place] [address]-52 50 MG Orally every 6 hrs 1 tablet as needed Results No Known Results Summary Purpose [employer] Submission
--- OUTSIDE RECORDS SUMMARY | 2018-10-08 14:34 | XMS REPORT ---
Author Author GORDON SALMON Organization [facility] Address [address] [place] [address] Care Team Providers Care Mill Labor Supervisor Name Role Phone GORDON SALMON Unavailable PROBLEMS Type Condition ICD9-CM Code FTY29-TT Code Onset Dates Condition Status SNOMED Code Problem Eosinophilia D72.1 Active 674856797 Problem Other chronic pain G89.29 Active 12587747 Problem Low back pain M54.5 Active 256785328 Problem Damian''s esophagus without dysplasia K22.70 Active 560167583 Problem Mixed hyperlipidemia E78.2 Active 049298947 Problem Erectile dysfunction, unspecified erectile dysfunction type N52.9 Active 679946370 Problem Moderate episode of recurrent major depressive disorder F33.1 Active 516527660 Problem Anxiety, generalized F41.1 Active 24591069 Problem Paranoid ideation F22 Active 038436700 Problem Arthritis M19.90 Active 3929100 Problem Chronic fatigue R53.82 Active 15740597 ALLERGIES No Information ENCOUNTERS Encounter Location Date Diagnosis [place] [id number] [place] [address] 07725- 8650 Oct, Other chronic pain G89.29 [place] [id number] [place] [address] 46548- 5536 Sep, Moderate episode of recurrent major depressive disorder F33.1 ; GERD with esophagitis K21.0 ; Erectile dysfunction, unspecified erectile dysfunction type N52.9 ; Other chronic pain G89.29 ; Damian''s esophagus without dysplasia K22.70 and Mixed hyperlipidemia E78.2 [place] [id number] [place] [address] 03695- 2512 Sep, Low back pain M54.5 [facility] [id number] [place] [address] 18136- 8582 Aug, GERD with esophagitis K21.0 ; Reactive depression F32.9 ; Chronic fatigue R53.82 ; Arthritis M19.90 ; Other chronic pain G89.29 and Low back pain M54.5 [place] [id number] [place] [address] 43583- 8084 Jul, Encounter to establish care with new doctor Z76.89 [place] [id number] [place] [address] 12431- 9266 Jun, Other chronic pain G89.29 [place] [address] 62567- 8433 Jun, Other chronic pain G89.29 [place] [address] 22180- 3322 May, GERD with esophagitis K21.0 and Other chronic pain G89.29 [place] [address] 46937- 6049 Apr, Low back pain M54.5 [place] [id number] [place] [address] 49161- 1724 Apr, Reactive depression F32.9 [place] [address] 10997- 8780 Mar, Encounter to establish care with new doctor Z76.89 ; Weight loss, unintentional R63.4 ; Moderate episode of recurrent major depressive disorder F33.1 ; Chronic fatigue R53.82 ; Low back pain M54.5 ; Arthritis M19.90 ; Controlled substance agreement signed Z79.899 and High risk medication use Z79.899 [place] [id number] [place] [address] 33914- 8447 Mar, Low back pain M54.5 [place] [id number] [place] [address] 08458- 5066 Mar, Reactive depression F32.9 ; Paranoid ideation F22 and Anxiety, generalized F41.1 [place] [id number] [place] [address] 58148- 9281 Mar, [facility] [id number] [place] [address] 70918- 7238 Feb, [facility] [id number] [place] [address] 74976- 2134 Feb, [facility] [id number] [place] [address] 35807- 9477 Feb, Epigastric pain R10.13 ; Weight loss R63.4 and Eustachian tube dysfunction, left H69.82 [facility] [id number] [place] [address] 02622- 0837 Jan, Reactive depression F32.9 and Low back pain M54.5 [place] [id number] [place] [address] 91713- 5703 Sep, Reactive depression F32.9 and Irritable bowel syndrome without diarrhea K58.9 [place] [id number] [place] [address] 10786- 7545 Aug, [facility] [id number] [place] [address] 10202- 6757 May, [facility] [id number] [place] [address] 13877- 4855 May, [facility] [id number] [place] [address] 21618- 9820 Mar, [facility] [id number] [place] [address] 28801- 5893 Mar, Leukocytosis, unspecified type D72.829 [facility] [id number] [place] [address] 08383- 4864 Mar, Leukocytosis, unspecified type D72.829 [facility] [address] [address]- 4290 Feb, Weight loss R63.4 ; Syncope, unspecified syncope type R55 ; Low back pain M54.5 ; Other chronic pain G89.29 and Reactive depression F32.9 [facility] [id number] [place] [address] 05798- 8199 30 Jul, 2015 [facility] [id number] [place] [address] 20298- 2841 May, Arthritis M19.90 [facility] [id number] [place] [address] 13704- 4305 Apr, Chronic pain 338.29 [facility] [id number] [place] [address] 90955 2544 Apr, Anxiety state, unspecified 300.00 [facility] [id number] [place] [address] 96666- 4754 17 Jan, 2015 Anxiety state, unspecified 300.00 [facility] [id number] [place] [address] 26855- 3659 15 Jan, 2015 Chronic pain 338.29 and Anxiety state, unspecified 300.00 [facility] [id number] [place] [address] 52757- 8957 12 Jan, 2015 [facility] [id number] [place] [address] 53317- 8765 14 Nov, 2014 [facility] [address] [place] [address] 09260- 3145 Nov, [facility] [id number] [place] [address] 79160- 0756 Oct, [facility] [id number] [place] [address] 87638- 7711 Oct, [facility] [id number] [place] [address] 96859- 5130 Oct, [facility] [address] [place] [address] 23524- 2371 13 Oct, 2014 [facility] [id number] [place] [address] 60688- 8699 Sep, [facility] [place] [facility] [address] [id number] [place] [address]- 4887 Sep, [facility] [place] [facility] [address] [id number] [place] [address]- 4107 Sep, [facility] [place] [facility] [address] [facility] [id number] [place] [address]- 9958 Sep, [facility] [place] [facility] [address] [id number] [place] [address]- 5950 May, [facility] [place] [facility] [address] [id number] [place] [address]- 0519 May, [facility] [place] [facility] [address] [id number] [place] [address]- 7940 Apr, [facility] [place] [facility] [address] [id number] [place] [address]- 5495 Apr, [facility] [place] [facility] [address] [id number] [place] [address]- 6411 Jan, [facility] [place] [facility] [address] [id number] [place] [address]- 7685 Jan, [facility] [place] [facility] [address] [id number] [place] [address]- 1978 Jan, [facility] [place] [facility] [address] [id number], [place] [address]- 6643 Jan, [facility] [place] [facility] [address] [id number], [place] [address]- 1589 Jan, [facility] [place] [facility] [address] [id number] [place] [address]- 2666 December, [facility] [place] [facility] [address] [id number] [place] [address]- 7322 December, [facility] [place] [facility] [address] [facility] [id number] [place] [address]- 9978 Sep, [facility] [place] [facility] [address] [id number] [place] [address]- 2546 Sep, [facility] [address] [id number] [place] [address]- 2266 Aug, [facility] [place] [facility] [address] [id number] [place] [address]- 2546 Aug, [facility] [address] [id number] [place] [address]- 2546 Jun, [facility] [place] [facility] [address] [id number] [place] [address]- 2546 Jun, [facility] [address] [id number] [place] [address]- 7896 May, [facility] [place] [facility] [address] [id number] [place] [address]- 4116 May, [facility] [place] [facility] [address] [id number] [place] [address] 2546 May, [facility] [address] [id number] [place] [address]- 8541 Feb, [facility] [place] [facility] [address] [id number] [place] [address]- 1446 Jan, [facility] [address] [id number] [place] [address] 2546 Jan, [facility] [place] [facility] [address] [id number] [place] [address]- 2546 Jan, [facility] [place] [facility] [address] [id number] [place] [address]- 2546 Nov, [facility] [place] [facility] [address] [id number] [place] [address]- 2546 Sep, [facility] [place] [facility] [address] [id number] [place] [address]- 2546 Aug, [facility] [place] [facility] [address] [id number] [place] [address] 3786 Jul, [facility] [address], [place] [address]- 6517 Jul, [facility] [address], [place] [address]- 5549 Jul, [facility] [address], [place] [address]- 8420 Jul, [facility] [address], [place] [address]- 3030 Jul, [facility] [id number] [address]- 8576 Jul, [facility] [address], [place] [address]- 5223 Jun, [facility] [address], [place] [address]- 2919 Jun, [facility] [address], [place] [address]- 0012 Jun, [facility] [address], [place] [address]- 1869 Jun, [facility] [address], [place] [address]- 9866 Feb, [facility] [address], [place] [address]- 7023 Jan, [facility] [address], [place] [address]- 8735 Jan, [facility] [id number], [place] [address]- 6575 Feb, [facility] [address], [place] [address]- 7057 Jan, IMMUNIZATIONS No Known Immunizations SOCIAL HISTORY Never Assessed REASON FOR VISIT Medication question PLAN OF CARE VITAL SIGNS MEDICATIONS Unknown [...]
--- OUTSIDE RECORDS SUMMARY | 2018-10-08 14:34 | XMS REPORT ---
Author Author LISA SIMEON Organization [facility] Address [address] [place] [address] Care Team Providers Care Instrument Repair Technician Name Role Phone LISA SIMEON Unavailable PROBLEMS Type Condition ICD9-CM Code SGK81-EM Code Onset Dates Condition Status SNOMED Code Problem Eosinophilia D72.1 Active 539559907 Problem Other chronic pain G89.29 Active 77611625 Problem Low back pain M54.5 Active 626465397 Problem Damian''s esophagus without dysplasia K22.70 Active 405239530 Problem Mixed hyperlipidemia E78.2 Active 729462159 Problem Erectile dysfunction, unspecified erectile dysfunction type N52.9 Active 893920198 Problem Moderate episode of recurrent major depressive disorder F33.1 Active 493158345 Problem Anxiety, generalized F41.1 Active 32432591 Problem Paranoid ideation F22 Active 082404314 Problem Arthritis M19.90 Active 8622025 Problem Chronic fatigue R53.82 Active 41282226 ALLERGIES No Information ENCOUNTERS Encounter Location Date Diagnosis [place] [id number] [place] [address] 89189- 0336 Oct, Other chronic pain G89.29 [facility] [id number] [place] [address] 98229- 5661 Sep, Moderate episode of recurrent major depressive disorder F33.1 ; GERD with esophagitis K21.0 ; Erectile dysfunction, unspecified erectile dysfunction type N52.9 ; Other chronic pain G89.29 ; Damian''s esophagus without dysplasia K22.70 and Mixed hyperlipidemia E78.2 [facility] [id number] [place] [address] 20177- 7856 Sep, Low back pain M54.5 [facility] [id number] [place] [address] 84740- 7863 Aug, GERD with esophagitis K21.0 ; Reactive depression F32.9 ; Chronic fatigue R53.82 ; Arthritis M19.90 ; Other chronic pain G89.29 and Low back pain M54.5 [place] [id number] [place] [address] 33989- 6856 Jul, Encounter to establish care with new doctor Z76.89 [place] [id number] [place] [address] 92578- 0322 Jun, Other chronic pain G89.29 [place] [address] 82616- 3614 Jun, Other chronic pain G89.29 [place] [address] 31008- 6990 May, GERD with esophagitis K21.0 and Other chronic pain G89.29 [place] [address] 37690- 2520 Apr, Low back pain M54.5 [place] [id number] [place] [address] 29913- 6877 Apr, Reactive depression F32.9 [place] [address] 94491- 1939 Mar, Encounter to establish care with new doctor Z76.89 ; Weight loss, unintentional R63.4 ; Moderate episode of recurrent major depressive disorder F33.1 ; Chronic fatigue R53.82 ; Low back pain M54.5 ; Arthritis M19.90 ; Controlled substance agreement signed Z79.899 and High risk medication use Z79.899 [place] [id number] [place] [address] 98319- 3783 Mar, Low back pain M54.5 [place] [id number] [place] [address] 63543- 1827 Mar, Reactive depression F32.9 ; Paranoid ideation F22 and Anxiety, generalized F41.1 [place] [address] [place] [address] 78870- 2068 Mar, [facility] [address] [place] [address] 55132- 7122 Feb, [facility] [id number] [place] [address] 77546- 8844 Feb, [facility] [id number] [place] [address] 20560- 6959 Feb, Epigastric pain R10.13 ; Weight loss R63.4 and Eustachian tube dysfunction, left H69.82 [facility] [id number] [place] [address] 13435- 0834 Jan, Reactive depression F32.9 and Low back pain M54.5 [place] [address] [place] [address] 79905- 4052 Sep, Reactive depression F32.9 and Irritable bowel syndrome without diarrhea K58.9 [place] [id number] [place] [address] 83603- 8883 Aug, [facility] [address] [place] [address] 53004- 6799 May, [facility] [id number] [place] [address] 69197- 7460 May, [facility] [address] [place] [address] 78030- 4732 Mar, [facility] [id number] [place] [address] 45125- 3056 Mar, Leukocytosis, unspecified type D72.829 [facility] [id number] [place] [address] 03054- 6872 Mar, Leukocytosis, unspecified type D72.829 [facility] [address] [address]- 4660 Feb, Weight loss R63.4 ; Syncope, unspecified syncope type R55 ; Low back pain M54.5 ; Other chronic pain G89.29 and Reactive depression F32.9 [facility] [id number] [place] [address] 55467- 7230 30 Jul, 2015 [facility] [id number] [place] [address] 92961- 8613 May, Arthritis M19.90 [facility] [id number] [place] [address] 01823- 2601 Apr, Chronic pain 338.29 [facility] [id number] [place] [address] 34687 2547 Apr, Anxiety state, unspecified 300.00 [facility] [id number] [place] [address] 71397- 3175 17 Jan, 2015 Anxiety state, unspecified 300.00 [facility] [id number] [place] [address] 28408- 0272 15 Jan, 2015 Chronic pain 338.29 and Anxiety state, unspecified 300.00 [facility] [id number] [place] [address] 23895- 5837 12 Jan, 2015 [facility] [id number] [place] [address] 29301- 4303 14 Nov, 2014 [facility] [address] [place] [address] 19047- 9351 Nov, [facility] [id number] [place] [address] 21559- 1902 Oct, [facility] [id number] [place] [address] 04084- 2645 Oct, [facility] [id number] [place] [address] 16127- 9946 Oct, [facility] [address] [place] [address] 56905- 8830 13 Oct, 2014 [facility] [id number] [place] [address] 24087- 2528 Sep, [facility] [place] [facility] [address] [id number] [place] [address]- 9209 Sep, [facility] [place] [facility] [address] [id number] [place] [address]- 6768 Sep, [facility] [place] [facility] [address] [facility] [id number] [place] [address]- 4530 Sep, [facility] [place] [facility] [address] [id number] [place] [address]- 9031 May, [facility] [place] [facility] [address] [id number] [place] [address]- 6834 May, [facility] [place] [facility] [address] [id number] [place] [address]- 4166 Apr, [facility] [place] [facility] [address] [id number] [place] [address]- 6215 Apr, [facility] [place] [facility] [address] [id number] [place] [address]- 4514 Jan, [facility] [place] [facility] [address] [id number] [place] [address]- 9371 Jan, [facility] [place] [facility] [address] [id number] [place] [address]- 1224 Jan, [facility] [place] [facility] [address] [id number], [place] [address]- 8772 Jan, [facility] [place] [facility] [address] [id number], [place] [address]- 4632 Jan, [facility] [place] [facility] [address] [id number] [place] [address]- 3052 December, [facility] [place] [facility] [address] [id number] [place] [address]- 7296 December, [facility] [place] [facility] [address] [facility] [id number] [place] [address]- 8199 Sep, [facility] [place] [facility] [address] [id number] [place] [address]- 2546 Sep, [facility] [address] [id number] [place] [address]- 6386 Aug, [facility] [place] [facility] [address] [id number] [place] [address]- 2546 Aug, [facility] [address] [id number] [place] [address]- 2546 Jun, [facility] [place] [facility] [address] [id number] [place] [address]- 2546 Jun, [facility] [address] [id number] [place] [address]- 3726 May, [facility] [place] [facility] [address] [id number] [place] [address]- 2776 May, [facility] [place] [facility] [address] [id number] [place] [address] 2546 May, [facility] [address] [id number] [place] [address]- 4491 Feb, [facility] [place] [facility] [address] [id number] [place] [address]- 9116 Jan, [facility] [address] [id number] [place] [address] 2546 Jan, [facility] [place] [facility] [address] [id number] [place] [address]- 2546 Jan, [facility] [place] [facility] [address] [id number] [place] [address] Nov, [facility] [place] [facility] [address] [id number] [place] [address] Sep, [facility] [place] [facility] [address] [id number] [place] [address] Aug, [facility] [place] [facility] [address] [id number] [place] [address] Jul, [facility] [address] [facility] [id number], [place] [address] Jul, [facility] [address] [facility] [id number], [place] [address] Jul, [facility] [address] [facility] [id number], [place] [address] Jul, [facility] [address] [facility] [id number], [place] [address] Jul, [facility] [address] [facility] [id number], [place] [address] Jul, [facility] [address] [facility] [id number], [place] [address] Jun, [facility] [id number], [place] [address] Jun, [facility] [id number], [place] [address] Jun, [facility] [id number], [place] [address] Jun, [facility] [id number], [place] [address] Feb, [facility] [id number], [place] [address] Jan, [facility] [address] [id number], [place] [address] Jan, [facility] [address] [id number], [place] [address] Feb, [facility] [id number] [id number] Jan, IMMUNIZATIONS No Known Immunizations SOCIAL HISTORY Never Assessed REASON FOR VISIT Medication refill request PLAN OF CARE VITAL SIGNS MEDICATIONS Medication Instructions Dosage Frequency Start Date End Date Duration Status Seroquel 100 mg Orally Once a day, hs 1 tablet 08 Jan, 2017 30 day(s ) Active RESULTS No Results PROCEDURES No Known [...]
--- OUTSIDE RECORDS SUMMARY | 2018-10-08 14:35 | XMS REPORT | Continuity of Care Document ---
Author Author [facility] Address Unknown Phone Unavailable Allergies Active Description Code Type Severity Reaction Onset Reported/Identified Relationship to Patient Clinical Status Yes NO KNOWN DRUG ALLERGIES UNKNOWN NO KNOWN DRUG ALLERG Yes morphine [id number] Drug Allergy Unknown NAUSEA 06/21/2016 Yes morphine [id number] Drug Allergy Mild NAUSEA 10/04/2018 Medications There is no data. Problems Date Dx Coded Attending Type Code Diagnosis Diagnosed By 02/09/2011 789.00 ABDOMINAL PAIN UNSPECIFIED SITE 02/09/2011 LUIS ANTONIO LOWERY, GORDON 789.00 ABDOMINAL PAIN UNSPECIFIED SITE 02/09/2011 789.00 ABDOMINAL PAIN UNSPECIFIED SITE 02/09/2011 789.00 ABDOMINAL PAIN UNSPECIFIED SITE 02/09/2011 789.00 ABDOMINAL PAIN UNSPECIFIED SITE 02/09/2011 789.00 ABDOMINAL PAIN UNSPECIFIED SITE 02/09/2011 LUIS ANTONIO LOWERY, GORDON 789.00 ABDOMINAL PAIN UNSPECIFIED SITE 02/09/2011 LUIS ANTONIO LOWERY, GORDON 789.00 ABDOMINAL PAIN UNSPECIFIED SITE 02/09/2011 LUIS ANTONIO LOWERY, GORDON 789.00 ABDOMINAL PAIN UNSPECIFIED SITE 02/09/2011 LUIS ANTONIO LOWERY, GORDON 789.00 ABDOMINAL PAIN UNSPECIFIED SITE 02/09/2011 LUIS ANTONIO LOWERY, GORDON 789.00 ABDOMINAL PAIN UNSPECIFIED SITE 02/09/2011 LUIS ANTONIO LOWERY, GORDON 789.00 ABDOMINAL PAIN UNSPECIFIED SITE 02/09/2011 LUIS ANTONIO LOWERY, GORDON 789.00 ABDOMINAL PAIN UNSPECIFIED SITE 02/09/2011 SAVITA SEVERINO 789.00 ABDOMINAL PAIN UNSPECIFIED SITE 03/09/2011 604.90 ORCHITIS AND EPIDIDYMITIS UNSPECIFIED 03/09/2011 GORDON SALMON MD 604.90 Orchitis And Epididymitis Unspecified 03/09/2011 604.90 Orchitis And Epididymitis Unspecified 03/09/2011 604.90 Orchitis And Epididymitis Unspecified 03/09/2011 604.90 Orchitis And Epididymitis Unspecified 03/09/2011 604.90 Orchitis And Epididymitis Unspecified 03/09/2011 GORDON SALMON MD 604.90 Orchitis And Epididymitis Unspecified 03/09/2011 LUIS ANTONIO LOWERY, GODRON 604.90 Orchitis And Epididymitis Unspecified 03/09/2011 LUIS ANTONIO LOWERY, GORDON 604.90 Orchitis And Epididymitis Unspecified 03/09/2011 GORDON SALMON MD 604.90 Orchitis And Epididymitis Unspecified 03/09/2011 LUIS ANTONIO LOWERY, GORDON 604.90 Orchitis And Epididymitis Unspecified 03/09/2011 LUIS ANTONIO LOWERY, GORDON 604.90 ORCHITIS AND EPIDIDYMITIS UNSPECIFIED 03/09/2011 LUIS ANTONIO LOWERY, GORDON 604.90 Orchitis And Epididymitis Unspecified 03/09/2011 SAVITA SEVERINO 604.90 Orchitis And Epididymitis Unspecified 04/20/2011 Ot 486 PNEUMONIA, ORGANISM NOS 04/20/2011 Ot 599.0 URIN TRACT INFECTION NOS 04/20/2011 Ot 786.59 CHEST PAIN NEC 01/27/2012 Ot 112.84 CANDIDIASIS OF THE ESOPHAGUS 01/27/2012 Ot 300.00 ANXIETY STATE NOS 01/27/2012 Ot 305.1 TOBACCO USE DISORDER 01/27/2012 Ot 311 DEPRESSIVE DISORDER NEC 01/27/2012 Ot 530.81 ESOPHAGEAL REFLUX 01/27/2012 Ot 535.50 UNSP GASTRITIS GASTRODUODENITIS W/O ME 01/27/2012 Ot 537.3 DUODENAL OBSTRUCTION NEC 01/27/2012 Ot 557.1 CHR VASC INSUFF INTEST 01/27/2012 Ot 780.52 INSOMNIA, UNSPECIFIED 01/27/2012 Ot V12.71 PERSONAL HISTORY OF PEPTIC ULCER DISEASE 02/13/2012 Ot 300.00 ANXIETY STATE NOS 02/13/2012 Ot 305.1 TOBACCO USE DISORDER 02/13/2012 Ot 311 DEPRESSIVE DISORDER NEC 02/13/2012 Ot 536.2 PERSISTENT VOMITING 02/13/2012 Ot 789.00 ABDOMINAL PAIN, UNSPECIFIED SITE 02/16/2012 783.21 ABNORMAL WEIGHT LOSS 02/16/2012 GORDON SALMON MD 783.21 ABNORMAL WEIGHT LOSS 02/16/2012 783.21 ABNORMAL WEIGHT LOSS 02/16/2012 783.21 ABNORMAL WEIGHT LOSS 02/16/2012 783.21 ABNORMAL WEIGHT LOSS 02/16/2012 783.21 ABNORMAL WEIGHT LOSS 02/16/2012 GORDON SALMON MD 783.21 ABNORMAL WEIGHT LOSS 02/16/2012 GORDON SALMON MD 783.21 ABNORMAL WEIGHT LOSS 02/16/2012 GORDON SALMON MD 783.21 ABNORMAL WEIGHT LOSS 02/16/2012 GORDON SALMON MD 783.21 ABNORMAL WEIGHT LOSS 02/16/2012 GORDON SALMON MD 783.21 ABNORMAL WEIGHT LOSS 02/16/2012 GORDON SALMON MD 783.21 ABNORMAL WEIGHT LOSS 02/16/2012 GORDON SALMON MD 783.21 ABNORMAL WEIGHT LOSS 02/16/2012 SAVITA SEVERINO 783.21 ABNORMAL WEIGHT LOSS 03/07/2012 Ot 789.07 ABDOMINAL PAIN, GENERALIZED 05/27/2012 Ot 041.49 OTHER AND UNSPECIFIED ESCHERICHIA COLI [ 05/27/2012 Ot 276.8 HYPOPOTASSEMIA 05/27/2012 Ot 557.1 CHR VASC INSUFF INTEST 05/27/2012 Ot 599.0 URIN TRACT INFECTION NOS 06/17/2012 Ot 599.0 URIN TRACT INFECTION NOS 06/17/2012 Ot V55.6 ATTEN TO URINOSTOMY NEC 01/28/2013 285.9 ANEMIA UNSPECIFIED 01/28/2013 285.9 ANEMIA UNSPECIFIED 01/28/2013 GORDON SALMON MD 285.9 ANEMIA UNSPECIFIED 01/28/2013 GORDON SALMON MD 285.9 ANEMIA UNSPECIFIED 01/28/2013 GORDON SALMON MD 285.9 ANEMIA UNSPECIFIED 01/28/2013 GORDON SALMON MD 285.9 ANEMIA UNSPECIFIED 01/28/2013 GORDON SALMON MD 285.9 ANEMIA UNSPECIFIED 01/28/2013 GORDON SALMON MD 285.9 ANEMIA UNSPECIFIED 01/28/2013 SAVITA SEVERINO 285.9 ANEMIA UNSPECIFIED 02/21/2013 787.03 VOMITING ALONE 02/21/2013 GORDON SALMON MD 787.03 VOMITING ALONE 02/21/2013 GORDON SALMON MD 787.03 VOMITING ALONE 02/21/2013 GORDON SALMON MD 787.03 VOMITING ALONE 02/21/2013 GORDON SALMON MD 787.03 VOMITING ALONE 02/21/2013 GORDON SALMON MD 787.03 VOMITING ALONE 02/21/2013 GORDON SALMON MD 787.03 VOMITING ALONE 02/21/2013 SAVITA SEVERINO 787.03 VOMITING ALONE 03/11/2013 GORDON SALMON MD 790.29 OTHER ABNORMAL GLUCOSE 03/11/2013 GORDON SALMON MD 790.29 OTHER ABNORMAL GLUCOSE 03/11/2013 GORDON SALMON MD 790.29 OTHER ABNORMAL GLUCOSE 03/11/2013 GORDON SALMON MD 790.29 OTHER ABNORMAL GLUCOSE 03/11/2013 GORDON SALMON MD 790.29 OTHER ABNORMAL GLUCOSE 03/11/2013 GORDON SALMON MD 790.29 OTHER ABNORMAL GLUCOSE 03/11/2013 SAVITA SEVERINO 790.29 OTHER ABNORMAL GLUCOSE 06/13/2013 GORDON SALMON MD 607.84 IMPOTENCE OF ORGANIC ORIGIN 06/13/2013 GORDON SALMON MD 607.84 IMPOTENCE OF ORGANIC ORIGIN 06/13/2013 GORDON SALMON MD 607.84 IMPOTENCE OF ORGANIC ORIGIN 06/13/2013 GORDON SALMON MD 607.84 IMPOTENCE OF ORGANIC ORIGIN 06/13/2013 GORDON SALMON MD 607.84 IMPOTENCE OF ORGANIC ORIGIN 06/13/2013 SAVITA SEVERINO 607.84 IMPOTENCE OF ORGANIC ORIGIN 06/19/2014 GORDON SALMON MD V04.81 FLU SHOT 06/19/2014 GORDON SALMON MD V04.81 FLU SHOT 06/19/2014 SAVITA SEVERINO V04.81 FLU SHOT 10/08/2014 GORDON SALMON MD 300.00 ANXIETY STATE UNSPECIFIED 10/08/2014 GORDON SALMON MD 780.79 OTHER MALAISE AND FATIGUE 10/08/2014 SAVITA SEVERINO 300.00 ANXIETY STATE UNSPECIFIED 10/08/2014 SAVITA SEVERINO 780.79 OTHER MALAISE AND FATIGUE 11/06/2014 SAVITA SEVERINO 296.33 MO DEPRESSIVE RECURRENT SEVERE W/O PSYCHOTIC BEHAVIOR 11/06/2014 SAVITA SEVERINO 300.02 AN GEN ANXIETY 06/21/2016 Ot 783.21 LOSS OF WEIGHT 06/21/2016 Ot 789.00 ABDOMINAL PAIN, UNSPECIFIED SITE 06/21/2016 ROBERT ZHANG APRN Ot F17.210 NICOTINE DEPENDENCE, CIGARETTES, UNCOMPL 06/21/2016 ROBERT ZHANG APRN Ot J43.9 EMPHYSEMA, UNSPECIFIED 06/21/2016 ROBERT ZHANG APRN Ot N32.89 OTHER SPECIFIED DISORDERS OF BLADDER 06/21/2016 ROBERT ZHANG APRN Ot R11.10 VOMITING, UNSPECIFIED 06/21/2016 ROBERT ZHANG APRN Ot T18.128A FOOD IN ESOPHAGUS CAUSING OTHER INJURY, 06/22/2016 ROBERT ZHANG ENTRANCE GUARD Ot F17.210 NICOTINE DEPENDENCE, CIGARETTES, UNCOMPL 06/22/2016 ROBERT ZHANG APRN Ot J43.9 EMPHYSEMA, UNSPECIFIED 06/22/2016 ROBERT ZHANG APRN Ot N32.89 OTHER SPECIFIED DISORDERS OF BLADDER 06/22/2016 ROBERT ZHANG APRN Ot R11.10 VOMITING, UNSPECIFIED 06/22/2016 ROBERT ZHANG APRN Ot T18.128A FOOD IN ESOPHAGUS CAUSING OTHER INJURY, 06/29/2016 ROBERT ZHANG APRN Ot F17.210 NICOTINE DEPENDENCE, CIGARETTES, UNCOMPL 06/29/2016 ROBERT ZHANG APRN Ot J43.9 EMPHYSEMA, UNSPECIFIED 06/29/2016 ROBERT ZHANG APRN Ot N32.89 OTHER SPECIFIED DISORDERS OF BLADDER 06/29/2016 ROBERT ZHANG APRN Ot R11.10 VOMITING, UNSPECIFIED 06/29/2016 ROBERT ZHANG APRN Ot T18.128A FOOD IN ESOPHAGUS CAUSING OTHER INJURY, 07/03/2017 JEFFREY RICHMOND DO Ot K21.9 GASTRO-ESOPHAGEAL REFLUX DISEASE WITHOUT 07/03/2017 JEFFREY RICHMOND DO Ot K92.1 MELENA 07/03/2017 JEFFREY RICHMOND DO Ot R10.84 GENERALIZED ABDOMINAL PAIN 07/03/2017 JEFFREY RICHMOND DO Ot Z01.818 ENCOUNTER FOR OTHER PREPROCEDURAL EXAMIN 07/10/2017 JEFFREY RICHMOND DO Ot F17.210 NICOTINE DEPENDENCE, CIGARETTES, UNCOMPL 07/10/2017 JEFFREY RICHMOND DO Ot K21.9 GASTRO-ESOPHAGEAL REFLUX DISEASE WITHOUT 07/10/2017 JEFFREY RICHMOND DO Ot K25.9 GASTRIC ULCER, UNSP ACUTE OR CHRONIC, 07/10/2017 JEFFREY RICHMOND DO Ot K44.9 DIAPHRAGMATIC HERNIA WITHOUT OBSTRUCTION 07/10/2017 JEFFREY RICHMOND DO Ot K92.1 MELENA 10/07/2018 JEFFREY RICHMOND DO Ot Z01.818 ENCOUNTER FOR OTHER PREPROCEDURAL EXAMIN Procedures Code Description Performed By Performed On 45.16 01/23/2012 53129 ROUTINE VENIPUNCTURE 07/01/2012 92356 CBC 07/01/2012 10613 CMP 07/01/2012 5468632 GFR CALC (RESULT ONLY) 07/01/2012 79583 URINE DRUG SCREEN (IN-HOUSE ) 08/05/2012 99199 ROUTINE VENIPUNCTURE 01/28/2013 11546 URINE DRUG SCREEN (IN-HOUSE ) 01/28/2013 04335 CBC 01/28/2013 82502 CMP 01/28/2013 2088861 GFR CALC (RESULT ONLY) 01/28/2013 67199 ROUTINE VENIPUNCTURE 01/29/2014 7908759 GFR CALC (RESULT ONLY) 01/30/2014 45345 CMP 01/30/2014 64515 ROUTINE VENIPUNCTURE 10/08/2014 83422 CBC 10/08/2014 67231 CMP 10/08/2014 1829269 GFR CALC (RESULT ONLY) 10/08/2014 43149 TSH 10/08/2014 52340 PSYCH DIAG EVAL W/MED SRVCS 12/07/2014 Results Test Result Range Complete blood count (CBC) with automated white blood cell (WBC) differential - 06/21/16 15:30 Blood leukocytes automated count (number/volume) 11.0 10*3/uL 4.3-11.0 Blood erythrocytes automated count (number/volume) 4.94 10*6/uL 4.35-5.85 Venous blood hemoglobin measurement (mass/volume) 14.7 g/dL 13.3-17.7 Blood hematocrit (volume fraction) 43 % 40-54 Automated erythrocyte mean corpuscular volume 88 [foz_us] 80-99 Automated erythrocyte mean corpuscular hemoglobin (mass per erythrocyte) 30 pg 25-34 Automated erythrocyte mean corpuscular hemoglobin concentration measurement ( mass/volume) 34 g/dL 32-36 Automated erythrocyte distribution width ratio 13.9 % 10.0-14.5 Automated blood platelet count (count/volume) 401 10*3/uL 130-400 Automated blood platelet mean volume measurement 9.7 [foz_us] 7.4-10.4 Automated blood neutrophils/100 leukocytes 56 % 42-75 Automated blood lymphocytes/100 leukocytes 27 % 12-44 Blood monocytes/100 leukocytes 10 % 0-12 Automated blood eosinophils/100 leukocytes 6 % 0-10 Automated blood basophils/100 leukocytes 1 % 0-10 Blood neutrophils automated count (number/volume) 6.2 10*3 1.8-7.8 Blood lymphocytes automated count (number/volume) 3.0 10*3 1.0-4.0 Blood monocytes automated count (number/volume) 1.1 10*3 0.0-1.0 Automated eosinophil count 0.6 10*3/uL 0.0-0.3 Automated blood basophil count (count/volume) 0.1 10*3/uL 0.0-0.1 Comprehensive metabolic panel - 06/21/16 15:30 Serum or plasma sodium measurement (moles/volume) 143 mmol/L 135-145 Serum or plasma potassium measurement (moles/volume) 4.4 mmol/L 3.6-5.0 Serum or plasma chloride measurement (moles/volume) 109 mmol/L 98-107 Carbon dioxide 21 mmol/L 21-32 Serum or plasma anion gap determination (moles/volume) 13 mmol/L 5-14 Serum or plasma urea nitrogen measurement (mass/volume) 16 mg/dL 7-18 Serum or plasma creatinine measurement (mass/volume) 0.89 mg/dL 0.60-1.30 Serum or plasma urea nitrogen/creatinine mass ratio 18 NRG Serum or plasma creatinine measurement with calculation of estimated glomerular filtration rate > NRG Serum or plasma glucose measurement (mass/volume) 76 mg/dL 70-105 Serum or plasma calcium measurement (mass/volume) 9.8 mg/dL 8.5-10.1 Serum or plasma total bilirubin measurement (mass/volume) 0.5 mg/dL 0.1-1.0 Serum or plasma alkaline phosphatase measurement (enzymatic activity/volume) 87 U/L 40-136 Serum or plasma aspartate aminotransferase measurement (enzymatic activity/ volume) 16 U/L 5-34 Serum or plasma alanine aminotransferase measurement (enzymatic activity/volume ) 11 U/L 0-55 Serum or plasma protein measurement (mass/volume) 7.9 g/dL 6.4-8.2 Serum or plasma albumin measurement (mass/volume) 4.5 g/dL 3.2-4.5 CBC With Differential/Platelet - 03/01/17 11:24 WBC 11.7 x10E3/uL 3.4-10.8 RBC 4.46 x10E6/uL 4.14-5.80 Hemoglobin 13.5 g/dL 12.6-17.7 Hematocrit 39.8 % 37.5-51.0 MCV 89 fL 79-97 MCH 30.3 pg 26.6-33.0 MCHC 33.9 g/dL 31.5-35.7 RDW 12.7 % 12.3-15.4 Platelets 536 x10E3/uL 150-379 Neutrophils 63 % Lymphs 23 % Monocytes 7 % Eos 6 % Basos 1 % Neutrophils (Absolute) 7.4 x10E3/uL 1.4-7.0 Lymphs (Absolute) 2.7 x10E3/uL 0.7-3.1 Monocytes(Absolute) 0.8 x10E3/uL 0.1-0.9 Eos (Absolute) 0.7 x10E3/uL 0.0-0.4 Baso (Absolute) 0.1 x10E3/uL 0.0-0.2 Immature Granulocytes 0 % Immature Grans (Abs) 0.0 x10E3/uL 0.0-0.1 Comp. Metabolic Panel (14) - 03/01/17 11:24 Glucose, Serum 81 mg/dL 65-99 BUN 8 mg/dL 6-24 Creatinine, Serum 0.87 mg/dL 0.76-1.27 eGFR If NonAfricn Am 99 mL/min/1.73 >59 eGFR If Africn Am 115 mL/min/1.73 >59 BUN/Creatinine Ratio 9 9-20 Sodium, Serum 142 mmol/L 134-144 Potassium, Serum 4.5 mmol/L 3.5-5.2 Chloride, Serum 101 mmol/L 96-106 Carbon Dioxide, Total 23 mmol/L 18-29 Calcium, Serum 9.4 mg/dL 8.7-10.2 Protein, Total, Serum 7.3 g/dL 6.0-8.5 Albumin, Serum 4.3 g/dL 3.5-5.5 Globulin, Total 3.0 g/dL 1.5-4.5 A/G Ratio 1.4 1.2-2.2 Bilirubin, Total <0.2 mg/dL 0.0-1.2 Alkaline Phosphatase, S 87 IU/L 39-117 AST (SGOT) 17 IU/L 0-40 ALT (SGPT) 14 IU/L 0-44 TSH - 03/01/17 11:24 TSH 1.450 uIU/mL 0.450-4.500 C-Reactive Protein, Quant - 03/01/17 11:24 C-Reactive Protein, Quant 10.5 mg/L 0.0-4.9 THYROID ANALYZER - 09/24/17 08:59 TSH 3.37 mIU/L 0.40-4.50 Drug Screen + ETOH - 04/23/18 08:15 Camera Repairer Laverne Nichols Donor ID By Photo ID Ethanol, Urine <10.00 mg/dL 20.00-80.00 Location [employer] Reason For Test Pre-Employment Temperature In Range YES Deg F 90.00-100.00 Urine Amphetamines NEGATIVE Urine Barbiturates NEGATIVE Urine Benzodiazepines NEGATIVE Urine Cocaine NEGATIVE Urine MDMA NEGATIVE Urine Methadone NEGATIVE Urine Methamphetamines NEGATIVE Urine Opiates NEGATIVE Urine Oxycodone NEGATIVE Urine PCP NEGATIVE Urine THC Metabolite NEGATIVE SPECIMEN ID NOTIFICATION$MISSING SECOND ID - 07/31/18 17:04 COMMENT: NRG Encounters ACCT No. Visit Date/Time Discharge Status Pt. Type Provider Facility Loc./Unit Complaint [id number] 11/06/2014 14:34:00 11/06/2014 23:59:59 [facility] Outpatient PREMA INTERIANO SAVITA Manjinder [id number] 10/08/2014 14:56:00 10/08/2014 23:59:59 CLS Outpatient GORDON SALMON MD [id number] 06/19/2014 10:36:00 06/19/2014 23:59:59 CLS Outpatient GORDON SALMON MD [id number] 01/29/2014 15:32:00 01/29/2014 23:59:59 CLS Outpatient GORDON SALMON MD [id number] 10/13/2013 15:05:00 10/13/2013 23:59:59 CLS Outpatient GORDON SALMON MD [id number] 06/13/2013 10:42:00 06/13/2013 23:59:59 CLS Outpatient GORDON SALMON MD [id number] 03/11/2013 14:14:00 03/11/2013 23:59:59 CLS Outpatient GORDON SALMON MD [id number] 11/28/2012 14:48:00 11/28/2012 23:59:59 CLS Outpatient [id number] 10/07/2012 14:43:00 10/07/2012 23:59:59 CLS Outpatient [id number] 08/05/2012 14:55:00 08/05/2012 23:59:59 CLS Outpatient GORDON SALMON MD [id number] 07/01/2012 14:53:00 07/01/2012 23:59:59 CLS Outpatient [id number] 07/01/2012 14:53:00 07/01/2012 23:59:59 CLS Outpatient GORDON SALMON MD [id number] 02/21/2013 15:00:00 Document Registration [id number] 01/28/2013 15:13:00 Document Registration [id number] 09/11/2018 17:20:00 09/11/2018 23:59:59 CLS Outpatient CHRIS MARTÍNEZ [facility] [place] [id number] 07/31/2018 16:40:00 Document Registration [id number] 09/24/2017 08:20:00 Document Registration [id number] 04/23/2018 08:07:00 04/23/2018 23:59:00 DIS Outpatient UNLISTED, UNLISTED [id number] 10/04/2018 06:26:00 10/04/2018 14:59:00 DIS Outpatient JEFFREY RICHMOND DO [facility] PREOP COLONOSCOPY/EGD [id number] 07/10/2017 09:02:00 07/10/2017 11:30:00 DIS Outpatient JEFFREY RICHMOND DO [facility] ENDO REFLUX/ABD PAIN/BLOOD IN STOOL [id number] 07/03/2017 05:52:00 07/03/2017 11:34:00 DIS Outpatient JEFFREY RICHMOND DO [facility] PREOP REFLUX/ABD PAIN/BLOOD IN STOOL [id number] 06/21/2016 15:18:00 06/21/2016 18:32:00 DIS Emergency ROBERT ZHANG APRN [facility] ER VOMITING [id number] 10/08/2018 14:27:00 ACT Outpatient JEFFREY RICHMOND DO [facility] ENDO BARDALES'S,DIARRHEA,EPIGASTRIC ABD PAIN, DYSPHAGIA [id number] 06/17/2012 17:22:00 Document Registration [id number] 05/24/2012 17:35:00 Document Registration [id number] 03/07/2012 15:12:00 Document Registration [id number] 02/10/2012 16:35:00 Document Registration [id number] 01/22/2012 17:08:00 Document Registration [id number] 04/20/2011 15:22:00 Document Registration [id number] 02/16/2011 08:34:00 Document Registration [id number] 03/02/2017 12:08:00 Document Registration
[2018-10-08] MEDS ORDERED: LACTATED RINGERS 1,000 ML IV ONE (14:38)
[2018-10-08 14:40] VITALS: BP 119/71
[2018-10-08] MEDS ORDERED: HURRICAINE EXT TUBE (BENZOCAINE) ONE (14:50)
[2018-10-08] MEDS ORDERED: PROPOFOL INJECTION 50 ML IV ONE (14:51)
[2018-10-08] MEDS ORDERED: MIDAZOLAM 2 MG/2 ML (VERSED) VIAL ONE (14:54)
[2018-10-08] MEDS ORDERED: LACTATED RINGERS 1,000 ML IV STA (14:56)
[2018-10-08] MEDS ORDERED: HURRICAINE EXT TUBE (BENZOCAINE) XX PRN (15:00)
--- NOTE | 2018-10-08 15:47 | Progress Note-Pre Operative ---
Pre-Operative Progress Note H&P Reviewed The H&P was reviewed, patient examined and no changes noted. Date Seen by Provider: Oct 08, 2018 Time Seen by Provider: 15:46 Date H&P Reviewed: Oct 08, 2018 Time H&P Reviewed: 15:46 Pre-Operative Diagnosis: mathis's, epigastric abdomianl pain, diarrhea, dysphagia JEFFREY RICHMOND DO Oct 08, 2018 15:47
[2018-10-08] MEDS ORDERED: proPOfol 200 MG/20 ML (DIPRIVAN) VIAL IV ONE (16:37)
--- NOTE | 2018-10-08 17:09 | Progress Note-Post Operative ---
Post-Operative Progess Note Surgeon (s)/Vinyl Hanger (s) Surgeon JEFFREY RICHMOND DO Vinyl Hanger: na Pre-Operative Diagnosis mathis's, epigastric abdomianl pain, diarrhea, dysphagia Post-Operative Diagnosis hiatal hernia, mathis's, gastritis, colon polyps Procedure & Operative Findings Date of Procedure 10/08/18 Procedure Performed/Findings egd c biopsies, colonoscopy with hot bx polypectomy x 7 Anesthesia Type per legal summer intern Estimated Blood Loss Estimated blood loss (mL): none Specimens/Packing Specimens Removed antrum, distal esophagus, colon polyps JEFFREY RICHMOND DO Oct 08, 2018 17:09
[2018-10-08] MEDS ORDERED: SUCR1TAB36 PO (17:10)
--- NOTE | 2018-10-08 17:10 | Discharge Inst-Simple/Standard ---
Discharge Inst-Standard Discharge Medications New, Converted or Re-Newed RX: Transmitted to Pharmacy Patient Instructions/Follow Up Plan of Care/Instructions/FU: 3 weeks Malissa Activity as Tolerated: Yes Discharge Diet: Regular Diet JEFFREY RICHMOND DO Oct 08, 2018 17:10
[2018-10-08 17:15] VITALS: BP 117/69
[2018-10-08 17:45] VITALS: BP 127/74
--- NOTE | 2018-10-09 02:41 | OPERATIVE REPORT ---
DATE OF SERVICE: 10/08/2018 PREOPERATIVE DIAGNOSES: Damian's epigastric abdominal pain, diarrhea, dysphagia. POSTOPERATIVE DIAGNOSES: Hiatal hernia, Damian's gastritis, colon polyps. PROCEDURE: EGD with biopsies, colonoscopy with hot biopsy polypectomy x7. SURGEON: Jeffrey Leonardo DO ANESTHESIA: Per RN URGENT CARE. ESTIMATED BLOOD LOSS: None. COMPLICATIONS: None. INDICATIONS: Biopsy of the antrum, distal esophagus and colon polyps. DESCRIPTION OF PROCEDURE: The patient was taken to the endoscopy suite, placed in left lateral recumbent position. Timeout was performed. Scope was inserted in mouth, down the esophagus, stomach and to the pylorus where the anastomosis was visualized with two limbs. No polyps, masses or ulcerations or erythematous changes present at the anastomosis. Scope was then slowly retracted back into the stomach where it was further insufflated. Some prominence of the appearance and some slight erythematous changes present. Biopsy of the antrum was obtained from the antrum. Scope was retroflexed noting no other pathology except for a hiatal hernia. The scope was returned to its normal position, slowly withdrawn to the distal esophagus, which had the appearance of Damian's. Multiple biopsies were obtained from this area. Scope was then slowly retracted back to completely remove, noting no other pathology. Digital rectal exam was performed. There were no palpable polyps, masses or ulcerations. Scope was inserted in the rectum and advanced all the way to the cecum with minimal difficulty. Prep was adequate with lots of irrigation and suction. There are no polyps, masses or ulcerations visualized within the cecum, ascending, and transverse colon. In the descending colon, there were 2 small polyps, which hot biopsy polypectomy was performed. Scope was continuously retracted back toward the sigmoid where a small polyp was encountered and a hot biopsy polypectomy was performed. There were two other polyps noted just slightly distal to this area, which hot biopsy polypectomy was performed on both of these polyps. Scope was continuously retracted back to the distal sigmoid, which another 2 polyps were present, which hot biopsy polypectomy was performed. Scope was continuously retracted back into the rectum where it was also retroflexed noting no other pathology. Scope was returned to its normal position, slowly withdrawn until completely removed. The patient tolerated procedure well without any complications and taken to recovery room in stable condition. RECOMMENDATIONS: The patient was recommended repeat colonoscopy in 1 to 3 years depending upon pathology. The patient will have Carafate added to his medicines to see if he has any improvement. Await biopsy results. Further recommendations are pending. The patient is to follow up in two to three weeks; if any issues before that, he will be seen at that time. Job ID: [id number] DocumentID: [id number] Dictated Date: 10/08/2018 17:15:00 Specialty Therapist Date: 10/09/2018 02:40:54 Dictated By: JEFFREY LEONARDO DO
== END 2018-10-08 17:45 | disposition home or self-care (01) ==
LOC: ENDO 14:27
PROVIDERS: ATTEND Surgery
DX: K63.5 Polyp of colon (principal); K52.9 Noninfective gastroenteritis and colitis, unspecified; K22.70 Barrett's esophagus without dysplasia; K44.9 Diaphragmatic hernia without obstruction or gangrene; F17.210 Nicotine dependence, cigarettes, uncomplicated; Z79.899 Other long term (current) drug therapy

== ENCOUNTER → 2018-11-21 | Outpatient (CLI) | payer BC ==
[~2018-11-21] MED LIST changes: +BARIUM SUSPENSION 105% (LIQUID POLIBAR PLUS) 240 ML/DOSE PO ONE; +BARIUM SUSPENSION 60% (LIQUID EZ PAQUE) 240 ML DOSE PO ONE
--- NOTE | 2018-11-21 17:59 | Diagnostic Imaging Report ---
INDICATION: Dysphagia. EXAMINATION: Patient ingested effervescent crystals as well as thin and thick barium and imaging of the esophagus was performed. A total of 1 minute and 28 seconds of fluoroscopy was utilized. FINDINGS: The esophagus has fairly smooth contour. No mass or stricture is identified. No hiatal hernia or gastroesophageal reflux was demonstrated. IMPRESSION: Unremarkable esophagram. Dictated by: Dictated on workstation # [id number]
== END ==
LOC: RAD 10:02
PROVIDERS: ATTEND Surgery
DX: R13.10 Dysphagia, unspecified (principal)
CPT/HCPCS: 74220

== ENCOUNTER → 2018-11-25 | Outpatient (CLI) | payer BC ==
[~2018-11-25] MED LIST changes: -BARIUM SUSPENSION 105% (LIQUID POLIBAR PLUS) 240 ML/DOSE PO ONE; -BARIUM SUSPENSION 60% (LIQUID EZ PAQUE) 240 ML DOSE PO ONE; +HOLD METFORMIN - RECEIVED CONTRAST 20 ML VIAL IV SCH; +IOHEXOL 350 MG/ML 150 ML (OMNIPAQUE 350) VIAL IV ONE
[2018-11-25 10:32] LABS: BASOPHILS # (AUTO) 0.1 10^3/uL (0.0-0.1); BASOPHILS % (AUTO) 1 % (0-10); EOSINOPHILS # (AUTO) 0.5 10^3/uL (0.0-0.3); EOSINOPHILS % (AUTO) 6 % (0-10); HEMATOCRIT 44 % (40-54); HEMOGLOBIN 15.1 G/DL (13.3-17.7); LYMPHOCYTES # (AUTO) 2.1 X 10^3 (1.0-4.0); LYMPHOCYTES % (AUTO) 24 % (12-44); MEAN CORPUSCULAR HEMOGLOBIN 30 PG (25-34); MEAN CORPUSCULAR HGB CONC 34 G/DL (32-36); MEAN CORPUSCULAR VOLUME 88 FL (80-99); MEAN PLATELET VOLUME 9.3 FL (7.4-10.4); MONOCYTES # (AUTO) 0.8 X 10^3 (0.0-1.0); MONOCYTES % (AUTO) 9 % (0-12); NEUTROPHILS # (AUTO) 5.1 X 10^3 (1.8-7.8); NEUTROPHILS % (AUTO) 60 % (42-75); PLATELET COUNT 376 10^3/uL (130-400); RED CELL DISTRIBUTION WIDTH 13.4 % (10.0-14.5); WHITE BLOOD COUNT 8.5 10^3/uL (4.3-11.0)
[2018-11-25 10:44] LABS: PROTHROMBIN TIME PATIENT 13.5 SEC (12.2-14.7)
[2018-11-25 10:51] LABS: ALANINE AMINOTRANSFERASE 14 U/L (0-55); ALBUMIN 4.7 GM/DL (3.2-4.5); ALKALINE PHOSPHATASE 82 U/L (40-136); BILIRUBIN,TOTAL 0.3 MG/DL (0.1-1.0); BUN/CREATININE RATIO 9; CARBON DIOXIDE 25 MMOL/L (21-32); CHLORIDE 105 MMOL/L (98-107); CREATININE SERUM 0.86 MG/DL (0.60-1.30); GFR ESTIMATED > 60; GLUCOSE 89 MG/DL (70-105); POTASSIUM 4.4 MMOL/L (3.6-5.0); SODIUM 139 MMOL/L (135-145)
[2018-11-25 11:15] LABS: ABG BASE EXCESS 0.6 MMOL/L (-2.5-2.5); ABG OXYGEN SATURATION 98 % (94-100); ABG PCO2 40 MMHG (35-45); ABG PO2 78 MMHG (79-93); ABG TCO2 26.5 MMOL/L (21.0-31.0)
[2018-11-25 11:16] LABS: ALLENS TEST YES-POS; INSPIRED O2 RA; VENTILATOR NO
--- NOTE | 2018-11-25 13:11 | Diagnostic Imaging Report ---
INDICATION: Abdominal pain and weight loss as well as dysphagia. TECHNIQUE: Axial imaging through the chest, abdomen, and pelvis was performed after the administration of intravenous contrast. CT angiographic protocol was utilized for the chest with multiplanar, 3D and MIP reformations. Correlation is made with prior CT from 06/21/2016. CT angio chest: FINDINGS: Evaluation of the pulmonary arterial system is without evidence of thromboembolism. No filling defects are seen within central, lobar or segmental branches. The thoracic aorta is normal caliber. No dissection is seen. No axillary lymphadenopathy is identified. There are small lymph nodes in the AP window. There is calcified subcarinal lymph node. Mildly prominent node in the right hilum measures 13 mm, indeterminate. No pericardial or pleural fluid is identified. There are significant centrilobular emphysematous changes in both lungs. Biapical pleural-parenchymal scarring is seen. No discrete mass is identified. There is some pleural calcified plaquing anterolaterally on the left. IMPRESSION: 1. No evidence of pulmonary embolism or thoracic aortic dissection. 2. Significant centrilobular emphysematous changes. No discrete pulmonary mass is seen. There is a small mildly prominent right hilar lymph node, indeterminate. Remainder of the study is unremarkable. CT abdomen and pelvis: FINDINGS: No discrete liver mass is seen apart from a calcification in the right lobe, similar to prior CT. Gallbladder is unremarkable. No biliary ductal dilatation is seen. The pancreas and spleen are unremarkable. No adrenal mass is identified. Kidneys are unremarkable apart from cortical low densities involving both kidneys suggestive of cysts. Aorta shows some atherosclerotic calcification but is otherwise unremarkable. No aneurysm is seen. Small and large bowel loops are normal caliber. No obstruction is seen. There is no ascites. Bladder is unremarkable. Bony structures are nonacute. IMPRESSION: Essentially unremarkable CT of the abdomen and pelvis. No acute feature is detected. No definite abdominal or pelvic lymphadenopathy is identified. Dictated by: Dictated on workstation # [id number]
== END ==
LOC: RAD 10:16
PROVIDERS: ATTEND Internal Medicine Critical Care Medicine
DX: J43.2 Centrilobular emphysema (principal); R59.0 Localized enlarged lymph nodes; J30.9 Allergic rhinitis, unspecified; R63.4 Abnormal weight loss; R13.10 Dysphagia, unspecified; Z72.0 Tobacco use
CPT/HCPCS: 36415; 36600; 71275; 74177; 80053; 82565; 82805; 84520; 85025; 85610; 85730; 86301

== ENCOUNTER 2018-12-06 13:34 | Outpatient (CLI) | payer BC ==
[~2018-12-06] VITALS: Ht 177.8 cm; Wt 61.7 kg
[~2018-12-06 13:34] MED LIST changes: -HOLD METFORMIN - RECEIVED CONTRAST 20 ML VIAL IV SCH; -IOHEXOL 350 MG/ML 150 ML (OMNIPAQUE 350) VIAL IV ONE; +METO5TAB75 PO; +TURM538C PO; +VITA1TAB PO
== END 2018-12-06 13:38 | disposition home or self-care (01) ==
LOC: PREOP 13:34
PROVIDERS: ATTEND Internal Medicine Critical Care Medicine
DX: Z01.818 Encounter for other preprocedural examination (principal)

== ENCOUNTER 2018-12-12 09:48 | Day surgery (SDC) | payer BC ==
[~2018-12-12] VITALS: Ht 177.8 cm; Wt 61.7 kg
[2018-12-12] MEDS ORDERED: LIDOCAINE PF 2% 5 ML (XYLOCAINE) VIAL INJ ONE (09:49)
[2018-12-12] MEDS ORDERED: LIDOCAINE JELLY 2% 6 ML SYRINGE TOP ONE (09:49)
[2018-12-12] MEDS ORDERED: LIDOCAINE PF 1% 2 ML VIAL (OR ONLY) IJ ONE (09:49)
[2018-12-12] MEDS ORDERED: NS IV 500 ML 500 ML ONE (10:00)
--- NOTE | 2018-12-12 10:15 | Progress Note-Pre Operative ---
Pre-Operative Progress Note H&P Reviewed The H&P was reviewed, patient examined and no changes noted. Date Seen by Provider: Dec 12, 2018 Time Seen by Provider: 10:30 Date H&P Reviewed: Dec 12, 2018 Time H&P Reviewed: 10:15 Pre-Operative Diagnosis: persistent cough, pulmonary lymphadenopathy STONEY BOSCH DO Dec 12, 2018 10:15
--- NOTE | 2018-12-12 10:16 | Pre-Op Note & Conscious Sedat ---
Pre-Operative Progress Note H&P Reviewed The H&P was reviewed, patient examined and no changes noted. Date H&P Reviewed: Dec 12, 2018 Time H&P Reviewed: 10:30 Conscious Sedation Pre-Proced Time 10:15 ASA Score 3 For ASA 3 and 4: Consider anesthesia and medical clearance. Also, for patients with a history of failed moderate sedation consider anesthesia. Airway Lungs Heart ASA score ASA 1: a normal healthy patient ASA 2: a patient with a mild systemic disease (mid diabetes, controlled hypertension, obesity ASA 3: a patient with a severe systemic disease that limits activity (angina , COPD, prior Myocardial infarction) ASA 4: a patient with an incapacitating disease that is a constant threat to life (CHF, renal failure) ASA 5: a moribund patient not expected to survive 24 hrs. (ruptured aneurysm) ASA 6: a declared brain- patient whose organs are being harvested. For emergent operations, add the letter E after the classification Mallampati Classification Grade 2 Sedation Plan Analgesia, Amnesia, Plan communicated to team members, Discussed options with patient/fam, Discussed risks with patient/fam The patient is an appropriate candidate to undergo the planned procedure, sedation, and anesthesia. The patient immediately re-assessed prior to indication. STONEY BOSCH DO Dec 12, 2018 10:16
[2018-12-12] MEDS ORDERED: NS IV 500 ML 500 ML IV PRN (10:24)
[2018-12-12 10:28] VITALS: BP 112/82
[2018-12-12] MEDS ORDERED: MIDAZOLAM 2 MG/2 ML (VERSED) VIAL IVP ONE (10:30)
[2018-12-12] MEDS ORDERED: fentaNYL INJECTION 100 MCG/2 ML AMP IVP ONE (10:30)
[2018-12-12] MEDS ORDERED: fentaNYL INJECTION 100 MCG/2 ML AMP ONE ×2 (10:59)
[2018-12-12] MEDS ORDERED: MIDAZOLAM 2 MG/2 ML (VERSED) VIAL ONE ×3 (10:59)
[2018-12-12 12:20] VITALS: BP 109/78
--- NOTE | 2018-12-12 12:39 | Pulmonary Procedures ---
Pulmonary Procedures Date of Procedure Date of Service: Dec 12, 2018 Bronch Bronchoscopy with bilateral bronchial washes and, brushes of dameon x 2 Preop DX mediastinal lymph nodes Postop DX: same Complications: none. No endobronchial masses. After informed consent obtained and formal time out pt was sedated using Fentanyl and Versed. Bronchoscope was advanced through the nare and vocal cords. 1% lidocaine was used to anesthetize vocal cords, epiglottis, dameon, and left/right main stem bronchus. An anatomical tour was undertaken down to the segmental bronchi bilaterally. No endobronchial lesions noted. Bronchoscopy with bilateral bronchial washes and, brushes of dameon x 2 were obtained. Pt tolerated procedure well. No complications noted. Stat CXR is pending. STONEY BOSCH DO Dec 12, 2018 12:39
--- NOTE | 2018-12-12 12:50 | Diagnostic Imaging Report ---
INDICATION: Status post bronchoscopy. TIME OF EXAM: 12:12 p.m. COMPARISON: Correlation is made with prior study from 02/10/2012. FINDINGS: The heart size is stable. The lungs are clear. No pneumothorax is seen status post bronchoscopy. There is no effusion. IMPRESSION: No evidence of pneumothorax. Dictated by: Dictated on workstation # [id number]
[2018-12-12 12:51] VITALS: BP 110/78
[2018-12-12 12:54] VITALS: BP 110/78
== END 2018-12-12 12:50 | disposition home or self-care (01) ==
LOC: ENDO 09:48
PROVIDERS: ATTEND Internal Medicine Critical Care Medicine
DX: R06.09 Other forms of dyspnea (principal); J30.9 Allergic rhinitis, unspecified; F17.210 Nicotine dependence, cigarettes, uncomplicated; R63.4 Abnormal weight loss; Z79.899 Other long term (current) drug therapy
CPT/HCPCS: 71045; 87015; 87070; 87101; 87116; 87205; 87206; 88112

== ENCOUNTER → 2018-12-16 | Outpatient (CLI) | payer BC ==
[~2018-12-16] MED LIST changes: +RT-ALBUTEROL SULF 2.5 MG/3 ML PRE-MIX VIAL INH ONE; +RT-ALBUTEROL SULF 2.5 MG/3 ML PRE-MIX VIAL ONE
== END ==
LOC: RT 07:47
PROVIDERS: ATTEND Internal Medicine Critical Care Medicine
DX: R06.00 Dyspnea, unspecified (principal); J30.9 Allergic rhinitis, unspecified; R63.4 Abnormal weight loss; R13.10 Dysphagia, unspecified; Z72.0 Tobacco use
CPT/HCPCS: 94060; 94726; 94729

== ENCOUNTER 2019-03-07 07:29 | Emergency (ER) | payer BC ==
[~2019-03-07] VITALS: Ht 177.8 cm; Wt 61.7 kg
[~2019-03-07 07:29] MED LIST changes: -RT-ALBUTEROL SULF 2.5 MG/3 ML PRE-MIX VIAL INH ONE; -RT-ALBUTEROL SULF 2.5 MG/3 ML PRE-MIX VIAL ONE
[2019-03-07] MEDS ORDERED: ASPIRIN 81 MG CHEW (CHILDREN'S ASA) PO ONE (07:30)
--- NOTE | 2019-03-07 07:30 | NUR ---
pt here with " ". pt alert gcs 15. pt nondescript with current c/os. pt c/o chest pain and " sides" pain. pain rating 6. been going on x " for awhile". pt also c/o dyspnea and has h/o copd and is a smoker. currently pt has nonproductive dry to slightly congested cough in er. resp shallow nonlabored. pt speaks full sentences and has no duskiness or cyanosis noted. no accessory muecle use noted. lungs exp wheezes bilaterally moreso on right. none audible. abd soft nondistended tender to palpation all quads. pt has h/o colon resection and relates they told me i will have abd pain for rest of my life. neg edema noted. tele applied by me shows sr 61.done aidan pt at 0745.
[2019-03-07] MEDS ORDERED: RT-ALBUTEROL/IPRATROPIUM 3 ML (DUONEB) VIAL INH ONE (07:45)
[2019-03-07 07:49] LABS: BASOPHILS # (AUTO) 0.1 10^3/uL (0.0-0.1); BASOPHILS % (AUTO) 1 % (0-10); EOSINOPHILS # (AUTO) 0.7 10^3/uL (0.0-0.3); EOSINOPHILS % (AUTO) 7 % (0-10); HEMATOCRIT 42 % (40-54); HEMOGLOBIN 14.2 G/DL (13.3-17.7); LYMPHOCYTES # (AUTO) 2.1 X 10^3 (1.0-4.0); LYMPHOCYTES % (AUTO) 19 % (12-44); MEAN CORPUSCULAR HEMOGLOBIN 30 PG (25-34); MEAN CORPUSCULAR HGB CONC 34 G/DL (32-36); MEAN CORPUSCULAR VOLUME 89 FL (80-99); MEAN PLATELET VOLUME 9.3 FL (7.4-10.4); MONOCYTES % (AUTO) 9 % (0-12); NEUTROPHILS # (AUTO) 7.3 X 10^3 (1.8-7.8); NEUTROPHILS % (AUTO) 65 % (42-75); PLATELET COUNT 374 10^3/uL (130-400); RED CELL DISTRIBUTION WIDTH 13.3 % (10.0-14.5); WHITE BLOOD COUNT 11.3 10^3/uL (4.3-11.0)
[2019-03-07] MEDS ORDERED: RT-IPRATROPIUM (ATROVENT) 0.5MG/2.5ML AMP IH ONE ×2 (08:05→08:15)
[2019-03-07] MEDS ORDERED: RT-ALBUTEROL SULF 2.5 MG/3 ML PRE-MIX VIAL ONE (08:06)
[2019-03-07 08:07] LABS: ALANINE AMINOTRANSFERASE 15 U/L (0-55); ALBUMIN 4.5 GM/DL (3.2-4.5); ALKALINE PHOSPHATASE 80 U/L (40-136); BILIRUBIN,TOTAL 0.3 MG/DL (0.1-1.0); BUN/CREATININE RATIO 12; CALCIUM 9.7 MG/DL (8.5-10.1); CARBON DIOXIDE 24 MMOL/L (21-32); CHLORIDE 105 MMOL/L (98-107); CREATININE SERUM 0.84 MG/DL (0.60-1.30); GFR ESTIMATED > 60; GLUCOSE 77 MG/DL (70-105); MAGNESIUM 2.3 MG/DL (1.8-2.4); POTASSIUM 4.2 MMOL/L (3.6-5.0); SODIUM 140 MMOL/L (135-145); TOTAL PROTEIN 7.4 GM/DL (6.4-8.2)
--- NOTE | 2019-03-07 08:07 | ED Chest Pain ---
General Chief Complaint: Chest Pain Stated Complaint: CHEST PAIN;SOA Nursing Triage Note: chest pain, dyspnea Nursing Sepsis Screen: No Definite Risk Source: patient Exam Limitations: no limitations History of Present Illness Date Seen by Provider: Mar 07, 2019 Time Seen by Provider: 07:31 Initial Comments Here with report of chest pain that is quite severe this morning and persisting now. Has had a week's worth of cough and has pain in his sides from coughing. Does have a history of COPD and has smoked for a long time. Patient hasn't states that he has been coughing up white, thick sputum over the last couple of days. Denies fevers. He uses albuterol inhaler 4 times this morning and that allowed him to breathe better. Denies nausea or vomiting. Had decreased his smoking to have a pack a day but now is back up to a pack a day. Timing/Duration: 1-3 hours Severity/Quality: moderate, aching Location: central Radiation: other (flanks) Activities at Onset: none Prior CP/Workup: no prior cardiac workup Modifying Factors: worse with coughing; improves with rest ASA po FORMULA ROOM WORKER: No NTG SL FORMULA ROOM WORKER: No Associated Symptoms: abdominal pain; No back pain, No diaphoresis, No fever/chills, No nausea/vomiting; shortness of breath Allergies and Home Medications Allergies Coded Allergies: No Known Drug Allergies (Unverified , 03/07/19) Home Medications Ascorbic Acid 500 Mg Capsule, 500 MG PO DAILY, (Reported) Metoclopramide HCl 5 Mg Tablet, 10 MG PO QID, (Reported) take 2 (5mg) Tabs Multivitamin 1 Each Tablet, 1 EACH PO DAILY, (Reported) Quetiapine Fumarate 100 Mg Tablet, 100 MG PO HS PRN for INSOMNIA, (Reported) Sucralfate 1 Gm Tablet, 1 GM PO ACHS, (Reported) Tramadol HCl 50 Mg Tablet, 50 MG PO BID, (Reported) Vitamin B Complex 1 Each Tablet, 1 EACH PO DAILY, (Reported) Zinc Gluconate 50 Mg Tablet, 50 MG PO DAILY, (Reported) Patient Home Medication List Home Medication List Reviewed: Yes Review of Systems Review of Systems Constitutional: see HPI; No chills, No fever EENTM: No Symptoms Reported Respiratory: Cough, Shortness of Air, Wheezing Cardiovascular: Chest Pain; Denies Edema Gastrointestinal: Denies Nausea, Denies Vomiting Genitourinary: No Symptoms Reported Musculoskeletal: no symptoms reported Skin: no symptoms reported All Other Systems Reviewed Negative Unless Noted: Yes Past Qgswfsf-Kgmkmp-Rowuoy Hx Past Med/Social Hx: Reviewed Nursing Past Med/Soc Hx Patient Social History Alcohol Use: Denies Use Recreational Drug Use: No Smoking Status: Current Everyday Smoker Type Used: Cigarettes 2nd Hand Smoke Exposure: Yes Recent Foreign Travel: No Contact w/Someone Who Travel: No Recent Infectious Disease Expo: No Recent Hopitalizations: No Physical Abuse: No Sexual Abuse: No Immunizations Up To Date Date of Pneumonia Vaccine: Jun 03, 2012 Date of Influenza Vaccine: Jun 20, 2017 Seasonal Allergies Seasonal Allergies: No Past Medical History Surgeries: Yes (COLON RESECTION, LEG-MUSCLE BIOPSY) Bowel Surgery Respiratory: Yes (dysphagia) Cardiac: No Neurological: No Reproductive Disorders: No Genitourinary: No Gastrointestinal: Yes (abd pain, blood in stools, vomiting) Gastroesophageal Reflux Musculoskeletal: No Endocrine: No HEENT: No Cancer: No Psychosocial: No Integumentary: No Blood Disorders: No Family Medical History Reviewed Nursing Family Hx Physical Exam Vital Signs Vital Signs - First Documented 03/07/19 07:30 Temp 98.2 Pulse 60 Resp 20 B/P (MAP) 134/75 (94) Pulse Ox 99 O2 Delivery Room Air Capillary Refill : Less Than 3 Seconds Height, Weight, BMI Height: 5'10.00" Weight: 136lbs. 0.0oz. 61.368645fh; 19.5 BMI Method:Stated General Appearance: WD/WN, Mild Distress HEENT: PERRL/EOMI, Pharynx Normal Neck: Non Tender, Supple Respiratory: Decreased Breath Sounds, Wheezing (bilateral) Cardiovascular: Regular Rate, Rhythm, No Murmur Gastrointestinal: Non Tender, Soft Extremity: Normal Inspection, Normal Range of Motion, Non Tender Neurologic/Psychiatric: Alert, Oriented x3 Skin: Normal Color, Warm/Dry Progress/Results/Core Measures Results/Orders Lab Results Laboratory Tests Test 03/07/19 07:43 03/07/19 09:49 Range/Units White Blood Count 11.3 H 4.3-11.0 10^3/uL Red Blood Count 4.78 4.35-5.85 10^6/uL Hemoglobin 14.2 13.3-17.7 G/DL Hematocrit 42 40-54 % Mean Corpuscular Volume 89 80-99 FL Mean Corpuscular Hemoglobin 30 25-34 PG Mean Corpuscular Hemoglobin Concent 34 32-36 G/DL Red Cell Distribution Width 13.3 10.0-14.5 % Platelet Count 374 130-400 10^3/uL Mean Platelet Volume 9.3 7.4-10.4 FL Neutrophils (%) (Auto) 65 42-75 % Lymphocytes (%) (Auto) 19 12-44 % Monocytes (%) (Auto) 9 0-12 % Eosinophils (%) (Auto) 7 0-10 % Basophils (%) (Auto) 1 0-10 % Neutrophils # (Auto) 7.3 1.8-7.8 X 10^3 Lymphocytes # (Auto) 2.1 1.0-4.0 X 10^3 Monocytes # (Auto) 1.0 0.0-1.0 X 10^3 Eosinophils # (Auto) 0.7 H 0.0-0.3 10^3/uL Basophils # (Auto) 0.1 0.0-0.1 10^3/uL Prothrombin Time 13.0 12.2-14.7 SEC INR Comment 1.0 0.8-1.4 Activated Partial Thromboplast Time 32 24-35 SEC Sodium Level 140 135-145 MMOL/L Potassium Level 4.2 3.6-5.0 MMOL/L Chloride Level 105 98-107 MMOL/L Carbon Dioxide Level 24 21-32 MMOL/L Anion Gap 11 5-14 MMOL/L Blood Urea Nitrogen 10 7-18 MG/DL Creatinine 0.84 0.60-1.30 MG/DL Estimat Glomerular Filtration Rate > 60 BUN/Creatinine Ratio 12 Glucose Level 77 70-105 MG/DL Calcium Level 9.7 8.5-10.1 MG/DL Corrected Calcium 9.3 8.5-10.1 MG/DL Magnesium Level 2.3 1.8-2.4 MG/DL Total Bilirubin 0.3 0.1-1.0 MG/DL Aspartate Amino Transf (AST/SGOT) 17 5-34 U/L Alanine Aminotransferase (ALT/SGPT) 15 0-55 U/L Alkaline Phosphatase 80 40-136 U/L Myoglobin 36.6 10.0-92.0 NG/ML Troponin I < 0.028 < 0.028 <0.028 NG/ML Total Protein 7.4 6.4-8.2 GM/DL Albumin 4.5 3.2-4.5 GM/DL My Orders Orders - DULCE MONTOYA MD Ekg Tracing (03/07/19 07:30) Chest 1 View, Ap/Pa Only (03/07/19 07:30) Cbc With Automated Diff (03/07/19 07:30) Magnesium (03/07/19 07:30) Cardiac Profile 1 (03/07/19 07:30) Comprehensive Metabolic Panel (03/07/19 07:30) Myoglobin Serum (03/07/19 07:30) Protime With Inr (03/07/19 07:30) Partial Thromboplastin Time (03/07/19 07:30) Aspirin Chewable Tablet (Baby Aspirin Ch (03/07/19 07:30) O2 (03/07/19 07:30) Monitor-Rhythm Ecg Trace Only (03/07/19 07:30) Lipid Panel (03/08/19 06:00) Ed Iv/Invasive Line Start (03/07/19 07:30) Albuterol/Ipra Inhalation Soln (Duoneb I (03/07/19 07:45) Svn Small Volume Nebulizer (03/07/19 07:40) Albuterol Pre-Mix Nebs (Rt) (Proventil (03/07/19 08:10) Ipratropium 0.02% Neb Solution (Atrovent (03/07/19 08:15) Svn Small Volume Nebulizer (03/07/19 08:10) Svn Small Volume Nebulizer (03/07/19 08:10) Ipratropium 0.02% Neb Solution (Atrovent (03/07/19 08:05) Albuterol Pre-Mix Nebs (Rt) (Proventil (03/07/19 08:06) Prednisone Tablet (Deltasone Tablet) (03/07/19 09:00) Ketorolac Injection (Toradol Injection) (03/07/19 08:56) Troponin I (03/07/19 09:26) Medications Given in ED Current Medications Medications Dose Ordered Sig/Kim Route Start Time Stop Time Status Last Admin Dose Admin Albuterol/ Ipratropium 3 ml ONCE ONCE INH 03/07/19 07:45 7/12/19 07:46 DC 03/07/19 08:03 3 ML Aspirin 324 mg ONCE ONCE PO 03/07/19 07:30 03/07/19 07:31 DC 03/07/19 07:49 324 MG Ipratropium [place] 0.5 mg ONCE ONCE IH 03/07/19 08:15 03/07/19 08:16 DC 03/07/19 08:13 0.5 MG Prednisone 40 mg ONCE ONCE PO 03/07/19 09:00 03/07/19 09:01 DC 03/07/19 09:13 40 MG Vital Signs/I&O 03/07/19 03/07/19 03/07/19 07:30 08:03 08:16 Temp 98.2 Pulse 60 Resp 20 B/P (MAP) 134/75 (94) Pulse Ox 99 99 99 O2 Delivery Room Air Room Air Room Air Blood Pressure Mean: 94 Progress Progress Note : Progress Note Seen and evaluated. IV, labs, EKG and chest x-ray ordered. ASA 324 mg by mouth ordered. Duo neb ordered. Monitor patient. 0815: Continuous hour-long treatment ordered as initial treatment helped a little bit and he does have better aeration. Monitor patient. 0945: Repeat troponin ordered. Patient doing better after continuous hour-long treatment. 1100: Patient overall remains improved. Repeat troponin negative. I do believe this is a COPD exacerbation. Given the coughing and mucoid plan. Duction we will go ahead and initiate antibiotics outpatient and continue steroids for 5 more days. I instructed him to follow-up with Dr. Bhagat and I will send a copy of the chart to him. Discharged home with return precautions. Patient verbalize understanding instructions and agreement with plan. Initial ECG Impression Date: Mar 07, 2019 Initial ECG Impression Time: 07:36 Initial ECG Rate: 56 Initial ECG Rhythm: Normal Sinus Initial ECG Comparisson: Unchanged Comment Sinus rhythm with normal rightward axis. No evidence of ST elevation [place]. Similar to previous overall although rate slower. Interpreted by me. Diagnostic Imaging Diagonstic Imaging: Xray Plain Films/CT/US/NM/MRI: chest Comments [facility] [place], [place] NAME: JANE TRINH MED REC#: [id number] PT STATUS: REG ER : 1965 PHYSICIAN: DULCE MONTOYA MD ADMIT DATE: 03/07/19/ER Draft Date of Exam:03/07/19 CHEST 1 VIEW, AP/PA ONLY INDICATION: Shortness of breath. Frontal chest obtained at 8:06 a.m. and compared to 12/12/2018. FINDINGS: Heart and mediastinal silhouette are normal in appearance. There is no pneumothorax or pleural fluid. There is no new infiltrate. There are chronic appearing increased interstitial markings. There is some parenchymal scarring in the left midlung. IMPRESSION: Chronic changes as described above with no acute consolidation or pleural fluid. Dictated on workstation # [id number] Dict: 03/07/19 0847 Trans: 03/07/19 0857 [id number] Interpreted by: ZHENG VILLEGAS MD Electronically signed by: Departure Impression Primary Impression: COPD with acute exacerbation Disposition: 01 HOME, SELF-CARE Condition: Improved Departure-Patient Inst. Decision time for Depature: 11:07 Referrals: NO,LOCAL PHYSICIAN (PCP/Family) Primary Care Physician Patient Instructions: Chest Pain (DC), Chronic Obstructive Pulmonary Disease (COPD), Including Emphysema Add. Discharge Instructions: All discharge instructions reviewed with patient and/or family. Voiced understanding. Take medications as directed. You may take ibuprofen 600 mg every 8 hours as needed for pain. You may take Tylenol/acetaminophen 1000 mg every 8 hours as needed for pain. Follow-up with Dr. Bhagat within one week for recheck and further evaluation. You should rest over the next 2 days and then return to work next Sunday. Return for worse pain, fever, vomiting, weakness, breathing problems or other concerns as needed. Scripts Prednisone (Prednisone) 20 Mg Tab 40 MG PO DAILY, #10 TAB 0 Refills Prov: DULCE MONTOYA MD 03/07/19 Doxycycline Hyclate (Doxycycline Hyclate) 100 Mg Tablet 100 MG PO BID, #14 TAB 0 Refills Prov: DULCE MONTOYA MD 03/07/19 Work/School Note: Work Release Form Date Seen in the Emergency Department: Mar 07, 2019 Return to Work: Mar 09, 2019 Restrictions: No Restrictions Copy Copies To 1: STONEY BHAGAT DO Copies To 2: HOWARD ROONEY MD, TIMOTHY D MD Mar 07, 2019 08:07
[2019-03-07] MEDS ORDERED: RT-ALBUTEROL SULF 2.5 MG/3 ML PRE-MIX VIAL INH STA (08:10)
--- NOTE | 2019-03-07 08:12 | NUR ---
pt said nka. computer says morphine is nausea. pt denies this and says it just was not working for the pain. i placed pt back on nka.
[2019-03-07] MEDS ORDERED: VITA100T8 (08:17)
[2019-03-07] MEDS ORDERED: OMG1KC (08:17)
--- NOTE | 2019-03-07 08:20 | NUR ---
resp said neb tx x 1 hr. i will take it off in 1 hr.
--- OUTSIDE RECORDS SUMMARY | 2019-03-07 08:42 | XMS REPORT ---
Author Author GORDON SALMON [facility] Address [address] [place] [address] Care Team Providers Care Physician Chief Of Pathology Name Role Phone GORDON SALMON Unavailable PROBLEMS Type Condition ICD9-CM Code IAE25-FO Code Onset Dates Condition Status SNOMED Code Problem Mixed hyperlipidemia E78.2 Active 104416240 Problem Damian''s esophagus without dysplasia K22.70 Active 777954769 Problem Low back pain M54.5 Active 648121772 Problem Eosinophilia D72.1 Active 227478479 Problem Paranoid ideation F22 Active 733500479 Problem Other chronic pain G89.29 Active 13378578 Problem Chronic fatigue R53.82 Active 18247719 Problem Arthritis M19.90 Active 3166205 Problem Erectile dysfunction, unspecified erectile dysfunction type N52.9 Active 109886688 Problem Hyperlipidemia, unspecified hyperlipidemia type E78.5 Active 61734602 Problem Moderate episode of recurrent major depressive disorder F33.1 Active 014502667 Problem Chronic obstructive pulmonary disease, unspecified COPD type J44.9 Active 60404352 Problem Anxiety, generalized F41.1 Active 70216885 Problem Insomnia, unspecified type G47.00 Active 365330669 Problem GERD with esophagitis K21.0 Active 970010526 Problem Cigarette smoker motivated to quit F17.200 Active 26778880 Problem Major depression in remission F32.5 Active 07225412 ALLERGIES No Information ENCOUNTERS Encounter Location Date Diagnosis [facility] [id number] [address] Jan, Damian''s esophagus without dysplasia K22.70 ; Chronic obstructive pulmonary disease, unspecified COPD type J44.9 ; Major depression in remission F32.5 and Hyperlipidemia, unspecified hyperlipidemia type E78.5 [facility] [address] [id number] [address] Sep, [facility] [id number] [place] [address] Aug, Other chronic pain G89.29 ; Cigarette smoker motivated to quit F17.200 and Chronic cough R05 [address] [address] Aug, GERD with esophagitis K21.0 and Dmaian''s esophagus without dysplasia K22.70 [facility] [address] [address] 07 Jul, 2018 Acute sinusitis J01.90 and Acute bronchitis J20.[address] [address] Jul, Arthritis M19.90 [place] [address] [address] Jun, Arthritis M19.90 [place] [address] [address] May, Damian''s esophagus without dysplasia K22.70 ; Other chronic pain G89.29 ; Low back pain M54.5 ; Arthritis M19.90 ; Insomnia, unspecified type G47.00 ; GERD with esophagitis K21.0 and Anxiety, generalized F41.1 [place] [id number] [place] [address] May, [place] [address] [address] Jan, Other chronic pain G89.29 [place] [id number] [place] [address] Nov, Other chronic pain G89.29 [place] [address] [address] Oct, Other chronic pain G89.29 [place] [address] [address] Sep, Moderate episode of recurrent major depressive disorder F33.1 ; GERD with esophagitis K21.0 ; Erectile dysfunction, unspecified erectile dysfunction type N52.9 ; Other chronic pain G89.29 ; Damian''s esophagus without dysplasia K22.70 and Mixed hyperlipidemia E78.2 [place] [id number] [place] [address] Sep, Low back pain M54.5 [place] [address] [address] Aug, GERD with esophagitis K21.0 ; Reactive depression F32.9 ; Chronic fatigue R53.82 ; Arthritis M19.90 ; Other chronic pain G89.29 and Low back pain M54.5 [place] [address] [address] Jul, Encounter to establish care with new doctor Z76.89 [address] [address] [address] Jun, Other chronic pain G89.29 [place] [address] [address] Jun, Other chronic pain G89.29 [place] [address] [address] May, GERD with esophagitis K21.0 and Other chronic pain G89.29 [place] [id number] [place] [address] Apr, Low back pain M54.5 [address] [address] [address] Apr, Reactive depression F32.9 [place] [address] [address] Mar, Encounter to establish care with new doctor Z76.89 ; Weight loss, unintentional R63.4 ; Moderate episode of recurrent major depressive disorder F33.1 ; Chronic fatigue R53.82 ; Low back pain M54.5 ; Arthritis M19.90 ; Controlled substance agreement signed Z79.899 and High risk medication use Z79.899 [facility] [id number] [place] [address] Mar, Low back pain M54.5 [facility] [id number] [place] [address] Mar, Reactive depression F32.9 ; Paranoid ideation F22 and Anxiety, generalized F41.1 [facility] [id number] [place] [address] Mar, [facility] [id number] [place] [address] Feb, [facility] [id number] [place] [address] Feb, [address] [id number] [place] [address] Feb, Epigastric pain R10.13 ; Weight loss R63.4 and Eustachian tube dysfunction, left H69.82 [address] [id number] [place] [address] Jan, Reactive depression F32.9 and Low back pain M54.5 [address] [id number] [place] [address] 14 Sep, 2016 Reactive depression F32.9 and Irritable bowel syndrome without diarrhea K58.9 [facility] [id number] [place] [address] Aug, [facility] [id number] [place] [address] May, [facility] [id number] [place] [address] May, [facility] [id number] [place] [address] Mar, [facility] [id number] [place] [address] Mar, Leukocytosis, unspecified type D72.829 [facility] [id number] [place] [address] Mar, Leukocytosis, unspecified type D72.829 [facility] [id number] [place] [address] Feb, Weight loss R63.4 ; Syncope, unspecified syncope type R55 ; Low back pain M54.5 ; Other chronic pain G89.29 and Reactive depression F32.9 [address] [id number] [place] [address] Jul, [place] [id number] [place] [address] May, Arthritis M19.90 [address] [address] [address] Apr, Chronic pain 338.29 [facility] [id number] [place] [address] Apr, Anxiety state, unspecified 300.00 [facility] [id number] [place] [address] Jan, Anxiety state, unspecified 300.00 [facility] [id number] [place] [address] Jan, Chronic pain 338.29 and Anxiety state, unspecified 300.00 [facility] [id number] [place] [address] Jan, [facility] [id number] [place] [address] 14 Nov, 2014 [facility] [id number] [place] [address] 13 Nov, 2014 [facility] [id number] [place] [address] Oct, [facility] [place] [facility] [address] [id number] [place] [address] Oct, [facility] [place] [facility] [address] [id number] [place] [address] Oct, [facility] [place] [facility] [address] [id number] [place] [address] Oct, [facility] [place] [facility] [address] [id number] [place] [address] Sep, 2014 [facility] [place] [facility] [address] [id number] [place] [address] Sep, 2014 [facility] [place] [facility] [address] [id number] [place] [address] Sep, [facility] [place] [facility] [address] [id number] [place] [address] Sep, [facility] [place] [facility] [address] [id number] [place] [address] May, [facility] [place] [facility] [address] [id number] [place] [address] May, [facility] [place] [facility] [address] [id number] [place] [address] Apr, [facility] [place] [facility] [address] [id number] [address] Apr, [facility] [place] [facility] [address] [id number] [address] Jan, [facility] [place] [facility] [address] [id number] [place] [address] Jan, [facility] [place] [facility] [address] [facility] [id number] [place] [address] Jan, [facility] [place] [facility] [address] [id number] [place] [address] Jan, [facility] [place] [facility] [address] [id number] [place] [address] Jan, [facility] [place] [facility] [address] [id number] [place] [address] December, [facility] [place] [facility] [address] [id number] [place] [address] December, [facility] [place] [facility] [address] [id number] [place] [address] Sep, [facility] [place] [facility] [address] [id number] [place] [address] Sep, [facility] [place] [facility] [address] [id number] [place] [address] Aug, [facility] [place] [facility] [address] [id number] [place] [address] Aug, [facility] [place] [facility] [address] [id number] [place] [address] Jun, [facility] [place] [facility] [address] [id number] [place] [address] Jun, [facility] [place] [facility] [address] [id number] [place] [address] May, [facility] [place] [facility] [address] [id number] [place] [address] May, [facility] [place] [facility] [address] [id number] [place] [address] May, [facility] [place] [facility] [address] [id number] [place] [address] Feb, [facility] [place] [facility] [address] [id number] [place] [address] Jan, [facility] [place] [facility] [address] [id number] [place] [address] Jan, [facility] [place] [facility] [address] [id number] [place] [address] Jan, [facility] [place] [facility] [address] [id number] [place] [address] Nov, [facility] [place] [facility] [address] [id number] [place] [address] Sep, [facility] [place] [facility] [address] [id number] [place] [address] Aug, [facility] [place] [facility] [address] [id number] [place] [address] Jul, [facility] [place] [facility] [address] [id number] [place] [address] Jul, [facility] [place] [facility] [address] [id number] [place] [address] Jul, [facility] [place] [facility] [address] [id number] [place] [address] Jul, [facility] [place] [facility] [address] [id number] [place] [address] Jul, [facility] [place] [facility] [address] [id number] [place] [address] Jul, [facility] [place] [facility] [address] [id number] [place] [address] Jun, [facility] [place] [facility] [address] [id number] [place] [address] Jun, [facility] [place] [facility] [address] [id number] [place] [address] Jun, [facility] [place] [facility] [address] [id number] [place] [address] Jun, [facility] [place] [facility] [address] [id number] [place] [address] Feb, [facility] [place] [facility] [address] [id number] [place] [address] Jan, [facility] [place] [facility] [address] [facility] [id number] [place] [address] Jan, [facility] [address] [facility] [id number] [place] [address] Feb, [facility] [address] [facility] [id number] [place] [address] Jan, IMMUNIZATIONS No Known Immunizations SOCIAL HISTORY Never Assessed REASON FOR VISIT PLAN OF CARE VITAL SIGNS MEDICATIONS No Known Medications RESULTS No Results PROCEDURES No Known [...]
--- OUTSIDE RECORDS SUMMARY | 2019-03-07 08:42 | XMS REPORT ---
Author Author SAVITA Loyd Organization [facility] Address Unknown Care Team Providers Care Liquid Fertilizer Servicer Name Role Phone SAVITA Loyd Unavailable PROBLEMS Type Condition ICD9-CM Code MLM39-YR Code Onset Dates Condition Status SNOMED Code Problem Mixed hyperlipidemia E78.2 Active 272619723 Problem Damian''s esophagus without dysplasia K22.70 Active 890006583 Problem Low back pain M54.5 Active 864061901 Problem Eosinophilia D72.1 Active 764789605 Problem Paranoid ideation F22 Active 426542825 Problem Other chronic pain G89.29 Active 16585041 Problem Chronic fatigue R53.82 Active 70183393 Problem Arthritis M19.90 Active 2693714 Problem Erectile dysfunction, unspecified erectile dysfunction type N52.9 Active 707922573 Problem Hyperlipidemia, unspecified hyperlipidemia type E78.5 Active 45415039 Problem Moderate episode of recurrent major depressive disorder F33.1 Active 345595178 Problem Chronic obstructive pulmonary disease, unspecified COPD type J44.9 Active 60153363 Problem Anxiety, generalized F41.1 Active 33303471 Problem Insomnia, unspecified type G47.00 Active 859931580 Problem GERD with esophagitis K21.0 Active 110101980 Problem Cigarette smoker motivated to quit F17.200 Active 95568289 Problem Major depression in remission F32.5 Active 23350488 ALLERGIES No Information ENCOUNTERS Encounter Location Date Diagnosis [facility] [id number] [address] Jan, Damian''s esophagus without dysplasia K22.70 ; Chronic obstructive pulmonary disease, unspecified COPD type J44.9 ; Major depression in remission F32.5 and Hyperlipidemia, unspecified hyperlipidemia type E78.5 [facility] [id number] [address] Sep, [facility] [id number] [place] [address] Aug, Other chronic pain G89.29 ; Cigarette smoker motivated to quit F17.200 and Chronic cough R05 [place] [id number] [place] [address] Aug, GERD with esophagitis K21.0 and Damian''s esophagus without dysplasia K22.70 [facility] [address] [address] 07 Jul, 2018 Acute sinusitis J01.90 and Acute bronchitis J20.[address] [address] Jul, Arthritis M19.90 [place] [id number] [place] [address] Jun, Arthritis M19.90 [place] [address] [address] May, Damian''s esophagus without dysplasia K22.70 ; Other chronic pain G89.29 ; Low back pain M54.5 ; Arthritis M19.90 ; Insomnia, unspecified type G47.00 ; GERD with esophagitis K21.0 and Anxiety, generalized F41.1 [place] [id number] [place] [address] May, [place] [id number] [place] [address] Jan, Other chronic pain G89.29 [place] [id number] [place] [address] Nov, Other chronic pain G89.29 [place] [id number] [place] [address] Oct, Other chronic pain G89.29 [place] [id number] [place] [address] Sep, Moderate episode of recurrent major depressive disorder F33.1 ; GERD with esophagitis K21.0 ; Erectile dysfunction, unspecified erectile dysfunction type N52.9 ; Other chronic pain G89.29 ; Damian''s esophagus without dysplasia K22.70 and Mixed hyperlipidemia E78.2 [place] [id number] [place] [address] Sep, Low back pain M54.5 [place] [address] [address] Aug, GERD with esophagitis K21.0 ; Reactive depression F32.9 ; Chronic fatigue R53.82 ; Arthritis M19.90 ; Other chronic pain G89.29 and Low back pain M54.5 [place] [address] [address] Jul, Encounter to establish care with new doctor Z76.89 [place] [address] [address] Jun, Other chronic pain G89.29 [place] [address] [address] Jun, Other chronic pain G89.29 [place] [address] [address] May, GERD with esophagitis K21.0 and Other chronic pain G89.29 [place] [address] [address] Apr, Low back pain M54.5 [place] [address] [address] Apr, Reactive depression F32.9 [place] [address] [address] Mar, Encounter to establish care with new doctor Z76.89 ; Weight loss, unintentional R63.4 ; Moderate episode of recurrent major depressive disorder F33.1 ; Chronic fatigue R53.82 ; Low back pain M54.5 ; Arthritis M19.90 ; Controlled substance agreement signed Z79.899 and High risk medication use Z79.899 [facility] [id number] [place] [address] Mar, Low back pain M54.5 [facility] [id number] [place] [address] Mar, Reactive depression F32.9 ; Paranoid ideation F22 and Anxiety, generalized F41.1 [facility] [address] [address] Mar, [facility] [id number] [place] [address] Feb, [place] [address] [address] Feb, [place] [address] [address] Feb, Epigastric pain R10.13 ; Weight loss R63.4 and Eustachian tube dysfunction, left H69.82 [place] [id number] [place] [address] Jan, Reactive depression F32.9 and Low back pain M54.5 [place] [id number] [place] [address] 14 Sep, 2016 Reactive depression F32.9 and Irritable bowel syndrome without diarrhea K58.9 [facility] [id number] [place] [address] Aug, [facility] [id number] [place] [address] May, [facility] [address] [address] May, [facility] [id number] [place] [address] Mar, [facility] [id number] [place] [address] Mar, Leukocytosis, unspecified type D72.829 [facility] [id number] [place] [address] Mar, Leukocytosis, unspecified type D72.829 [facility] [id number] [place] [address] Feb, Weight loss R63.4 ; Syncope, unspecified syncope type R55 ; Low back pain M54.5 ; Other chronic pain G89.29 and Reactive depression F32.9 [facility] [id number] [place] [address] Jul, [facility] [id number] [place] [address] May, Arthritis M19.90 [facility] [id number] [place] [address] Apr, Chronic pain 338.29 [facility] [id number] [place] [address] Apr, Anxiety state, unspecified 300.00 [facility] [id number] [place] [address] 17 Jan, 2015 Anxiety state, unspecified 300.00 [facility] [id number] [place] [address] 15 Jan, 2015 Chronic pain 338.29 and Anxiety state, unspecified 300.00 [facility] [id number] [place] [address] 12 Jan, 2015 [facility] [id number] [place] [address] 14 Nov, 2014 [facility] [id number] [place] [address] 13 Nov, 2014 [facility] [id number] [place] [address] Oct, [facility] [place] [facility] [address] [id number] [place] [address] Oct, [facility] [place] [facility] [address] [id number] [place] [address] Oct, [facility] [place] [facility] [address] [id number] [place] [address] Oct, [facility] [place] [facility] [address] [id number] [place] [address] Sep, 2014 [facility] [place] [facility] [address] [id number] [place] [address] Sep, [facility] [place] [facility] [address] [id number] [place] [address] Sep, [facility] [place] [facility] [address] [id number] [place] [address] Sep, [facility] [place] [facility] [address] [id number] [place] [address] May, [facility] [place] [facility] [address] [id number] [place] [address] May, [facility] [place] [facility] [address] [id number] [place] [address] Apr, [facility] [place] [facility] [address] [id number] [place] [address] Apr, [facility] [place] [facility] [address] [id number] [address] Jan, [facility] [place] [facility] [address] [id number] [place] [address] Jan, [facility] [place] [facility] [address] [id number] [place] [address] Jan, [facility] [place] [facility] [address] [id number] [place] [address] Jan, [facility] [place] [facility] [address] [id number] [place] [address] Jan, [facility] [place] [facility] [address] [id number] [place] [address] December, [facility] [place] [facility] [address] [id number] [place] [address] December, [facility] [place] [facility] [address] [id number] [place] [address] Sep, [facility] [place] [facility] [address] [id number] [place] [address] Sep, [facility] [place] [facility] [address] [id number] [place] [address] Aug, [facility] [place] [facility] [address] [id number] [place] [address] Aug, [facility] [place] [facility] [address] [id number] [place] [address] Jun, [facility] [place] [facility] [address] [id number] [place] [address] Jun, [facility] [place] [facility] [address] [facility] [id number] [place] [address] May, [facility] [place] [facility] [address] [facility] [id number] [place] [address] May, [facility] [place] [facility] [address] [id number] [place] [address] May, [facility] [place] [facility] [address] [id number] [place] [address] Feb, [facility] [place] [facility] [address] [id number] [place] [address] Jan, [facility] [place] [facility] [address] [id number] [place] [address] Jan, [facility] [place] [facility] [address] [id number] [place] [address] Jan, [facility] [place] [facility] [address] [id number] [place] [address] Nov, [facility] [place] [facility] [address] [id number] [place] [address] Sep, [facility] [place] [facility] [address] [id number] [place] [address] Aug, [facility] [place] [facility] [address] [id number] [place] [address] Jul, [facility] [place] [facility] [address] [id number] [place] [address] Jul, [facility] [place] [facility] [address] [id number] [place] [address] Jul, [facility] [place] [facility] [address] [id number] [place] [address] Jul, [facility] [place] [facility] [address] [id number] [place] [address] Jul, [facility] [place] [facility] [address] [id number] [place] [address] Jul, [facility] [place] [facility] [address] [id number] [place] [address] Jun, [facility] [place] [facility] [address] [id number] [place] [address] Jun, [facility] [place] [facility] [address] [id number] [address] Jun, [facility] [place] [facility] [address] [id number] [place] [address] Jun, [facility] [place] [facility] [address] [id number] [place] [address] Feb, [facility] [place] [facility] [address] [id number] [place] [address] Jan, [facility] [place] [facility] [address] [id number] [address] Jan, [facility] [address] [facility] [id number] [place] [address] Feb, [facility] [address] [facility] [id number] [address] Jan, IMMUNIZATIONS No Known Immunizations SOCIAL HISTORY Never Assessed REASON FOR VISIT PLAN OF CARE VITAL SIGNS Height 69 in 2014-11-06 Weight 158 lbs 2014-11-06 Temperature 99.1 degrees Fahrenheit 2014-11-06 Heart Rate 80 bpm 2014-11-06 Respiratory Rate 24 2014-11-06 Blood pressure systolic 110 mmHg 2014-11-06 Blood pressure diastolic 72 mmHg 2014-11-06 MEDICATIONS No Known Medications RESULTS No Results [...]
--- NOTE | 2019-03-07 08:43 | NUR ---
pt remains alert [facility] 15. stepped out earlier to make some phone calls. pt with no acute sighns of dyspnea noted. p ox on neb tx is 100. pt expresses no needs.
--- OUTSIDE RECORDS SUMMARY | 2019-03-07 08:43 | XMS REPORT ---
Author Author Migration, Doctor Organization [facility] Address Unknown Phone Unavailable Care Team Providers Care Head Of Merchandise Buying Name Role Phone Migration, Doctor Unavailable Unavailable PROBLEMS Type Condition ICD9-CM Code WTN08-YP Code Onset Dates Condition Status SNOMED Code Problem Damian''s esophagus without dysplasia K22.70 Active 445250388 Problem Eosinophilia D72.1 Active 583834144 Problem Mixed hyperlipidemia E78.2 Active 885063943 Problem Anxiety, generalized F41.1 Active 50651858 Problem Paranoid ideation F22 Active 728472965 Problem Moderate episode of recurrent major depressive disorder F33.1 Active 236813914 Problem GERD with esophagitis K21.0 Active 866783280 Problem Other chronic pain G89.29 Active 93828630 Problem Cigarette smoker motivated to quit F17.200 Active 70120854 Problem Low back pain M54.5 Active 076717636 Problem Chronic fatigue R53.82 Active 20011767 Problem Arthritis M19.90 Active 3862715 Problem Erectile dysfunction, unspecified erectile dysfunction type N52.9 Active 793448702 Problem Insomnia, unspecified type G47.00 Active 444132913 ALLERGIES No Information ENCOUNTERS Encounter Location Date Diagnosis [facility] [place] [id number] [place] [address] 12 Sep, 2018 [facility] [place] [address] [address] Aug, Other chronic pain G89.29 ; Cigarette smoker motivated to quit F17.200 and Chronic cough R05 [facility] [place] [address] [address] Aug, GERD with esophagitis K21.0 and Damian''s esophagus without dysplasia K22.70 [facility] [id number] [place] [address] 07 Jul, 2018 Acute sinusitis J01.90 and Acute bronchitis J20.9 [place] [id number] [place] [address] Jul, Arthritis M19.90 [place] [address] [address] Jun, Arthritis M19.90 [place] [id number] [place] [address] May, Damian''s esophagus without dysplasia K22.70 ; Other chronic pain G89.29 ; Low back pain M54.5 ; Arthritis M19.90 ; Insomnia, unspecified type G47.00 ; GERD with esophagitis K21.0 and Anxiety, generalized F41.1 [place] [id number] [place] [address] May, [place] [address] [address] Jan, Other chronic pain G89.29 [place] [id number] [place] [address] Nov, Other chronic pain G89.29 [place] [id number] [place] [address] Oct, Other chronic pain G89.29 [place] [id number] [place] [address] Sep, Moderate episode of recurrent major depressive disorder F33.1 ; GERD with esophagitis K21.0 ; Erectile dysfunction, unspecified erectile dysfunction type N52.9 ; Other chronic pain G89.29 ; Damian''s esophagus without dysplasia K22.70 and Mixed hyperlipidemia E78.2 [place] [id number] [place] [address] Sep, Low back pain M54.5 [place] [id number] [place] [address] Aug, GERD with esophagitis K21.0 ; Reactive depression F32.9 ; Chronic fatigue R53.82 ; Arthritis M19.90 ; Other chronic pain G89.29 and Low back pain M54.5 [place] [id number] [place] [address] Jul, Encounter to establish care with new doctor Z76.89 [place] [id number] [place] [address] Jun, Other chronic pain G89.29 [place] [address] [address] Jun, Other chronic pain G89.29 [place] [address] [address] May, GERD with esophagitis K21.0 and Other chronic pain G89.29 [place] [address] [address] Apr, Low back pain M54.5 [place] [address] [address] Apr, Reactive depression F32.9 [place] [id number] [place] [address] Mar, Encounter to establish care with new doctor Z76.89 ; Weight loss, unintentional R63.4 ; Moderate episode of recurrent major depressive disorder F33.1 ; Chronic fatigue R53.82 ; Low back pain M54.5 ; Arthritis M19.90 ; Controlled substance agreement signed Z79.899 and High risk medication use Z79.899 [place] [id number] [place] [address] Mar, Low back pain M54.5 [place] [id number] [place] [address] Mar, Reactive depression F32.9 ; Paranoid ideation F22 and Anxiety, generalized F41.1 [place] [id number] [place] [address] Mar, [place] [address] Feb, [facility] [place] [id number] [place] [address] Feb, [facility] [place] [id number] [place] [address] Feb, Epigastric pain R10.13 ; Weight loss R63.4 and Eustachian tube dysfunction, left H69.82 [facility] [place] [id number] [place] [address] Jan, Reactive depression F32.9 and Low back pain M54.5 [place] [id number] [place] [address] 14 Sep, 2016 Reactive depression F32.9 and Irritable bowel syndrome without diarrhea K58.9 [place] [id number] [place] [address] Aug, [facility] [place] [id number] [place] [address] May, [facility] [place] [id number] [place] [address] May, [place] [id number] [place] [address] Mar, [place] [address] [place] [address] Mar, Leukocytosis, unspecified type D72.829 [facility] [place] [address] [place] [address] Mar, Leukocytosis, unspecified type D72.829 [facility] [place] [address] [place] [address] Feb, Weight loss R63.4 ; Syncope, unspecified syncope type R55 ; Low back pain M54.5 ; Other chronic pain G89.29 and Reactive depression F32.9 [facility] [place] [address] [address] 30 Jul, 2015 [facility] [place] [address] [place] [address] May, Arthritis M19.90 [facility] [place] [address] [address] 22 Apr, 2015 Chronic pain 338.29 [facility] [place] [id number] [place] [address] Apr, Anxiety state, unspecified 300.00 [facility] [place] [id number] [place] [address] 17 Jan, 2015 Anxiety state, unspecified 300.00 [facility] [place] [id number] [place] [address] 15 Jan, 2015 Chronic pain 338.29 and Anxiety state, unspecified 300.00 [facility] [place] [address] [address] 12 Jan, 2015 [facility] [place] [id number] [place] [address] 14 Nov, 2014 [facility] [place] [address] [address] Nov, [facility] [place] [address], [place] [address] Oct, [facility] [place] [address] [address] Oct, [facility] [place] [address], [place] [address] Oct, [facility] [place] [address], [place] [address] Oct, [facility] [place] [address], [place] [address] 16 Sep, 2014 [facility] [place] [id number] [place] [address] Sep, [facility] [place] [facility] [address] [id number] [place] [address] Sep, [facility] [place] [facility] [address] [id number] [place] [address] Sep, [facility] [place] [facility] [address] [id number] [place] [address] May, [facility] [place] [facility] [address] [id number] [place] [address] May, [facility] [place] [facility] [address] [id number] [place] [address] Apr, [facility] [place] [facility] [address] [id number] [place] [address] Apr, [facility] [place] [facility] [address] [facility] [id number] [place] [address] Jan, [facility] [place] [facility] [address] [facility] [id number] [place] [address] Jan, [facility] [place] [facility] [address] [facility] [id number] [place] [address] Jan, [facility] [place] [facility] [address] [facility] [id number] [place] [address] Jan, [facility] [place] [facility] [address] [id number] [place] [address] Jan, [facility] [place] [facility] [address] [facility] [id number] [place] [address] December, [facility] [place] [facility] [address] [id number] [place] [address] December, [facility] [place] [facility] [address] [facility] [id number] [place] [address] Sep, [facility] [place] [facility] [address] [id number] [place] [address] Sep, [facility] [place] [facility] [address] [id number] [place] [address] Aug, [facility] [place] [facility] [address] [id number] [place] [address] Aug, [facility] [place] [facility] [address] [id number] [place] [address] Jun, [facility] [place] [facility] [address] [id number] [place] [address] Jun, [facility] [place] [facility] [address] [id number] [place] [address] May, [facility] [place] [facility] [address] [id number] [place] [address] May, [facility] [place] [facility] [address] [id number] [place] [address] May, [facility] [place] [facility] [address] [id number] [place] [address] Feb, [facility] [place] [facility] [address] [id number] [place] [address] Jan, [facility] [place] [facility] [address] [id number] [place] [address] Jan, [facility] [place] [facility] [address] [id number] [place] [address] Jan, [facility] [place] [facility] [address] [id number] [address] Nov, [facility] [place] [facility] [address] [id number] [place] [address] Sep, [facility] [place] [facility] [address] [id number] [place] [address] Aug, [facility] [place] [facility] [address] [id number] [place] [address] Jul, [facility] [place] [facility] [address], [place] [address] Jul, [facility] [place] [address], [place] [address] Jul, [facility] [place] [address], [place] [address] Jul, [facility] [place] [address], [place] [address] Jul, [facility] [place] [address], [place] [address] Jul, [facility] [place] [address], [place] [address] Jun, [facility] [place] [address], [place] [address] Jun, [facility] [place] [address], [place] [address] Jun, [facility] [place] [address], [place] [address] Jun, [facility] [place] [address], [place] [address] Feb, [facility] [place] [address], [place] [address] Jan, [facility] [place] [id number] [address] Jan, [facility] [place] [id number], [place] [address] Feb, [facility] [place] [address], [place] [address] Jan, IMMUNIZATIONS No Known Immunizations SOCIAL HISTORY Never Assessed REASON FOR VISIT EMR-[facility] PLAN OF CARE VITAL SIGNS MEDICATIONS Medication Instructions Dosage Frequency Start Date End Date Duration Status Klonopin 0.5 mg 1 tablet by Oral route 1 time per day PRN anxiety Oct, Active Zoloft 100 mg take 1 tablet by Oral route 1 time per day Take at HS; voucher if possible Oct, Active tramadol 50 mg take 1 tablet by Oral route every 6 hours as needed PRN pain Sep, Active Depakote 250 mg take 2 tablet by Oral route 2 times per day voucher, please Oct, Active Vistaril 25 mg take 1 capsule by Oral route 2 times per day Oct, Active Abilify 15 mg 1 tablet by Oral route 1 time per day Oct, Active RESULTS No Results PROCEDURES No Known [...]
--- OUTSIDE RECORDS SUMMARY | 2019-03-07 08:43 | XMS REPORT ---
Author Author Migration, Doctor Organization [facility] Address Unknown Phone Unavailable Care Team Providers Care Hearing Aid Repairer Name Role Phone Migration, Doctor Unavailable Unavailable PROBLEMS Type Condition ICD9-CM Code QBL10-HX Code Onset Dates Condition Status SNOMED Code Problem Damian''s esophagus without dysplasia K22.70 Active 927935398 Problem Eosinophilia D72.1 Active 906769809 Problem Mixed hyperlipidemia E78.2 Active 482887182 Problem Anxiety, generalized F41.1 Active 05102316 Problem Paranoid ideation F22 Active 318693987 Problem Moderate episode of recurrent major depressive disorder F33.1 Active 472098278 Problem GERD with esophagitis K21.0 Active 051192315 Problem Other chronic pain G89.29 Active 82955934 Problem Cigarette smoker motivated to quit F17.200 Active 16283114 Problem Low back pain M54.5 Active 716023857 Problem Chronic fatigue R53.82 Active 53582772 Problem Arthritis M19.90 Active 3534646 Problem Erectile dysfunction, unspecified erectile dysfunction type N52.9 Active 287458837 Problem Insomnia, unspecified type G47.00 Active 768300738 ALLERGIES No Information ENCOUNTERS Encounter Location Date Diagnosis [facility] [id number] [place] [address] 12 Sep, 2018 [facility] [address] [address] Aug, Other chronic pain G89.29 ; Cigarette smoker motivated to quit F17.200 and Chronic cough R05 [facility] [address] [address] Aug, GERD with esophagitis K21.0 and Damian''s esophagus without dysplasia K22.70 [facility] [id number] [place] [address] 07 Jul, 2018 Acute sinusitis J01.90 and Acute bronchitis J20.9 [facility] [id number] [place] [address] Jul, Arthritis M19.90 [facility] [address] [address] Jun, Arthritis M19.90 [facility] [id number] [place] [address] May, Damian''s esophagus without dysplasia K22.70 ; Other chronic pain G89.29 ; Low back pain M54.5 ; Arthritis M19.90 ; Insomnia, unspecified type G47.00 ; GERD with esophagitis K21.0 and Anxiety, generalized F41.1 [facility] [id number] [place] [address] May, [address] [address] [address] [address] Jan, Other chronic pain G89.29 [facility] [id number] [place] [address] Nov, Other chronic pain G89.29 [facility] [id number] [place] [address] Oct, Other chronic pain G89.29 [facility] [id number] [place] [address] Sep, Moderate episode of recurrent major depressive disorder F33.1 ; GERD with esophagitis K21.0 ; Erectile dysfunction, unspecified erectile dysfunction type N52.9 ; Other chronic pain G89.29 ; Damian''s esophagus without dysplasia K22.70 and Mixed hyperlipidemia E78.2 [facility] [id number] [place] [address] Sep, Low back pain M54.5 [facility] [id number] [place] [address] Aug, GERD with esophagitis K21.0 ; Reactive depression F32.9 ; Chronic fatigue R53.82 ; Arthritis M19.90 ; Other chronic pain G89.29 and Low back pain M54.5 [facility] [id number] [place] [address] Jul, Encounter to establish care with new doctor Z76.89 [facility] [id number] [place] [address] Jun, Other chronic pain G89.29 [address] [address] [address] Jun, Other chronic pain G89.29 [address] [address] [address] May, GERD with esophagitis K21.0 and Other chronic pain G89.29 [facility] [address] [address] Apr, Low back pain M54.5 [address] [address] [address] Apr, Reactive depression F32.9 [facility] [id number] [place] [address] Mar, Encounter to establish care with new doctor Z76.89 ; Weight loss, unintentional R63.4 ; Moderate episode of recurrent major depressive disorder F33.1 ; Chronic fatigue R53.82 ; Low back pain M54.5 ; Arthritis M19.90 ; Controlled substance agreement signed Z79.899 and High risk medication use Z79.899 [facility] [id number] [place] [address] Mar, Low back pain M54.5 [facility] [id number] [place] [address] Mar, Reactive depression F32.9 ; Paranoid ideation F22 and Anxiety, generalized F41.1 [facility] [id number] [place] [address] Mar, [facility] [address] [place] [address] Feb, [facility] [id number] [place] [address] Feb, [facility] [id number] [place] [address] Feb, Epigastric pain R10.13 ; Weight loss R63.4 and Eustachian tube dysfunction, left H69.82 [facility] [id number] [place] [address] Jan, Reactive depression F32.9 and Low back pain M54.5 [facility] [id number] [place] [address] 14 Sep, 2016 Reactive depression F32.9 and Irritable bowel syndrome without diarrhea K58.9 [facility] [id number] [place] [address] Aug, [facility] [id number] [place] [address] May, [facility] [id number] [place] [address] May, [facility] [id number] [place] [address] Mar, [facility] [id number] [place] [address] Mar, Leukocytosis, unspecified type D72.829 [facility] [id number] [place] [address] Mar, Leukocytosis, unspecified type D72.829 [facility] [address] [place] [address] Feb, Weight loss R63.4 ; Syncope, unspecified syncope type R55 ; Low back pain M54.5 ; Other chronic pain G89.29 and Reactive depression F32.9 [facility] [address] [address] 30 Jul, 2015 [facility] [id number] [place] [address] May, Arthritis M19.90 [facility] [address] [address] 22 Apr, 2015 Chronic pain 338.29 [facility] [id number] [place] [address] Apr, Anxiety state, unspecified 300.00 [facility] [id number] [place] [address] 17 Jan, 2015 Anxiety state, unspecified 300.00 [facility] [id number] [place] [address] 15 Jan, 2015 Chronic pain 338.29 and Anxiety state, unspecified 300.00 [facility] [address] [address] 12 Jan, 2015 [facility] [id number] [place] [address] 14 Nov, 2014 [facility] [address] [address] Nov, [facility] [address] [address] Oct, [facility] [address] [place] [address] Oct, [facility] [address] [place] [address] Oct, [facility] [address] [place] [address] Oct, [facility] [address] [place] [address] 16 Sep, 2014 [facility] [id number] [place] [address] Sep, [facility] [place] [facility] [address] [id number] [place] [address] Sep, [facility] [place] [facility] [address] [id number] [place] [address] Sep, [facility] [place] [facility] [address] [id number] [place] [address] May, [facility] [place] [facility] [address] [id number] [place] [address] May, [facility] [place] [facility] [address] [id number] [place] [address] Apr, [facility] [place] [facility] [address] [id number] [place] [address] Apr, [facility] [place] [facility] [address] [facility] [id number] [place] [address] Jan, [facility] [place] [facility] [address] [facility] [id number] [place] [address] Jan, [facility] [place] [facility] [address] [facility] [id number] [place] [address] Jan, [facility] [place] [facility] [address] [facility] [id number] [place] [address] Jan, [facility] [place] [facility] [address] [id number] [place] [address] Jan, [facility] [place] [facility] [address] [facility] [id number] [place] [address] December, [facility] [place] [facility] [address] [id number] [place] [address] December, [facility] [place] [facility] [address] [facility] [id number] [place] [address] Sep, [facility] [place] [facility] [address] [id number] [place] [address] Sep, [facility] [place] [facility] [address] [id number] [place] [address] Aug, [facility] [place] [facility] [address] [id number] [place] [address] Aug, [facility] [place] [facility] [address] [id number] [place] [address] Jun, [facility] [place] [facility] [address] [id number] [place] [address] Jun, [facility] [place] [facility] [address] [id number] [place] [address] May, [facility] [place] [facility] [address] [id number] [place] [address] May, [facility] [place] [facility] [address] [id number] [place] [address] May, [facility] [place] [facility] [address] [id number] [place] [address] Feb, [facility] [place] [facility] [address] [id number] [place] [address] Jan, [facility] [place] [facility] [address] [id number] [place] [address] Jan, [facility] [place] [facility] [address] [id number] [place] [address] Jan, [facility] [place] [facility] [address] [id number], [place] [address] Nov, [facility] [place] [facility] [address] [id number] [place] [address] Sep, [facility] [place] [facility] [address] [id number] [place] [address] Aug, [facility] [place] [facility] [address] [id number] [place] [address] Jul, [facility] [place] [facility] [address], [place] [address] Jul, [facility] [address], [place] [address] Jul, [facility] [address], [place] [address] Jul, [facility] [address], [place] [address] Jul, [facility] [address], [place] [address] Jul, [facility] [id number] [place] [address] Jun, [facility] [address], [place] [address] Jun, [facility] [address], [place] [address] Jun, [facility] [address], [place] [address] Jun, [facility] [address], [place] [address] Feb, [facility] [address], [place] [address] Jan, [facility] [address], [place] [address] Jan, [facility] [address], [place] [address] Feb, [facility] [address], [place] [address] Jan, IMMUNIZATIONS No Known Immunizations SOCIAL HISTORY Never Assessed [place]AS[place] [place] VITAL SIGNS MEDICATIONS Unknown [...]
--- OUTSIDE RECORDS SUMMARY | 2019-03-07 08:48 | XMS REPORT | Continuity of Care Document ---
Author Organization Unknown Address Unknown Allergies Active Description Code Type Severity Reaction Onset Reported/Identified Relationship to Patient Clinical Status Yes NO KNOWN DRUG ALLERGIES UNKNOWN NO KNOWN DRUG ALLERG Yes NO KNOWN DRUG ALLERGIES UNKNOWN UNKNOWN Yes morphine [id number] Drug Allergy Unknown NAUSEA 06/21/2016 Yes morphine [id number] Drug Allergy Mild NAUSEA 10/08/2018 Medications There is no data. Problems Date Dx Coded Attending Type Code Diagnosis Diagnosed By 02/09/2011 789.00 ABDOMINAL PAIN UNSPECIFIED SITE 02/09/2011 GORDON SALMON MD 789.00 ABDOMINAL PAIN UNSPECIFIED SITE 02/09/2011 789.00 [...] MD 604.90 Orchitis And Epididymitis Unspecified 03/09/2011 GORDON [...] ESOPHAGUS CAUSING OTHER INJURY, 06/22/2016 ROBERT ZHANG FLAT IRONER Ot F17.210 NICOTINE DEPENDENCE, CIGARETTES, UNCOMPL 06/22/2016 [...] 07/10/2017 JEFFREY RICHMOND DO Ot K92.1 MELENA 10/04/2018 JEFFREY RICHMOND DO Ot Z01.818 ENCOUNTER FOR OTHER PREPROCEDURAL EXAMIN 10/07/2018 JEFFREY RICHMOND DO Ot Z01.818 ENCOUNTER FOR OTHER PREPROCEDURAL EXAMIN 10/08/2018 JEFFREY RICHMOND DO Ot F17.210 NICOTINE DEPENDENCE, CIGARETTES, UNCOMPL 10/08/2018 JEFFREY RICHMOND DO Ot 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 10/08/2018 JEFFREY RICHMOND DO Ot K44.9 DIAPHRAGMATIC HERNIA WITHOUT OBSTRUCTION 10/08/2018 JEFFREY RICHMOND DO Ot K52.9 NONINFECTIVE GASTROENTERITIS AND COLITIS 10/08/2018 JEFFREY RICHMOND DO Ot K63.5 POLYP OF COLON 10/08/2018 JEFFREY RICHMOND DO Ot Z79.899 OTHER SNF (CURRENT) DRUG THERAPY 10/14/2018 JEFFREY RICHMOND DO Ot F17.210 NICOTINE DEPENDENCE, CIGARETTES, UNCOMPL 10/14/2018 JEFFREY RICHMOND DO Ot 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 10/14/2018 JEFFREY RICHMOND DO Ot K44.9 DIAPHRAGMATIC HERNIA WITHOUT OBSTRUCTION 10/14/2018 JEFFREY RICHMOND DO Ot K52.9 NONINFECTIVE GASTROENTERITIS AND COLITIS 10/14/2018 JEFFREY RICHMOND DO Ot K63.5 POLYP OF COLON 10/14/2018 JEFFREY RICHMOND DO Ot Z79.899 OTHER MOHS SURGEON (CURRENT) DRUG THERAPY 11/01/2018 JEFFREY RICHMOND DO Ot F17.210 NICOTINE DEPENDENCE, CIGARETTES, UNCOMPL 11/01/2018 JEFFREY RICHMOND DO Ot 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 11/01/2018 JEFFREY RICHMOND DO Ot K44.9 DIAPHRAGMATIC HERNIA WITHOUT OBSTRUCTION 11/01/2018 JEFFREY RICHMOND DO Ot K52.9 NONINFECTIVE GASTROENTERITIS AND COLITIS 11/01/2018 JEFFREY RICHMOND DO Ot K63.5 POLYP OF COLON 11/01/2018 JEFFREY RICHMOND DO Ot Z79.899 OTHER SNF (CURRENT) DRUG THERAPY 11/04/2018 JEFFREY RICHMOND DO Ot F17.210 NICOTINE DEPENDENCE, CIGARETTES, UNCOMPL 11/04/2018 JEFFREY RICHMOND DO Ot 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 11/04/2018 JEFFREY RICHMOND DO Ot K44.9 DIAPHRAGMATIC HERNIA WITHOUT OBSTRUCTION 11/04/2018 JEFFREY RICHMOND DO Ot K52.9 NONINFECTIVE GASTROENTERITIS AND COLITIS 11/04/2018 JEFFREY RICHMOND DO Ot K63.5 POLYP OF COLON 11/04/2018 JEFFREY RICHMOND DO Ot Z79.899 OTHER SNF (CURRENT) DRUG THERAPY 11/21/2018 JEFFREY RICHMOND DO Ot R13.10 DYSPHAGIA, UNSPECIFIED 11/27/2018 STONEY BOSCH DO, Ot J30.9 ALLERGIC RHINITIS, UNSPECIFIED 11/27/2018 STONEY BOSCH DO, Ot J43.2 CENTRILOBULAR EMPHYSEMA 11/27/2018 STONEY BOSCH DO, Ot R13.10 DYSPHAGIA, UNSPECIFIED 11/27/2018 STONEY BOSCH DO Ot R59.0 LOCALIZED ENLARGED LYMPH NODES 11/27/2018 STONEY BOSCH DO Ot R63.4 ABNORMAL WEIGHT LOSS 11/27/2018 STONEY BOSCH DO Ot Z72.0 TOBACCO USE 11/29/2018 STONEY BOSCH DO Ot Z01.818 ENCOUNTER FOR OTHER PREPROCEDURAL EXAMIN 12/06/2018 JEFFREY RICHMOND DO Ot R13.10 DYSPHAGIA, UNSPECIFIED 12/06/2018 STONEY BOSCH DO Ot Z01.818 ENCOUNTER FOR OTHER PREPROCEDURAL EXAMIN 12/06/2018 STONEY BOSCH DO, Ot Z01.818 ENCOUNTER FOR OTHER PREPROCEDURAL EXAMIN 12/12/2018 STONEY BOSCH DO, Ot F17.210 NICOTINE DEPENDENCE, CIGARETTES, UNCOMPL 12/12/2018 STONEY BOSCH DO, Ot J30.9 ALLERGIC RHINITIS, UNSPECIFIED 12/12/2018 STONEY BOSCH DO Ot R06.09 OTHER FORMS OF DYSPNEA 12/12/2018 STONEY BOSCH DO Ot R63.4 ABNORMAL WEIGHT LOSS 12/12/2018 STONEY BOSCH DO, Ot Z79.899 OTHER SNF (CURRENT) DRUG THERAPY 12/16/2018 STONEY BOSCH DO Ot F17.210 NICOTINE DEPENDENCE, CIGARETTES, UNCOMPL 12/16/2018 TSONEY BOSCH DO Ot J30.9 ALLERGIC RHINITIS, UNSPECIFIED 12/16/2018 STONEY BOSCH DO Ot R06.09 OTHER FORMS OF DYSPNEA 12/16/2018 STONEY BOSCH DO Ot R63.4 ABNORMAL WEIGHT LOSS 12/16/2018 STONEY BOSCH DO Ot Z79.899 OTHER MOHS SURGEON (CURRENT) DRUG THERAPY 12/16/2018 STONEY BOSCH DO Ot J30.9 ALLERGIC RHINITIS, UNSPECIFIED 12/16/2018 STONEY BOSCH DO Ot J43.2 CENTRILOBULAR EMPHYSEMA 12/16/2018 STONEY BOSCH DO Ot R13.10 DYSPHAGIA, UNSPECIFIED 12/16/2018 STONEY BOSCH DO Ot R59.0 LOCALIZED ENLARGED LYMPH NODES 12/16/2018 STONEY BOSCH DO Ot R63.4 ABNORMAL WEIGHT LOSS 12/16/2018 STONEY BOSCH DO Ot Z72.0 TOBACCO USE 12/18/2018 STONEY BOSCH DO Ot F17.210 NICOTINE DEPENDENCE, CIGARETTES, UNCOMPL 12/18/2018 STONEY BOSCH DO Ot J30.9 ALLERGIC RHINITIS, UNSPECIFIED 12/18/2018 STONEY BOSCH DO Ot R06.09 OTHER FORMS OF DYSPNEA 12/18/2018 STONEY BOSCH DO Ot R63.4 ABNORMAL WEIGHT LOSS 12/18/2018 STONEY BOSCH DO Ot Z79.899 OTHER MOHS SURGEON (CURRENT) DRUG THERAPY 12/26/2018 STONEY BOSCH DO Ot J30.9 ALLERGIC RHINITIS, UNSPECIFIED 12/26/2018 STONEY BOSCH DO Ot R06.00 DYSPNEA, UNSPECIFIED 12/26/2018 STONEY BOSCH DO Ot R13.10 DYSPHAGIA, UNSPECIFIED 12/26/2018 STONEY BOSCH DO Ot R63.4 ABNORMAL WEIGHT LOSS 12/26/2018 STONEY BOSCH DO Ot Z72.0 TOBACCO USE Procedures Code Description Performed By Performed On 45.16 01/23/2012 93878 ROUTINE VENIPUNCTURE 07/01/2012 53665 CBC 07/01/2012 81676 CMP 07/01/2012 [id number] GFR CALC (RESULT ONLY) 07/01/2012 44655 URINE DRUG SCREEN (IN-HOUSE) 08/05/2012 60018 ROUTINE VENIPUNCTURE 01/28/2013 92471 URINE DRUG SCREEN (IN-HOUSE) 01/28/2013 69409 CBC 01/28/2013 72380 CMP 01/28/2013 [id number] GFR CALC (RESULT ONLY) 01/28/2013 40014 ROUTINE VENIPUNCTURE 01/29/2014 [id number] GFR CALC (RESULT ONLY) 01/30/2014 35867 CMP 01/30/2014 47803 ROUTINE VENIPUNCTURE 10/08/2014 85505 CBC 10/08/2014 64422 CMP 10/08/2014 [id number] GFR CALC (RESULT ONLY) 10/08/2014 99880 TSH 10/08/2014 56834 PSYCH DIAG EVDANIEL W/MED SRVCS 12/07/2014 Results Test Result Range [...] Automated erythrocyte mean corpuscular hemoglobin concentration measurement (mass/volume) 34 g/dL 32-36 Automated erythrocyte distribution width ratio 13.9 % 10.0- 14.5 Automated blood platelet count (count/volume) 401 10*3/uL [...] Blood monocytes automated count (number/volume) 1.1 10*3 0.0- 1.0 Automated eosinophil count 0.6 10*3/uL 0.0-0.3 Automated [...] Serum or plasma aspartate aminotransferase measurement (enzymatic activity/volume) 16 U/L 5-34 Serum or plasma alanine aminotransferase measurement (enzymatic activity/volume) 11 U/L 0-55 Serum or plasma protein measurement (mass/volume) 7.9 g/dL 6.4-8.2 Serum or plasma albumin measurement (mass/volume) 4.5 g/dL 3.2-4.5 THYROID ANALYZER - 09/24/17 08:59 TSH 3.37 mIU/L 0.40-4.50 Drug Screen + ETOH - 04/23/18 08:15 General Maintenance Technician Laverne Nichols Donor ID By Photo ID Ethanol, Urine <10.00 mg/dL 20.00-80.00 Location [facility] Reason For Test Pre-Employment Temperature In Range YES Deg F 90.00-100.00 Urine Amphetamines NEGATIVE Urine Barbiturates NEGATIVE Urine Benzodiazepines NEGATIVE Urine Cocaine NEGATIVE Urine MDMA NEGATIVE Urine Methadone NEGATIVE Urine Methamphetamines NEGATIVE Urine Opiates NEGATIVE Urine Oxycodone NEGATIVE Urine PCP NEGATIVE Urine THC Metabolite NEGATIVE SPECIMEN ID NOTIFICATION$MISSING SECOND ID - 07/31/18 17:04 COMMENT: NRG Arterial blood gas measurement - 11/25/18 10:53 Blood pCO2 40 mm[Hg] 35-45 Blood pO2 78 mm[Hg] 79-93 Arterial blood bicarbonate measurement (moles/volume) 25 mmol/L 23-27 Arterial blood base excess by calculation 0.6 mmol/L -2.5-2.5 Arterial blood oxygen saturation measurement 98 % 94-100 * Inhaled oxygen flow rate RA NRG Arterial blood pH measurement with patient temperature correction 7.40 7.37-7.43 Arterial blood carbon dioxide, total measurement (moles/volume) 26.5 mmol/L 21.0-31.0 Body site R RAD NRG Assessment of wrist artery patency prior to arterial puncture YES-POS NRG Setting of ventilation mode NO NRG Measurement of body temperature 96.0 NRG Sputum Gram stain - 12/12/18 11:59 Sputum Gram stain 12-13-18604. NRG Bacteria identification in bronchial specimen by aerobe culture - 12/12/18 11:59 QUANTITY OF GROWTH . NRG Bacteria identification in bronchial specimen by aerobe culture USUAL RESP NRG FTX;REPORTABLE >10,000 CFU/ML NRG C FUNGUS SPUTUM FLUID TISSUE - 12/12/18 11:59 QUANTITY OF GROWTH FEW NRG C FUNGUS SPUTUM FLUID TISSUE [id number] NRG Mycobacterium species detection by organism specific culture - 12/12/18 12:00 Thyroid Stimulating Hormone - 02/06/19 06:47 TSH 2.37 mIU/mL 0.32-5.00 Complete blood count (CBC) with automated white blood cell (WBC) differential - 03/07/19 07:43 Blood leukocytes automated count (number/volume) 11.3 10*3/uL 4.3-11.0 Blood erythrocytes automated count (number/volume) 4.78 10*6/uL 4.35-5.85 Venous blood hemoglobin measurement (mass/volume) 14.2 g/dL 13.3-17.7 Blood hematocrit (volume fraction) 42 % 40-54 Automated erythrocyte mean corpuscular volume 89 [foz_us] 80-99 Automated erythrocyte mean corpuscular hemoglobin (mass per erythrocyte) 30 pg 25-34 Automated erythrocyte mean corpuscular hemoglobin concentration measurement (mass/volume) 34 g/dL 32-36 Automated erythrocyte distribution width ratio 13.3 % 10.0- 14.5 Automated blood platelet count (count/volume) 374 10*3/uL 130-400 Automated blood platelet mean volume measurement 9.3 [foz_us] 7.4-10.4 Automated blood neutrophils/100 leukocytes 65 % 42-75 Automated blood lymphocytes/100 leukocytes 19 % 12-44 Blood monocytes/100 leukocytes 9 % 0-12 Automated blood eosinophils/100 leukocytes 7 % 0-10 Automated blood basophils/100 leukocytes 1 % 0-10 Blood neutrophils automated count (number/volume) 7.3 10*3 1.8-7.8 Blood lymphocytes automated count (number/volume) 2.1 10*3 1.0-4.0 Blood monocytes automated count (number/volume) 1.0 10*3 0.0- 1.0 Automated eosinophil count 0.7 10*3/uL 0.0-0.3 Automated blood basophil count (count/volume) 0.1 10*3/uL 0.0-0.1 Comprehensive metabolic panel - 03/07/19 07:43 Serum or plasma sodium measurement (moles/volume) 140 mmol/L 135-145 Serum or plasma potassium measurement (moles/volume) 4.2 mmol/L 3.6-5.0 Serum or plasma chloride measurement (moles/volume) 105 mmol/L 98-107 Carbon dioxide 24 mmol/L 21-32 Serum or plasma anion gap determination (moles/volume) 11 mmol/L 5-14 Serum or plasma urea nitrogen measurement (mass/volume) 10 mg/dL 7-18 Serum or plasma creatinine measurement (mass/volume) 0.84 mg/dL 0.60-1.30 Serum or plasma urea nitrogen/creatinine mass ratio 12 NRG Serum or plasma creatinine measurement with calculation of estimated glomerular filtration rate > NRG Serum or plasma glucose measurement (mass/volume) 77 mg/dL 70-105 Serum or plasma calcium measurement (mass/volume) 9.7 mg/dL 8.5-10.1 Serum or plasma total bilirubin measurement (mass/volume) 0.3 mg/dL 0.1-1.0 Serum or plasma alkaline phosphatase measurement (enzymatic activity/volume) 80 U/L 40-136 Serum or plasma aspartate aminotransferase measurement (enzymatic activity/volume) 17 U/L 5-34 Serum or plasma alanine aminotransferase measurement (enzymatic activity/volume) 15 U/L 0-55 Serum or plasma protein measurement (mass/volume) 7.4 g/dL 6.4-8.2 Serum or plasma albumin measurement (mass/volume) 4.5 g/dL 3.2-4.5 CALCIUM CORRECTED 9.3 mg/dL 8.5-10.1 Magnesium - 03/07/19 07:43 Magnesium 2.3 mg/dL 1.8-2.4 Serum or plasma troponin i.cardiac measurement (mass/volume) - 03/07/19 07:43 Serum or plasma troponin i.cardiac measurement (mass/volume) < ng/mL <0.028 Myoglobin, serum - 03/07/19 07:43 Myoglobin, serum 36.6 ng/mL 10.0-92.0 Encounters ACCT No. Visit Date/Time Discharge Status Pt. Type Provider Facility Loc./Unit Complaint [id number] 02/06/2019 06:38:00 02/06/2019 23:59:00 DIS Outpatient HOWARD ROONEY [id number] 04/23/2018 08:07:00 04/23/2018 23:59:00 DIS Outpatient UNLISTED, UNLISTED [id number] 11/06/2014 14:34:00 11/06/2014 23:59:59 CLS Outpatient PREMA JAYDONSAVITA [id number] 10/08/2014 14:56:00 10/08/2014 23:59:59 CLS Outpatient GORDON SALMON MD [id number] 06/19/2014 10:36:00 06/19/2014 23:59:59 CLS Outpatient GORDON SALMON MD [id number] 01/29/2014 15:32:00 01/29/2014 23:59:59 CLS Outpatient GORDON SALMON MD [id number] 10/13/2013 15:05:00 10/13/2013 23:59:59 CLS Outpatient GORDON SALMON MD [id number] 06/13/2013 10:42:00 06/13/2013 23:59:59 CLS Outpatient GORDON SALMON MD [id number] 03/11/2013 14:14:00 03/11/2013 23:59:59 CLS Outpatient GORDON SALMON MD [id number] 11/28/2012 14:48:00 11/28/2012 23:59:59 CLS Outpatient [id number] 10/07/2012 14:43:00 10/07/2012 23:59:59 CLS Outpatient [id number] 08/05/2012 14:55:00 08/05/2012 23:59:59 CLS Outpatient GORDON SALMON MD [id number] 07/01/2012 14:53:00 07/01/2012 23:59:59 CLS Outpatient [id number] 07/01/2012 14:53:00 07/01/2012 23:59:59 CLS Outpatient GORDON SALMON MD [id number] 02/21/2013 15:00:00 Document Registration [id number] 01/28/2013 15:13:00 Document Registration [id number] 02/05/2019 13:20:00 02/05/2019 23:59:59 CLS Outpatient HOWARD LOPEZ MD [facility] [id number] 07/31/2018 16:40:00 Document Registration [id number] 09/24/2017 08:20:00 Document Registration [id number] 12/16/2018 07:47:00 12/16/2018 23:59:59 CLS Outpatient STONEY BOSCH DO [facility] RT DYSPHAGIA,DYSPNEA [id number] 12/12/2018 09:48:00 12/12/2018 12:50:00 DIS Outpatient STONEY BOSCH DO [facility] ENDO DYSPHAGIA/DYSPNEA/ [id number] 12/06/2018 13:34:00 12/06/2018 13:38:00 DIS Outpatient STONEY BOSCH DO [facility] PREOP BRONCHOSCOPY [id number] 11/25/2018 10:16:00 11/25/2018 23:59:59 CLS Outpatient STONEY BOSCH DO [facility] RAD DYSPHAGIA [id number] 11/21/2018 10:02:00 11/21/2018 23:59:59 CLS Outpatient JEFFREY RICHMOND DO [facility] RAD DYSPHAGIA [id number] 10/08/2018 14:27:00 10/08/2018 17:45:00 DIS Outpatient JEFFREY RICHMOND DO [facility] ENDO BARDALES'S,DIARRHEA,EPIGASTRIC ABD PAIN,DYSPHAGIA [id number] 10/04/2018 06:26:00 10/04/2018 14:59:00 DIS Outpatient JEFFREY RICHMOND DO [facility] PREOP COLONOSCOPY/EGD [id number] 07/10/2017 09:02:00 07/10/2017 11:30:00 DIS Outpatient JEFFREY RICHMOND DO [facility] ENDO REFLUX/ABD PAIN/BLOOD IN STOOL [id number] 07/03/2017 05:52:00 07/03/2017 11:34:00 DIS Outpatient JEFFREY RICHMOND DO [facility] PREOP REFLUX/ABD PAIN/BLOOD IN STOOL [id number] 06/21/2016 15:18:00 06/21/2016 18:32:00 DIS Emergency ROBERT ZHANG APRN [facility] ER VOMITING [id number] 03/07/2019 07:55:00 Document Registration [id number] 06/17/2012 17:22:00 Document Registration [id number] 05/24/2012 17:35:00 Document Registration [id number] 03/07/2012 15:12:00 Document Registration [id number] 02/10/2012 16:35:00 Document Registration [id number] 01/22/2012 17:08:00 Document Registration [id number] 04/20/2011 15:22:00 Document Registration [id number] 02/16/2011 08:34:00 Document Registration
[2019-03-07] MEDS ORDERED: KETOROLAC 30 MG/ML VIAL IVP STA (08:56)
--- NOTE | 2019-03-07 08:57 | Diagnostic Imaging Report ---
INDICATION: Shortness of breath. Frontal chest obtained at 8:06 a.m. and compared to 12/12/2018. FINDINGS: Heart and mediastinal silhouette are normal in appearance. There is no pneumothorax or pleural fluid. There is no new infiltrate. There are chronic appearing increased interstitial markings. There is some parenchymal scarring in the left midlung. IMPRESSION: Chronic changes as described above with no acute consolidation or pleural fluid. Dictated by: Dictated on workstation # [id number]
[2019-03-07] MEDS ORDERED: predniSONE 20 MG TAB PO ONE (09:00)
--- NOTE | 2019-03-07 09:10 | NUR ---
pt remains alert gcs 15. remains in the room. cough cont. in er. no other acute sighns of dyspnea noted though resp remain shallow nonlabored. lungs decreased wheezing bilaterally but continue. with very slight inc in aeration bilaterally. neb tx continues on 5 liters o2. bp machine is 115/76 ausc hr 68 reg ausc resp 16. recheck temp is 95.9 p ox on 6 is 100. tele shows sr.
--- NOTE | 2019-03-07 09:32 | NUR ---
neb tx completed by me
--- NOTE | 2019-03-07 09:51 | NUR ---
labs from alee dickey and to lab by
--- NOTE | 2019-03-07 11:04 | NUR ---
pt remains alert gcs 15. remains in the room. dr in room going over d/cd instructions. bp machine is 112/62 ausc hr 64 reg ausc resp 16 shallow nonlabored. recheck temp 98.6 p ox r/a is 99. tele shows sr 66. pt has no cough noted in er now. no acute sighns of dyspnea noted.
[2019-03-07] MEDS ORDERED: DOXY100T2 PO (11:10)
[2019-03-07] MEDS ORDERED: PRD20T PO (11:10)
[2019-03-07 11:22] VITALS: BP 112/62
--- NOTE | 2019-03-07 11:22 | NUR ---
d/c instructions to pt. told to read all papers. script faxed. pt left ambulatory with . pt knows f/u. i went over the handtyped by information on the chart. iv d/cd by me prior to d/c. work release given.
== END 2019-03-07 11:22 | disposition home or self-care (01) ==
LOC: EDUNIT# 07:29 → ER 07:30
DX: J44.1 Chronic obstructive pulmonary disease with (acute) exacerbation (principal); K21.9 Gastro-esophageal reflux disease without esophagitis; F17.210 Nicotine dependence, cigarettes, uncomplicated
CPT/HCPCS: 36415; 71045; 80053; 83735; 83874; 84484; 85025; 85610; 85730; 93005; 93041; 94640; 94644; 96374

== ENCOUNTER → 2021-02-02 | Outpatient (CLI) | payer OTHER ==
[~2021-02-02] MED LIST changes: +DOXY100T2 PO; +OMG1KC; +PRD20T PO; +SERT-413 PO; -SERT50TA9 PO; -TRAM50TA2 PO; +VITA100T8; +ZINC50TA11 PO; -ZINC50TA4 PO
--- NOTE | 2021-02-02 10:28 | Diagnostic Imaging Report ---
Cervical spine at 1014 INDICATION: Neck pain 3 views were obtained. There are no prior studies for comparison. The lateral view shows the vertebral heights and alignment to be generally within normal limits. The intervertebral spaces are fairly well-maintained. There is no fracture or acute bony abnormality evident. There is no sign of retropharyngeal edema. The lung apices are clear. IMPRESSION: 1. There is no evidence for an acute bony abnormality. 2. There does not appear to be any significant degenerative disc or bony disease. However if there is clinical concern regarding spinal stenosis or nerve root encroachment, then MRI would be recommended for further study. Dictated by: Dictated on workstation # [id number]
--- NOTE | 2021-02-02 10:35 | Diagnostic Imaging Report ---
INDICATION: COPD. PA and lateral views were obtained. Comparison made with prior examination from 03/07/2019. FINDINGS: There is air trapping compatible with COPD. Heart size is normal. No pleural effusion or pneumothorax. Mediastinum is unremarkable IMPRESSION: COPD. Dictated by: Dictated on workstation # [id number]
== END ==
LOC: RAD 09:49
PROVIDERS: ATTEND Anesthesiology Pain Medicine
DX: Z02.71 Encounter for disability determination (principal); M54.2 Cervicalgia; J44.9 Chronic obstructive pulmonary disease, unspecified
CPT/HCPCS: 71046; 72040

== ENCOUNTER → 2021-03-18 | Outpatient (CLI) | payer OTHER ==
[~2021-03-18] MED LIST changes: +RT-ALBUTEROL SULF 2.5 MG/3 ML PRE-MIX VIAL INH ONE
== END ==
LOC: RT 13:00
PROVIDERS: ATTEND Family Medicine
DX: Z02.71 Encounter for disability determination (principal); J44.9 Chronic obstructive pulmonary disease, unspecified
CPT/HCPCS: 94060

== ENCOUNTER 2022-03-15 05:35 | Outpatient (CLI) | payer MEDICARE, MEDICAID ==
[~2022-03-15] VITALS: Ht 177.8 cm; Wt 68.0 kg
[~2022-03-15 05:35] MED LIST changes: -RT-ALBUTEROL SULF 2.5 MG/3 ML PRE-MIX VIAL INH ONE
[2022-03-15] MEDS ORDERED: MONT-40 PO (14:32)
[2022-03-15] MEDS ORDERED: METO5TAB2 PO (14:32)
[2022-03-15] MEDS ORDERED: PANT40TA52 PO (14:32)
[2022-03-15] MEDS ORDERED: RT-ALBUINH INH (14:32)
[2022-03-15] MEDS ORDERED: BACI1TAB PO (14:32)
[2022-03-15] MEDS ORDERED: TURM500C4 PO (14:32)
[2022-03-15] MEDS ORDERED: SERT-414 PO (14:32)
== END 2022-03-15 14:33 | disposition home or self-care (01) ==
LOC: PREOP 05:35
PROVIDERS: ATTEND Surgery
DX: Z01.818 Encounter for other preprocedural examination (principal)

== ENCOUNTER 2022-03-28 07:43 | Day surgery (SDC) | payer MEDICARE, MEDICAID ==
[~2022-03-28] VITALS: Ht 177.8 cm; Wt 68.0 kg
[~2022-03-28 07:43] MED LIST changes: +BACI1TAB PO; +METO5TAB2 PO; +MONT-40 PO; +PANT40TA52 PO; +RT-ALBUINH INH; +SERT-414 PO; +TURM500C4 PO
[2022-03-28] MEDS ORDERED: LACTATED RINGERS 1,000 ML IV STA (07:53)
[2022-03-28] MEDS ORDERED: HURRICAINE EXT TUBE (BENZOCAINE) XX PRN (08:00)
[2022-03-28 08:05] VITALS: BP 120/75
[2022-03-28] MEDS ORDERED: MIDAZOLAM 2 MG/2 ML (VERSED) VIAL ONE (09:34)
[2022-03-28] MEDS ORDERED: PROPOFOL INJECTION 50 ML IV ONE (09:34)
--- NOTE | 2022-03-28 10:29 | Progress Note-Post Operative ---
Post-Operative Progess Note Surgeon (s)/Retail Bakery Manager (s) Surgeon JEFFREY RICHMOND DO Retail Bakery Manager: na Pre-Operative Diagnosis dysphagia, mathis's, screening colon Post-Operative Diagnosis mathis's, stomach gastric mucosal change, colon polyp x 2 Procedure & Operative Findings Date of Procedure 03/28/22 Procedure Performed/Findings egd c biopsies, colonoscopy c hot bx polypectomy x 2 Anesthesia Type per mda Estimated Blood Loss Estimated blood loss (mL): none Specimens/Packing Specimens Removed antrum, body ge, colon polyps JEFFREY RICHMOND DO Mar 28, 2022 10:29
[2022-03-28 10:32] VITALS: BP 112/63
--- NOTE | 2022-03-28 10:36 | Anesthesia-General Post-Op ---
MAC Post Op Complications Complications None Follow Up Care/Instructions Patient Instructions None needed. Anesthesiology Discharge Order Discharge Order Patient is doing well, resting comfortably, no complaints, stable vital signs, no apparent adverse anesthesia problems. No complications reported per nursing. BESSIE STERN DO Mar 28, 2022 10:36
[2022-03-28 10:37] VITALS: BP 116/65
[2022-03-28 10:42] VITALS: BP 125/59
[2022-03-28 10:45] VITALS: BP 125/59
--- NOTE | 2022-03-28 10:46 | Discharge Inst-Simple/Standard ---
Discharge Inst-Standard Patient Instructions/Follow Up Plan of Care/Instructions/FU: 2 weeks denisse Activity as Tolerated: Yes Discharge Diet: Regular Diet JEFFREY RICHMOND DO Mar 28, 2022 10:46
[2022-03-28 11:10] VITALS: BP 125/59
--- NOTE | 2022-03-28 15:34 | OPERATIVE REPORT ---
DATE OF SERVICE: 03/28/2022 PREOPERATIVE DIAGNOSES: Dysphagia, Damian's esophagus and screening colonoscopy. POSTOPERATIVE DIAGNOSES: Damian's esophagus, stomach gastric mucosal change, colon polyp x2. PROCEDURE: EGD with biopsies, colonoscopy with hot polypectomy x2. SURGEON: Jeffrey Leonardo DO ANESTHESIA: Per MDA. ESTIMATED BLOOD LOSS: None. COMPLICATIONS: None. SPECIMENS: Antrum, body, GE junction and colon polyps. INDICATIONS: The patient is a 56-year-old male with history of Damian's needing screening colonoscopy. He understands risks and benefits of procedure and wished to proceed. Consent was signed in the chart. DESCRIPTION OF PROCEDURE: The patient was taken to the endoscopy suite, placed in left lateral recumbent position. Timeout was performed. Scope was inserted in mouth, down the esophagus, stomach and into the duodenum demonstrating the anastomosis. No polyps, masses or ulcerations. Scope was retracted back into the stomach where it was further insufflated. Biopsy of the antrum was obtained. There are mucosal changes of the stomach, which biopsy of the body was obtained. Scope was retroflexed noting a small hiatal hernia, no other pathology. Scope was returned to its normal position, slowly withdrawn to distal esophagus showing changes of Damian's. Multiple biopsies were obtained. Scope was slowly retracted back until completely removed. Digital rectal exam was performed. No palpable polyps, masses or ulcerations. Scope was inserted in the rectum and advanced all the way to cecum with minimal difficulty. Prep was adequate with irrigation and suction. Scope was then slowly retracted back. No polyps, masses or ulcerations within the cecum, ascending, and transverse colon. In descending colon, a small polyp was present, which hot biopsy polypectomy was performed. Scope was continuously retracted back. No polyps, masses or ulcerations in the sigmoid colon. In the rectum, small polyp was present, which hot biopsy polypectomy was performed. Scope was retroflexed. No other pathology. Scope was returned to its normal position, slowly withdrawn until completely removed. The patient tolerated the procedure well without any complications, taken to recovery room in stable condition. RECOMMENDATIONS: The patient will probably need repeat EGD in 2 years. Await biopsy results. The patient will need repeat colonoscopy in 5 years. Any issues before that be seen at that time. The patient will follow up on biopsy results. Job ID: [id number] DocumentID: [id number] Dictated Date: 03/28/2022 10:48:36 Scada Technician Date: 03/28/2022 15:33:34 Dictated By: JEFFREY LEONARDO DO
== END 2022-03-28 11:15 | disposition home or self-care (01) ==
LOC: ENDO 07:43
PROVIDERS: ATTEND Surgery
DX: Z12.11 Encounter for screening for malignant neoplasm of colon (principal); K63.5 Polyp of colon; K62.1 Rectal polyp; K22.70 Barrett's esophagus without dysplasia; K31.89 Other diseases of stomach and duodenum; K44.9 Diaphragmatic hernia without obstruction or gangrene; Z87.891 Personal history of nicotine dependence; Z86.010 Personal history of colon polyps
CPT/HCPCS: 88305

== ENCOUNTER → 2022-12-07 | Outpatient (CLI) | payer MEDICARE, MEDICAID ==
--- NOTE | 2022-12-11 09:47 | Diagnostic Imaging Report ---
Indication: Abnormal recent CT lung screening study performed at [facility]. Serum blood glucose level at time of injection 71 mg/dL. Patient was administered 10.2 mCi F-18 FDG intravenously and PET imaging was performed from the top of skull to mid thighs. Noncontrast CT was also performed for attenuation correction and anatomic correlation. The outside CT is not available for direct comparison. There is symmetric activity throughout the brain. Soft tissues of the neck are unremarkable. There is low level activity within the cavitary mass in the left lung apex with an SUV max of 2.7. No other pulmonary parenchymal regions of hypermetabolism are identified. There is no mediastinal or hilar hypermetabolism. There is physiologic activity throughout the gastrointestinal and genitourinary tract of abdomen and pelvis. No suspicious areas of hypermetabolism are identified. IMPRESSION: The irregular and partially cavitary lesion in the left lung apex, noted on prior exam demonstrates low-level activity. Even so, continued close interval conventional CT chest follow-up would be recommended to ensure stability. No other significant abnormality is detected. Dictated by: Dictated on workstation # [id number]
== END ==
LOC: RAD 09:51
PROVIDERS: ATTEND Pediatrics
DX: Z12.2 Encounter for screening for malignant neoplasm of respiratory organs (principal); J44.9 Chronic obstructive pulmonary disease, unspecified; R91.1 Solitary pulmonary nodule; R93.89 Abnormal findings on diagnostic imaging of other specified body structures; R91.8 Other nonspecific abnormal finding of lung field; F17.200 Nicotine dependence, unspecified, uncomplicated
CPT/HCPCS: 78815; 82947; A9552